=== PATIENT | male | born 1955 | race African-American/Black ===

== ENCOUNTER 2017-04-16 09:01 | Inpatient (IN) | payer OTHER ==
[2017-04-16 09:45] VITALS: BMI 20.5
--- NOTE | 2017-04-16 12:07 | HP ---
CIWA Score - CIWA Score Nausea/Vomitin Muscle Tremors: 3 Anxiety: 3 Agitation: 2 Paroxysmal Sweats: 1-Minimal Palms Moist Orientation: 0-Oriented Tacttile Disturbances: 2-Mild Itch/Numbness/Burn Auditory Disturbances: 2-Mild Harshness/Frighten Visual Disturbances: 2-Mild Sensitivity Headache: 2-Mild CIWA-Ar Total Score: 20 Admission ROS BHS - HPI Chief Complaint: i need help to stop drinking alcohol and cocaine Allergies/Adverse Reactions: Allergies Allergy/AdvReac Type Severity Reaction Status Date / Time haloperidol [From Haldol] AdvReac Severe stiffness Verified 04/16/17 11:45 haloperidol lactate AdvReac Severe stiffness Verified 04/16/17 11:45 [From Haldol] risperidone [From Risperdal] AdvReac Severe stiffness Verified 04/16/17 11:44 History of Present Illness: this 61 years old male with alcohol and cocaine dependence,seeking detox,last treatment 02/11/16 to 02/25/16 syncope alcohol related schizophrenia weight loss s/p surgery for perforated peptic ulcer in 1991 longest period of sobriety 1 year Exam Limitations: No Limitations - Ebola screening Have you traveled outside of the country in the last 21 days: No Have you been sick,other than usual withdrawal symptoms: No - Review of Systems Constitutional: Loss of Appetite, Malaise, Night Sweats, Unintentional Wgt. Loss EENT: reports: No Symptoms Reported Respiratory: reports: No Symptoms reported GI: reports: Diarrhea, Nausea, Vomiting : reports: No Symptoms Reported Musculoskeletal: reports: Back Pain, Muscle Pain Integumentary: reports: Dryness Neuro: reports: Headache, Tremors Endocrine: reports: No Symptoms Reported Hematology: reports: No Symptoms Reported Psychiatric: reports: No Sypmtoms Reported, Judgement Intact, Mood/Affect Appropiate, Orientated x3, other (schizophrenia) Patient History - Patient Medical History Hx Asthma: No Hx Chronic Obstructive Pulmonary Disease (COPD): No Hx Cancer: No Hx Cardiac Disorders: No Hx Congestive Heart Failure: No Hx Hypertension: Yes (no med) Hx Hypercholesterolemia: No Hx Pacemaker: No HX Cerebrovascular Accident: No Hx Seizures: No Hx Dementia: No Hx Diabetes: No Hx Gastrointestinal Disorders: No Hx Liver Disease: No Hx Genitourinary Disorders: No Hx Sexually Transmitted Disorders: No Hx Renal Disease (ESRD): No Hx Thyroid Disease: No Hx Human Immunodeficiency Virus (HIV): No (last 2014) Hx Hepatitis C: Yes Hx Depression: No Hx Suicide Attempt: No (DENIES) Hx Bipolar Disorder: No Hx Schizophrenia: Yes (ZYPREXA 20 MG HS) Other Medical History: no suicidal,no homicidal - Patient Surgical History Past Surgical History: Yes Hx Neurologic Surgery: No Hx Cataract Extraction: No Hx Cardiac Surgery: No Hx Lung Surgery: No Hx Breast Surgery: No Hx Breast Biopsy: No Hx Abdominal Surgery: Yes (abdomen perforated peptic ulcer in 1991) Hx Appendectomy: No Hx Cholecystectomy: No Hx Genitourinary Surgery: No Hx Section: No Hx Orthopedic Surgery: No Anesthesia Reaction: No - PPD History Previous Implant?: Yes Documented Results: Negative w/o proof Date: 02/23/16 Results: 0 mm PPD to be Administered?: Yes - Smoking Cessation Smoking history: Current every day smoker Have you smoked in the past 12 months: Yes Aproximately how many cigarettes per day: 20 Hx Chewing Tobacco Use: No Initiated information on smoking cessation: Yes 'Breaking Loose' booklet given: 04/16/17 - Substance & Tx. History Hx Alcohol Use: Yes Hx Substance Use: Yes Substance Use Type: Alcohol, Cocaine Hx Substance Use Treatment: Yes (last treatment 02/21/16 to 02/25/16) - Substances Abused Crack Route: Smoking Frequency: Daily Amount used: $20 Age of first use: 33 Date of Last Use: 04/15/17 Alcohol-vodka Route: Oral Frequency: Daily Amount used: 1 pt./2-6 pks. (beer) Age of first use: 24 Date of Last Use: 04/15/17 Family Disease History - Family Disease History Family History: Denies Admission Physical Exam S - Vital Signs Vital Signs: Vital Signs - 24 hr 04/16/17 09:41 Temperature 97.5 F L Pulse Rate 80 Respiratory 18 Rate Blood Pressure 140/87 - Physical General Appearance: Yes: Moderate Distress, Tremorous, Irritable, Sweating, Anxious HEENTM: Yes: Normal ENT Inspection, TESFAYE, Pharynx Normal Respiratory: Yes: Lungs Clear, Normal Breath Sounds, No Respiratory Distress Neck: Yes: Within Normal Limits, Supple, Trachea in good position Breast: Yes: Breast Exam Deferred Cardiology: Yes: Within Normal Limits, Regular Rhythm, Regular Rate, S1, S2 Abdominal: Yes: Within Normal Limits, Normal Bowel Sounds, Non Tender, Soft, Surgical Scar Genitourinary: Yes: Within Normal Limits Back: Yes: Muscle Spasm Musculoskeletal: Yes: full range of Motion, Back pain, Muscle Pain Neurological: Yes: door slinger II-XII NML intact, Fully Oriented, Alert, Motor Strength 5/5 Integumentary: Yes: Dry Lymphatic: Yes: Within Normal Limits - Diagnostic (1) Alcohol dependence with uncomplicated withdrawal Current Visit: No Status: Acute (2) Cocaine dependence, uncomplicated Current Visit: Yes Status: Acute (3) Nicotine dependence Current Visit: Yes Status: Acute (4) Hepatitis C Current Visit: Yes Status: Chronic Qualifiers: Viral hepatitis chronicity: chronic Hepatic coma status: without hepatic coma Qualified Code(s): B18.2 - Chronic viral hepatitis C (5) Hypertension Current Visit: Yes Status: Chronic Qualifiers: Hypertension type: essential hypertension Qualified Code(s): I10 - Essential (primary) hypertension (6) Schizophrenia Current Visit: Yes Status: Chronic Qualifiers: Schizophrenia type: unspecified Qualified Code(s): F20.9 - Schizophrenia, unspecified (7) Weight loss Current Visit: Yes Status: Acute Cleared for Admission BHS - Detox or Rehab [facility] Level of Care: Medically Managed Detox Regimen/Protocol: Librium S Breath Alcohol Content Breath Alcohol Content: 0 Urine Drug Screen - Results Drug Screen Negative: No Urine Drug Screen Results: PAOLO-Cocaine
[2017-04-16] MEDS ORDERED: MAG HYDROX/AL HYDROX/SIMETH 30 ML UNIT-DOSE CUP PO PRN (12:20)
[2017-04-16] MEDS ORDERED: IBUPROFEN 400 MG TABLET (FP) PO PRN (12:20)
[2017-04-16] MEDS ORDERED: LOPERAMIDE HCL 2 MG CAPSULE PO PRN (12:20)
[2017-04-16] MEDS ORDERED: chlordiazePOXIDE HCL 25 MG CAPSULE PO PRN (12:20)
[2017-04-16] MEDS ORDERED: diphenhydrAMINE HCL 50 MG CAPSULE PO PRN (12:20)
[2017-04-16] MEDS ORDERED: MAGNESIUM CITRATE 300 ML BOTTLE PO PRN (12:20)
[2017-04-16] MEDS ORDERED: P-EPHED 60MG/TRIPROLIDI 2.5MG TABLET PO PRN (12:20)
[2017-04-16] MEDS ORDERED: hydrOXYzine PAMOATE 25 MG CAPSULE (FP) PO PRN (12:20)
[2017-04-16] MEDS ORDERED: ACETAMINOPHEN 325 MG TABLET (FP) PO PRN (12:20)
[2017-04-16] MEDS ORDERED: MAGNESIUM HYDROX 2400MG/30ML ORAL SUSPENSION 30 ML CUP PO PRN (12:20)
[2017-04-16] MEDS ORDERED: chlordiazePOXIDE HCL 25 MG CAPSULE PO ONE (13:30)
[2017-04-16] MEDS: chlordiazePOXIDE HCL 25 MG CAPSULE PO SCH ×2 (17:22→22:22)
[2017-04-16 17:51] LABS: URINE APPEARANCE CLEAR; URINE BILIRUBIN NEGATIVE (NEGATIVE); URINE BLOOD NEGATIVE (NEGATIVE); URINE COLOR YELLOW; URINE GLUCOSE (UA) NEGATIVE (NEGATIVE); URINE KETONE NEGATIVE (NEGATIVE); URINE LEUK ESTERASE NEGATIVE (NEGATIVE); URINE NITRITE NEGATIVE (NEGATIVE); URINE PROTEIN NEGATIVE (NEGATIVE); URINE UROBILINOGEN NEGATIVE mg/dL (0.2-1.0)
[2017-04-16] MEDS: THIAMINE HCL 100 MG TABLET (FP) PO SCH (22:21)
[2017-04-16] MEDS: guaiFENesin/D-METHORPHAN HB 10 ML UNIT-DOSE CUPS PO PRN (22:23)
[2017-04-17] MEDS: guaiFENesin/D-METHORPHAN HB 10 ML UNIT-DOSE CUPS PO PRN ×2 (02:50→14:59)
[2017-04-17] MEDS: chlordiazePOXIDE HCL 25 MG CAPSULE PO SCH ×4 (05:35→22:14)
[2017-04-17 08:16] LABS: HIV 1 & 2 AB NEGATIVE; HIV 1 AGp24 NEGATIVE
[2017-04-17] MEDS: NICOTINE 21 MG/24 HOURS TOPICAL PATCH TD SCH (10:17)
[2017-04-17] MEDS: PRENATAL VITAMINS W/ FOLIC ACID TABLET (FP) PO SCH (10:18)
[2017-04-17 10:37] LABS: ANION GAP 5 (8-16); CALCIUM 9.8 mg/dL (8.5-10.1); CO2 30 mmol/L (21-32); GLUCOSE,RANDOM 94 mg/dL (74-106)
[2017-04-17 10:42] LABS: ALK PHOS 144 U/L (45-117); BILIRUBIN,TOTAL 0.5 mg/dL (0.2-1.0); SGOT/AST 99 U/L (15-37); SGPT/ALT 120 U/L (12-78); TOT PROT 8.7 g/dl (6.4-8.2)
--- NOTE | 2017-04-17 11:28 | CONSULT ---
[facility] Psychiatric Consult - Data Date of interview: 04/17/17 Admission source: [facility] Identifying data: Readmission to [facility] for this 61 y/o AA male seeking detox treatment on for alcohol and cocaine dependence.Patient is ,a father of six,domiciled,unemployed and supported on SSI benefits. Substance Abuse History: Confirmed by patient in this interview. Smoking Cessation. Smoking history: Current every day smoker. Have you smoked in the past 12 months: Yes. Aproximately how many cigarettes per day: 20. Hx Chewing Tobacco Use: No. Initiated information on smoking cessation: Yes. 'Breaking Loose' booklet given: 04/16/17. - Substance & Tx. History. Hx Alcohol Use: Yes. Hx Substance Use: Yes. Substance Use Type: Alcohol, Cocaine. Hx Substance Use Treatment: Yes (last treatment 02/21/16 to 02/25/16) Medical History: Remarkable for a history of surgery for perforated peptic ulcer ,hepatitis C and hypertension. Psychiatric History: Patient is a good and consistent historian.He reports a history of " more than 10 " psychiatric hospitalizations in his lifetime.Diagnosed with Paranoid Schizophrenia (onset at age 21).Mr Saini is still followed at the [facility].Maintained on a regimen of olanzapine 10 mg/hs and celexa 20 mg/day.Chronically non-adherent to [facility] care.Known to [facility].Patient denies history of suicide attempts. Physical/Sexual Abuse/Trauma History: Patient denies. Additional Comment: Urine Drug Screen Results: PAOLO-Cocaine.Noted. Mental Status Exam - Mental Status Exam Alert and Oriented to: Time, Place, Person Cognitive Function: Good Patient Appearance: Well Groomed Mood: Hopeful, Euthymic Affect: Appropriate, Normal Range Patient Behavior: Fatigued, Appropriate, Cooperative Speech Pattern: Clear Voice Loudness: Normal Thought Process: Goal Oriented Thought Disorder: Not Present Hallucinations: Denies Suicidal Ideation: Denies Homicidal Ideation: Denies Insight/Judgement: Poor Sleep: Poorly, Difficulty falling asleep Appetite: Good Muscle strength/Tone: Normal Gait/Station: Normal Psychiatric Findings - Problem List ([place] 1, 2,3) (1) Schizophrenia Current Visit: Yes Status: Chronic Qualifiers: Schizophrenia type: unspecified Qualified Code(s): F20.9 - Schizophrenia, unspecified (2) Alcohol dependence with uncomplicated withdrawal Current Visit: No Status: Acute (3) Cocaine dependence, uncomplicated Current Visit: Yes Status: Acute (4) Nicotine dependence Current Visit: Yes Status: Acute (5) H/O abdominal surgery Current Visit: Yes Status: Chronic (6) Hepatitis C Current Visit: Yes Status: Chronic Qualifiers: Viral hepatitis chronicity: chronic Hepatic coma status: without hepatic coma Qualified Code(s): B18.2 - Chronic viral hepatitis C (7) Hypertension Current Visit: Yes Status: Chronic Qualifiers: Hypertension type: essential hypertension Qualified Code(s): I10 - Essential (primary) hypertension (8) Insomnia Current Visit: Yes Status: Acute - Initial Treatment Plan Initial Treatment Plan: Psychoeducation.Detoxification.Medications : celexa 20 mg po daily + zyprexa 7.5 mg po hs.Side effects/benefits of both drugs are discussed with patient.He insists on resuming these medications.Observation.Pharmacy claims reviewed : none recent.Patient reports to this [facility] underwriter that he has " not taken medications for about two weeks ".
--- NOTE | 2017-04-17 12:00 | PN ---
[facility] CIWA - CIWA Score Nausea/Vomitin-No Nausea/No Vomiting Muscle Tremors: 4-Moderate,w/Arms Extend Anxiety: 3 Agitation: 3 Paroxysmal Sweats: 3 Orientation: 0-Oriented Tacttile Disturbances: 0-None Auditory Disturbances: 2-Mild Harshness/Frighten Visual Disturbances: 3-Moderate Sensitivity Headache: 0-None Present CIWA-Ar Total Score: 18 S Progress Note (SOAP) Subjective: Interrupted Sleep, Anxious, Tremors. Objective: PT. A & O X 3, OBSERVED AMBULATING ON UNIT. NO ACUTE DISTRESS. 04/17/17 11:52 Vital Signs Temperature 97.5 F L 04/17/17 09:25 Pulse Rate 79 04/17/17 09:25 Respiratory Rate 18 04/17/17 09:25 Blood Pressure 151/93 04/17/17 09:25 O2 Sat by Pulse Oximetry (%) Laboratory Tests 04/16/17 04/16/17 04/17/17 12:00 14:00 06:00 WBC 5.0 RBC 4.96 Hgb 12.5 D Hct 39.8 MCV 80.3 MCH 25.2 L MCHC 31.3 L RDW 14.1 Plt Count 297 D MPV 8.9 D Sodium Potassium Chloride Carbon Dioxide Anion Gap BUN Creatinine Creat Clearance w eGFR Random Glucose Calcium Total Bilirubin AST ALT Alkaline Phosphatase Total Protein Albumin Urine Color Yellow Urine Appearance Clear Urine pH 5.0 Ur Specific [place] 1.025 Urine Protein Negative Urine Glucose (UA) Negative Urine Ketones Negative Urine Blood Negative Urine Nitrite Negative Urine Bilirubin Negative Urine Urobilinogen Negative Ur Leukocyte Esterase Negative HIV 1&2 Antibody Screen Negative HIV P24 Antigen Negative 04/17/17 06:00 WBC RBC Hgb Hct MCV MCH MCHC RDW Plt Count MPV Sodium 140 Potassium 4.7 Chloride 105 Carbon Dioxide 30 Anion Gap 5 L BUN 22 H Creatinine 1.0 Creat Clearance w eGFR > 60 Random Glucose 94 D Calcium 9.8 Total Bilirubin 0.5 AST 99 H D ALT 120 H D Alkaline Phosphatase 144 H D Total Protein 8.7 H Albumin 3.0 L Urine Color Urine Appearance Urine pH Ur Specific [place] Urine Protein Urine Glucose (UA) Urine Ketones Urine Blood Urine Nitrite Urine Bilirubin Urine Urobilinogen Ur Leukocyte Esterase HIV 1&2 Antibody Screen HIV P24 Antigen LABS NOTED. Assessment: 04/17/17 11:54 WITHDRAWAL SYMPTOMS. CONTINUE TO MONITOR BP. 04/17/17 12:01 Plan: CONTINUE DETOX. HEPATIC FUNCTION PANEL ON 04/19/2017 FOR ABNORMAL HEPATIC VALUES ON ADMISSION.
--- NOTE | 2017-04-17 12:57 | EKG ---
Test Reason : Blood Pressure : / mmHG Vent. Rate : 079 BPM Atrial Rate : 079 BPM P-R Int : 136 ms QRS Dur : 092 ms QT Int : 394 ms P-R-T Axes : 063 056 058 degrees QTc Int : 451 ms NORMAL SINUS RHYTHM POSSIBLE LEFT ATRIAL ENLARGEMENT BORDERLINE ECG NO PREVIOUS ECGS AVAILABLE Confirmed by GINA YUAN, CHIQUITA ([id number]) on 04/17/2017 12:57:09 PM Referred By: Pantera Michaels Confirmed By:CHIQUITA FUENTES MD
[2017-04-17] MEDS: THIAMINE HCL 100 MG TABLET (FP) PO SCH (22:14)
[2017-04-17] MEDS: OLANZapine 7.5 MG TABLET PO SCH (22:14)
[2017-04-17] MEDS: MENTHOL/PHENOL 1 EACH UD MM PRN (22:16)
[2017-04-18] MEDS: guaiFENesin/D-METHORPHAN HB 10 ML UNIT-DOSE CUPS PO PRN (05:00)
[2017-04-18] MEDS: MENTHOL/PHENOL 1 EACH UD MM PRN ×3 (05:02→22:23)
[2017-04-18] MEDS: chlordiazePOXIDE HCL 25 MG CAPSULE PO SCH ×2 (05:58→10:08)
[2017-04-18] MEDS: CITALOPRAM HYDROBROMIDE 20 MG TABLET (FP) PO SCH (10:08)
[2017-04-18] MEDS: PRENATAL VITAMINS W/ FOLIC ACID TABLET (FP) PO SCH (10:08)
[2017-04-18] MEDS: NICOTINE 21 MG/24 HOURS TOPICAL PATCH TD SCH (10:09)
--- NOTE | 2017-04-18 12:43 | PN ---
[facility] CIWA - CIWA Score Nausea/Vomitin-Mild Nausea/No Vomiting Muscle Tremors: 4-Moderate,w/Arms Extend Anxiety: 4-Mod. Anxious/Guarded Agitation: 2 Paroxysmal Sweats: 3 Orientation: 2-Disoriented Date<2 days Tacttile Disturbances: 0-None Auditory Disturbances: 1-Very Mild Visual Disturbances: 2-Mild Sensitivity Headache: 0-None Present CIWA-Ar Total Score: 19 S Progress Note (SOAP) Subjective: Tremors, Chills, Sweating. Objective: PT. A & O X 2 (DISORIENTED ABOUT DAY / DATE). PT. OBSERVED AMBULATING ON UNIT. NO ACUTE DISTRESS. 04/18/17 12:41 Vital Signs Temperature 97.0 F L 04/18/17 06:35 Pulse Rate 76 04/18/17 09:48 Respiratory Rate 18 04/18/17 09:48 Blood Pressure 123/89 04/18/17 09:48 O2 Sat by Pulse Oximetry (%) Laboratory Tests 04/16/17 04/16/17 04/17/17 12:00 14:00 06:00 WBC 5.0 RBC 4.96 Hgb 12.5 D Hct 39.8 MCV 80.3 MCH 25.2 L MCHC 31.3 L RDW 14.1 Plt Count 297 D MPV 8.9 D Sodium Potassium Chloride Carbon Dioxide Anion Gap BUN Creatinine Creat Clearance w eGFR Random Glucose Calcium Total Bilirubin AST ALT Alkaline Phosphatase Total Protein Albumin Urine Color Yellow Urine Appearance Clear Urine pH 5.0 Ur Specific [place] 1.025 Urine Protein Negative Urine Glucose (UA) Negative Urine Ketones Negative Urine Blood Negative Urine Nitrite Negative Urine Bilirubin Negative Urine Urobilinogen Negative Ur Leukocyte Esterase Negative RPR Titer HIV 1&2 Antibody Screen Negative HIV P24 Antigen Negative 04/17/17 04/17/17 06:00 06:00 WBC RBC Hgb Hct MCV MCH MCHC RDW Plt Count MPV Sodium 140 Potassium 4.7 Chloride 105 Carbon Dioxide 30 Anion Gap 5 L BUN 22 H Creatinine 1.0 Creat Clearance w eGFR > 60 Random Glucose 94 D Calcium 9.8 Total Bilirubin 0.5 AST 99 H D ALT 120 H D Alkaline Phosphatase 144 H D Total Protein 8.7 H Albumin 3.0 L Urine Color Urine Appearance Urine pH Ur Specific [place] Urine Protein Urine Glucose (UA) Urine Ketones Urine Blood Urine Nitrite Urine Bilirubin Urine Urobilinogen Ur Leukocyte Esterase RPR Titer Nonreactive HIV 1&2 Antibody Screen HIV P24 Antigen LABS NOTED. Assessment: 04/18/17 12:42 WITHDRAWAL SYMPTOMS. Plan: CONTINUE DETOX.
[2017-04-18] MEDS: chlordiazePOXIDE 5 MG CAPSULE PO SCH ×2 (17:04→22:23)
[2017-04-18] MEDS: OLANZapine 7.5 MG TABLET PO SCH (22:22)
[2017-04-18] MEDS: THIAMINE HCL 100 MG TABLET (FP) PO SCH (22:22)
[2017-04-19] MEDS: chlordiazePOXIDE 5 MG CAPSULE PO SCH ×2 (05:18→10:18)
[2017-04-19] MEDS: MENTHOL/PHENOL 1 EACH UD MM PRN ×3 (05:21→22:18)
[2017-04-19 09:47] LABS: ALBUMIN 2.8 g/dl (3.4-5.0); BILIRUBIN,DIRECT 0.2 mg/dL (0.0-0.2); BILIRUBIN,TOTAL 0.2 mg/dL (0.2-1.0); TOT PROT 7.8 g/dl (6.4-8.2)
[2017-04-19] MEDS: CITALOPRAM HYDROBROMIDE 20 MG TABLET (FP) PO SCH (10:19)
[2017-04-19] MEDS: PRENATAL VITAMINS W/ FOLIC ACID TABLET (FP) PO SCH (10:19)
[2017-04-19] MEDS: NICOTINE 21 MG/24 HOURS TOPICAL PATCH TD SCH (10:19)
--- NOTE | 2017-04-19 11:44 | PN ---
BHS Progress Note (SOAP) Subjective: sweats Objective: 04/19/17 11:41 Vital Signs Temperature 97.5 F L 04/19/17 10:18 Pulse Rate 91 H 04/19/17 10:18 Respiratory Rate 20 04/19/17 10:18 Blood Pressure 120/80 04/19/17 10:18 O2 Sat by Pulse Oximetry (%) Laboratory Tests 04/16/17 04/16/17 04/17/17 12:00 14:00 06:00 WBC 5.0 RBC 4.96 Hgb 12.5 D Hct 39.8 MCV 80.3 MCH 25.2 L MCHC 31.3 L RDW 14.1 Plt Count 297 D MPV 8.9 D Sodium Potassium Chloride Carbon Dioxide Anion Gap BUN Creatinine Creat Clearance w eGFR Random Glucose Calcium Total Bilirubin Direct Bilirubin AST ALT Alkaline Phosphatase Total Protein Albumin Urine Color Yellow Urine Appearance Clear Urine pH 5.0 Ur Specific [place] 1.025 Urine Protein Negative Urine Glucose (UA) Negative Urine Ketones Negative Urine Blood Negative Urine Nitrite Negative Urine Bilirubin Negative Urine Urobilinogen Negative Ur Leukocyte Esterase Negative RPR Titer HIV 1&2 Antibody Screen Negative HIV P24 Antigen Negative 04/17/17 04/17/17 04/19/17 06:00 06:00 07:00 WBC RBC Hgb Hct MCV MCH MCHC RDW Plt Count MPV Sodium 140 Potassium 4.7 Chloride 105 Carbon Dioxide 30 Anion Gap 5 L BUN 22 H Creatinine 1.0 Creat Clearance w eGFR > 60 Random Glucose 94 D Calcium 9.8 Total Bilirubin 0.5 0.2 D Direct Bilirubin 0.2 AST 99 H D 94 H ALT 120 H D 116 H Alkaline Phosphatase 144 H D 107 D Total Protein 8.7 H 7.8 Albumin 3.0 L 2.8 L Urine Color Urine Appearance Urine pH Ur Specific [place] Urine Protein Urine Glucose (UA) Urine Ketones Urine Blood Urine Nitrite Urine Bilirubin Urine Urobilinogen Ur Leukocyte Esterase RPR Titer Nonreactive HIV 1&2 Antibody Screen HIV P24 Antigen pt aox3 in nad ambulatng Assessment: 04/19/17 11:42 withdrawal sx's Plan: cont. detox increase fluids d/c in am
[2017-04-19] MEDS: chlordiazePOXIDE HCL 10 MG CAPSULE PO SCH ×2 (17:21→22:17)
[2017-04-19] MEDS: THIAMINE HCL 100 MG TABLET (FP) PO SCH (22:17)
[2017-04-19] MEDS: OLANZapine 7.5 MG TABLET PO SCH (22:17)
[2017-04-20] MEDS: MENTHOL/PHENOL 1 EACH UD MM PRN (02:37)
[2017-04-20] MEDS: guaiFENesin/D-METHORPHAN HB 10 ML UNIT-DOSE CUPS PO PRN (02:37)
[2017-04-20] MEDS: chlordiazePOXIDE HCL 10 MG CAPSULE PO SCH (05:57)
[2017-04-20 06:49] VITALS: BP 119/90; PULSE 99; TEMP 97.7
[2017-04-20] MEDS: NICOTINE 21 MG/24 HOURS TOPICAL PATCH TD SCH (09:00)
[2017-04-20] MEDS: PRENATAL VITAMINS W/ FOLIC ACID TABLET (FP) PO SCH (09:00)
[2017-04-20] MEDS: CITALOPRAM HYDROBROMIDE 20 MG TABLET (FP) PO SCH (09:00)
--- NOTE | 2017-04-20 19:43 | DS ---
[facility] Detox Discharge Summary Admission Date: 04/16/17 Discharge Date: 04/20/17 - History Present History: Alcohol Dependence, Cocaine Dependence Additional Comments: PATIENT WILL GO TO [facility] ([place], [place]) FOR AFTERCARE. PATIENT WAS DISCHARGED FROM UNIT IN STABLE MEDICAL CONDITION. Pertinent Past History: Hep C, HTN (No meds.), History of Abdominal Surgery, Insomnia, Schizophrenia. - Physical Exam Results Vital Signs: Vital Signs Temperature 97.7 F 04/20/17 06:48 Pulse Rate 99 H 04/20/17 06:48 Respiratory Rate 18 04/20/17 06:48 Blood Pressure 119/90 04/20/17 06:48 O2 Sat by Pulse Oximetry (%) Pertinent Admission Physical Exam Findings: WITHDRAWAL SYMPTOMS. Laboratory Tests 04/16/17 04/16/17 04/17/17 12:00 14:00 06:00 WBC 5.0 RBC 4.96 Hgb 12.5 D Hct 39.8 MCV 80.3 MCH 25.2 L MCHC 31.3 L RDW 14.1 Plt Count 297 D MPV 8.9 D Sodium Potassium Chloride Carbon Dioxide Anion Gap BUN Creatinine Creat Clearance w eGFR Random Glucose Calcium Total Bilirubin Direct Bilirubin AST ALT Alkaline Phosphatase Total Protein Albumin Urine Color Yellow Urine Appearance Clear Urine pH 5.0 Ur Specific [place] 1.025 Urine Protein Negative Urine Glucose (UA) Negative Urine Ketones Negative Urine Blood Negative Urine Nitrite Negative Urine Bilirubin Negative Urine Urobilinogen Negative Ur Leukocyte Esterase Negative RPR Titer HIV 1&2 Antibody Screen Negative HIV P24 Antigen Negative 04/17/17 04/17/17 04/19/17 06:00 06:00 07:00 WBC RBC Hgb Hct MCV MCH MCHC RDW Plt Count MPV Sodium 140 Potassium 4.7 Chloride 105 Carbon Dioxide 30 Anion Gap 5 L BUN 22 H Creatinine 1.0 Creat Clearance w eGFR > 60 Random Glucose 94 D Calcium 9.8 Total Bilirubin 0.5 0.2 D Direct Bilirubin 0.2 AST 99 H D 94 H ALT 120 H D 116 H Alkaline Phosphatase 144 H D 107 D Total Protein 8.7 H 7.8 Albumin 3.0 L 2.8 L Urine Color Urine Appearance Urine pH Ur Specific [place] Urine Protein Urine Glucose (UA) Urine Ketones Urine Blood Urine Nitrite Urine Bilirubin Urine Urobilinogen Ur Leukocyte Esterase RPR Titer Nonreactive HIV 1&2 Antibody Screen HIV P24 Antigen LABS NOTED. - Treatment Hospital Course: Detox Protocol Followed, Detoxed Safely, Responded well, Discharged Condition Good Patient has Accepted a Rehab Referral to: PT. GOING TO [facility] ([place], [place]) FOR AFTERCARE. - Medication Discharge Medications: Ambulatory Orders Olanzapine [Zyprexa] 20 mg PO HS 02/21/16 Citalopram Hydrobromide [Celexa -] 20 mg PO DAILY #30 tablet 04/17/17 Olanzapine [Zyprexa] 10 mg PO HS #30 tablet 04/17/17 - Diagnosis (1) Alcohol dependence with uncomplicated withdrawal Status: Acute (2) Cocaine dependence, uncomplicated Status: Acute (3) Insomnia Status: Acute Qualifiers: Insomnia type: unspecified Qualified Code(s): G47.00 - Insomnia, unspecified (4) Nicotine dependence Status: Chronic Qualifiers: Nicotine product type: cigarettes Substance use status: uncomplicated Qualified Code(s): F17.210 - Nicotine dependence, cigarettes, uncomplicated (5) Weight loss Status: Acute (6) H/O abdominal surgery Status: Chronic (7) Hepatitis C Status: Chronic Qualifiers: Viral hepatitis chronicity: chronic Hepatic coma status: without hepatic coma Qualified Code(s): B18.2 - Chronic viral hepatitis C (8) Hypertension Status: Chronic Qualifiers: Hypertension type: essential hypertension Qualified Code(s): I10 - Essential (primary) hypertension (9) Schizophrenia Status: Chronic Qualifiers: Schizophrenia type: unspecified Qualified Code(s): F20.9 - Schizophrenia, unspecified - AMA Did Patient Leave Against Medical Advice: No
== END 2017-04-20 09:09 | disposition home or self-care (01) | DRG 774 ==
LOC: YASAS 09:01 → Y3N 12:09
PROVIDERS: ADMIT Internal Medicine; ATTEND Internal Medicine
PROC: HZ2ZZZZ Detoxification Services for Substance Abuse Treatment (ICD-10-PCS; principal; 2017-04-20)
DX: F10.20 Alcohol dependence, uncomplicated (principal); F14.20 Cocaine dependence, uncomplicated; F17.210 Nicotine dependence, cigarettes, uncomplicated; F20.9 Schizophrenia, unspecified; G47.00 Insomnia, unspecified; B18.2 Chronic viral hepatitis C; I10 Essential (primary) hypertension; R63.4 Abnormal weight loss; Z68.20 Body mass index [BMI] 20.0-20.9, adult
CPT/HCPCS: 36415; 80053; 80076; 81003; 85027; 86593; 87389; 93005; 93010

== ENCOUNTER 2017-05-15 11:34 | Inpatient (IN) | payer OTHER ==
[2017-05-15 13:00] VITALS: BMI 22.8
--- NOTE | 2017-05-15 17:11 | HP ---
Admission ROS S - HPI Chief Complaint: I WANT TO GO TO REHAB Allergies/Adverse Reactions: Allergies Allergy/AdvReac Type Severity Reaction Status Date / Time haloperidol [From Haldol] AdvReac Severe stiffness Verified 05/15/17 16:48 haloperidol lactate AdvReac Severe stiffness Verified 05/15/17 16:48 [From Haldol] risperidone [From Risperdal] AdvReac Severe stiffness Verified 05/15/17 16:48 History of Present Illness: 61 YEARS OLD MALE WITH LONG HISTORY OF ALCOHOL COCAINE NICOTINE DEPENDENCE HAS HEPATITIS C AND SCHIZOPHRENIA IS ADMITTED TO REHAB Exam Limitations: No Limitations - Ebola screening Have you traveled outside of the country in the last 21 days: No Have you had contact with anyone from an Ebola affected area: No Have you been sick,other than usual withdrawal symptoms: No Do you have a fever: No - Review of Systems Constitutional: Loss of Appetite, Unintentional Wgt. Loss, Unexplained wgt Loss EENT: reports: Dental Problems (NO TEETH ABLE TO CHEW REGULAR FOOD) Respiratory: reports: No Symptoms reported Cardiac: reports: No Symptoms Reported GI: reports: Poor Appetite : reports: No Symptoms Reported Musculoskeletal: reports: No Symptoms Reported Integumentary: reports: No Symptoms Reported Neuro: reports: No Symptoms reported Endocrine: reports: No Symptoms Reported Hematology: reports: No Symptoms Reported Psychiatric: reports: Judgement Intact, Anxious, Depressed Other Systems: Reviewed and Negative Patient History - Patient Medical History Hx Anemia: No Hx Asthma: No Hx Chronic Obstructive Pulmonary Disease (COPD): No Hx Cancer: No Hx Cardiac Disorders: No Hx Congestive Heart Failure: No Hx Hypertension: No (no med) Hx Hypercholesterolemia: No Hx Pacemaker: No HX Cerebrovascular Accident: No Hx Seizures: No Hx Dementia: No Hx Diabetes: No Hx Gastrointestinal Disorders: No Hx Liver Disease: No Hx Genitourinary Disorders: No Hx Sexually Transmitted Disorders: No Hx Renal Disease (ESRD): No Hx Thyroid Disease: No Hx Human Immunodeficiency Virus (HIV): No (last 2014) Hx Hepatitis C: Yes Hx Depression: No Hx Suicide Attempt: No (DENIES) Hx Bipolar Disorder: No Hx Schizophrenia: Yes (ZYPREXA 20 MG HS) - Patient Surgical History Past Surgical History: Yes Hx Neurologic Surgery: No Hx Cataract Extraction: No Hx Cardiac Surgery: No Hx Lung Surgery: No Hx Breast Surgery: No Hx Breast Biopsy: No Hx Abdominal Surgery: Yes (abdomen perforated peptic ulcer in 1991) Hx Appendectomy: No Hx Cholecystectomy: No Hx Genitourinary Surgery: No Hx Orthopedic Surgery: No Anesthesia Reaction: No - PPD History Previous Implant?: Yes Documented Results: Negative w/proof Implanted On Prior [facility] Admission?: Yes Date: 04/18/17 Results: 0 mm PPD to be Administered?: No - Smoking Cessation Smoking history: Current every day smoker Have you smoked in the past 12 months: Yes Aproximately how many cigarettes per day: 40 Cigars Per Day: 0 Hx Chewing Tobacco Use: No Initiated information on smoking cessation: Yes 'Breaking Loose' booklet given: 05/15/17 - Substance & Tx. History Hx Alcohol Use: Yes Hx Substance Use: Yes Substance Use Type: Alcohol, Cocaine Hx Substance Use Treatment: Yes (04/16-04/20/17 [facility]) - Substances Abused Alcohol Route: Oral Frequency: Daily Amount used: 1 PINT VODKA Age of first use: 24 Date of Last Use: 05/15/17 Cocaine Route: Smoking Frequency: Daily Amount used: $40 Age of first use: 33 Date of Last Use: 05/10/17 Family Disease History - Family Disease History Family Disease History: CA: Father (), Mother (), Other: Father , Mother Admission Physical Exam S - Vital Signs Vital Signs: Vital Signs - 24 hr 05/15/17 12:58 Temperature 97 F L Pulse Rate 91 H Respiratory 20 Rate Blood Pressure 124/80 - Physical General Appearance: Yes: No Apparent Distress, Appropriately Dressed, Thin HEENTM: Yes: Hearing grossly Normal, Normal ENT Inspection, Normocephalic, Normal Voice, Other (NO TEETH) Respiratory: Yes: Chest Non-Tender, Lungs Clear, Normal Breath Sounds, No Respiratory Distress, No Accessory Muscle Use Neck: Yes: Supple, Trachea in good position Breast: Yes: Breasts Symetrical Cardiology: Yes: Regular Rhythm, S1, S2, Tachycardia Abdominal: Yes: Normal Bowel Sounds, Non Tender, Soft, Surgical Scar Genitourinary: Yes: Within Normal Limits Back: Yes: Normal Inspection Musculoskeletal: Yes: full range of Motion, Gait Steady Extremities: Yes: Normal Inspection, Normal Range of Motion, Non-Tender Neurological: Yes: Fully Oriented, Alert, Motor Strength 5/5, Normal Response, Depressed Affect Integumentary: Yes: Warm Lymphatic: Yes: Within Normal Limits - Diagnostic (1) Alcohol dependence with uncomplicated withdrawal Current Visit: Yes Status: Acute (2) Cocaine dependence, uncomplicated Current Visit: Yes Status: Chronic (3) Weight loss Current Visit: Yes Status: Acute (4) Hepatitis C Current Visit: Yes Status: Chronic Qualifiers: Viral hepatitis chronicity: chronic Hepatic coma status: without hepatic coma Qualified Code(s): B18.2 - Chronic viral hepatitis C (5) Nicotine dependence Current Visit: Yes Status: Acute Qualifiers: Nicotine product type: cigarettes Substance use status: in withdrawal Qualified Code(s): F17.213 - Nicotine dependence, cigarettes, with withdrawal (6) Schizophrenia Current Visit: Yes Status: Suspected Qualifiers: Schizophrenia type: unspecified Qualified Code(s): F20.9 - Schizophrenia, unspecified Cleared for Admission [facility] - Detox or Rehab [facility] Level of Care: Observation Bed Detox Regimen/Protocol: Not Applicable Claeared for Rehab Admission: Yes [facility] Breath Alcohol Content Breath Alcohol Content: 0 Urine Drug Screen - Results Drug Screen Negative: No Urine Drug Screen Results: PAOLO-Cocaine, BZO-Benzodiazepines Inpatient Rehab Admission - Initial Determination Are CD services needed?: Yes Free of communicable disease: Yes Not in need of hospitalization: Yes - Rehab Admission Criteria Previous failed treatment: Yes Poor recovery environment: Yes Comorbidities: Yes Lacks judgement: No Patient is meeting Inpatient Rehab admission criteria:: Yes
[2017-05-15] MEDS ORDERED: P-EPHED 60MG/TRIPROLIDI 2.5MG TABLET PO PRN (17:17)
[2017-05-15] MEDS ORDERED: MAG HYDROX/AL HYDROX/SIMETH 30 ML UNIT-DOSE CUP PO PRN (17:17)
[2017-05-15] MEDS ORDERED: LOPERAMIDE HCL 2 MG CAPSULE PO PRN (17:17)
[2017-05-15] MEDS ORDERED: MENTHOL/PHENOL 1 EACH UD MM PRN (17:17)
[2017-05-15] MEDS ORDERED: ACETAMINOPHEN 325 MG TABLET (FP) PO PRN (17:17)
[2017-05-15] MEDS ORDERED: guaiFENesin/D-METHORPHAN HB 10 ML UNIT-DOSE CUPS PO PRN (17:17)
[2017-05-15] MEDS ORDERED: NICOTINE POLACRILEX 4 MG GUM BC PRN (17:17)
[2017-05-15] MEDS ORDERED: IBUPROFEN 400 MG TABLET (FP) PO PRN (17:17)
[2017-05-15] MEDS ORDERED: hydrOXYzine PAMOATE 50 MG CAPSULE (FP) PO PRN (17:17)
[2017-05-15] MEDS ORDERED: MAGNESIUM CITRATE 300 ML BOTTLE PO PRN (17:17)
[2017-05-15] MEDS ORDERED: MAGNESIUM HYDROX 2400MG/30ML ORAL SUSPENSION 30 ML CUP PO PRN (17:17)
[2017-05-15 21:25] LABS: URINE APPEARANCE SLCLOUDY; URINE BILIRUBIN NEGATIVE (NEGATIVE); URINE BLOOD NEGATIVE (NEGATIVE); URINE COLOR YELLOW; URINE GLUCOSE (UA) NEGATIVE (NEGATIVE); URINE KETONE NEGATIVE (NEGATIVE); URINE LEUK ESTERASE TRACE (NEGATIVE); URINE NITRITE NEGATIVE (NEGATIVE); URINE PROTEIN NEGATIVE (NEGATIVE); URINE UROBILINOGEN NEGATIVE mg/dL (0.2-1.0)
[2017-05-15] MEDS: THIAMINE HCL 100 MG TABLET (FP) PO SCH (21:32)
[2017-05-15] MEDS: diphenhydrAMINE HCL 50 MG CAPSULE PO PRN (21:42)
[2017-05-15 21:47] LABS: CALCIUM OXALATE CRYSTALS FEW /hpf (NONE SEEN); URINE HYALINE CAST 1 /lpf; URINE MUCUS RARE; URINE RBC 1 /hpf (0-3); URINE WBC 5 /hpf (3-5)
[2017-05-16] MEDS: PRENATAL VITAMINS W/ FOLIC ACID TABLET (FP) PO SCH (10:06)
[2017-05-16] MEDS: NICOTINE 21 MG/24 HOURS TOPICAL PATCH TD SCH (10:07)
--- NOTE | 2017-05-16 11:38 | HP ---
Psychiatrist Admission - Data Date of interview: 05/16/17 Admission source: [facility] Identifying data: This is the first [facility] admission for this 61 years old Black male, father of 6 children, unemployed on SSI, homeless Medical History: Significant for hypertension, hepatitis c and a history of surgery for perforated peptic ulcer in 1991. Smokes cigarettes 2ppd Psychiatric History: Reports history of Paranoid Schizophrenia diagnosed at age 21 and has had multiple psychiatric admissions to hospitals in [place] & [facility], [facility]). Most recent admission was in January- February 2017 to [facility] for paranoid delusions. Reports receiving OPD services from [facility] ACT team and he is prescribed Zyprexa 20 mg po HS and Celexa 20 mg po daily. Reports chronic non-compliance with aftercare treatment and has been off medication since his discharge from [facility] last February. Reports doing well despite being off meds. Denies experiencing psychotic, manic or depressive symptoms as well as S/H ideations. Physical/Sexual Abuse/Trauma History: Denies history of verbal, physical or sexual abuse as well as DV relationship Additional Comment: Reports history multiple previous misdemeanor arrests. No probation at present Vital Signs: Vital Signs - 24 hr 05/15/17 05/16/17 05/16/17 12:58 00:30 07:03 Temperature 97 F L 99.2 F Pulse Rate 91 H 89 Respiratory 20 20 18 Rate Blood Pressure 124/80 123/69 Allergies/Adverse Reactions: Allergies Allergy/AdvReac Type Severity Reaction Status Date / Time haloperidol [From Haldol] AdvReac Severe stiffness Verified 05/15/17 16:48 haloperidol lactate AdvReac Severe stiffness Verified 05/15/17 16:48 [From Haldol] risperidone [From Risperdal] AdvReac Severe stiffness Verified 05/15/17 16:48 Date of last physical exam: 05/15/17 Concur with the findings of this exam: Yes - Substance Abuse/Tx History Hx Alcohol Use: Yes Hx Substance Use: Yes Substance Use Type: Alcohol (Started drinking alcohol at age 24, consumes one pint of vodka daily. Last drink on 05/15/17), Cocaine (Started smoking crack cocaine at age 33, consumes $40 worth daily. Last smoked on 05/10/17) Hx Substance Use Treatment: Yes (Multiple inpt detox & one rehab([facility])) Mental Status Exam - Mental Status Exam Alert and Oriented to: Time, Place, Person Patient Appearance: Disheveled Mood: Hopeful, Euthymic Affect: Appropriate Patient Behavior: Cooperative Speech Pattern: Clear Voice Loudness: Normal Thought Process: Intact, Goal Oriented Thought Disorder: Not Present Hallucinations: Denies Suicidal Ideation: Denies Homicidal Ideation: Denies Insight/Judgement: Fair Sleep: Well Appetite: Good Muscle strength/Tone: Normal Gait/Station: Normal Psychiatric Findings - Problem List ([place] 1, 2,3) (1) Alcohol dependence Current Visit: Yes Status: Acute (2) Cocaine dependence Current Visit: Yes Status: Acute (3) Nicotine dependence Current Visit: Yes Status: Acute Qualifiers: Nicotine product type: cigarettes Substance use status: in withdrawal Qualified Code(s): F17.213 - Nicotine dependence, cigarettes, with withdrawal (4) Paranoid schizophrenia Current Visit: Yes Status: Acute (5) Hepatitis C Current Visit: Yes Status: Chronic Qualifiers: Viral hepatitis chronicity: chronic Hepatic coma status: without hepatic coma Qualified Code(s): B18.2 - Chronic viral hepatitis C (6) H/O abdominal surgery Current Visit: No Status: Chronic (7) Hypertension Current Visit: No Status: Chronic Qualifiers: Hypertension type: essential hypertension Qualified Code(s): I10 - Essential (primary) hypertension - Initial Treatment Plan Initial Treatment Plan: 1) Resume Zyprexa 20 mg po HS and Celexa 20 mg po daily. 2) Monitor progress
[2017-05-16 14:02] LABS: ALBUMIN 2.7 g/dl (3.4-5.0); ANION GAP 7 (8-16); CALCIUM 8.2 mg/dL (8.5-10.1); CO2 31 mmol/L (21-32); GLUCOSE,RANDOM 193 mg/dL (74-106); SGOT/AST 79 U/L (15-37); SGPT/ALT 119 U/L (12-78)
[2017-05-16 14:04] LABS: ALK PHOS 87 U/L (45-117); BILIRUBIN,TOTAL 0.7 mg/dL (0.2-1.0); TOT PROT 7.2 g/dl (6.4-8.2)
[2017-05-16 14:19] LABS: PLATELET COUNT 127 K/MM3 (134-434); RDW 15.2 % (11.9-15.9); WHITE BLOOD COUNT 6.8 K/mm3 (4.0-10.0)
[2017-05-16 14:22] LABS: MCH 24.8 pg (25.7-33.7); MCHC 30.7 g/dl (32.0-35.9); MEAN CELL VOLUME 80.7 fl (80-96)
[2017-05-16] MEDS: CITALOPRAM HYDROBROMIDE 20 MG TABLET (FP) PO SCH (14:41)
--- NOTE | 2017-05-16 15:58 | EKG ---
Test Reason : Blood Pressure : / mmHG Vent. Rate : 076 BPM Atrial Rate : 076 BPM P-R Int : 148 ms QRS Dur : 094 ms QT Int : 374 ms P-R-T Axes : 068 051 064 degrees QTc Int : 420 ms NORMAL SINUS RHYTHM POSSIBLE LEFT ATRIAL ENLARGEMENT LEFT VENTRICULAR HYPERTROPHY ABNORMAL ECG WHEN COMPARED WITH ECG OF 16-APR-2017 13:23, NO SIGNIFICANT CHANGE WAS FOUND Confirmed by ALBANIA ORTA MD ([id number]) on 05/16/2017 3:58:25 PM Referred By: Confirmed By:ALBANIA ORTA MD
[2017-05-16] MEDS: THIAMINE HCL 100 MG TABLET (FP) PO SCH (21:43)
[2017-05-16] MEDS: OLANZapine 10 MG TABLET PO SCH (21:43)
[2017-05-17] MEDS: PRENATAL VITAMINS W/ FOLIC ACID TABLET (FP) PO SCH (10:26)
[2017-05-17] MEDS: CITALOPRAM HYDROBROMIDE 20 MG TABLET (FP) PO SCH (10:27)
[2017-05-17] MEDS: NICOTINE 21 MG/24 HOURS TOPICAL PATCH TD SCH (10:27)
[2017-05-17] MEDS: THIAMINE HCL 100 MG TABLET (FP) PO SCH (21:54)
[2017-05-17] MEDS: OLANZapine 10 MG TABLET PO SCH (21:54)
[2017-05-18] MEDS: PRENATAL VITAMINS W/ FOLIC ACID TABLET (FP) PO SCH (09:45)
[2017-05-18] MEDS: CITALOPRAM HYDROBROMIDE 20 MG TABLET (FP) PO SCH (09:45)
[2017-05-18] MEDS: NICOTINE 21 MG/24 HOURS TOPICAL PATCH TD SCH (09:45)
[2017-05-18] MEDS: THIAMINE HCL 100 MG TABLET (FP) PO SCH (22:47)
[2017-05-18] MEDS: OLANZapine 10 MG TABLET PO SCH (22:48)
[2017-05-19] MEDS: NICOTINE 21 MG/24 HOURS TOPICAL PATCH TD SCH (10:01)
[2017-05-19] MEDS: PRENATAL VITAMINS W/ FOLIC ACID TABLET (FP) PO SCH (10:01)
[2017-05-19] MEDS: CITALOPRAM HYDROBROMIDE 20 MG TABLET (FP) PO SCH (10:01)
[2017-05-19] MEDS: THIAMINE HCL 100 MG TABLET (FP) PO SCH (21:54)
[2017-05-19] MEDS: OLANZapine 10 MG TABLET PO SCH (21:54)
[2017-05-19] MEDS: diphenhydrAMINE HCL 50 MG CAPSULE PO PRN (21:54)
[2017-05-20] MEDS: CITALOPRAM HYDROBROMIDE 20 MG TABLET (FP) PO SCH (09:42)
[2017-05-20] MEDS: NICOTINE 21 MG/24 HOURS TOPICAL PATCH TD SCH (09:42)
[2017-05-20] MEDS: PRENATAL VITAMINS W/ FOLIC ACID TABLET (FP) PO SCH (09:42)
[2017-05-20] MEDS: OLANZapine 10 MG TABLET PO SCH (22:06)
[2017-05-20] MEDS: THIAMINE HCL 100 MG TABLET (FP) PO SCH (22:06)
[2017-05-21] MEDS: CITALOPRAM HYDROBROMIDE 20 MG TABLET (FP) PO SCH (10:00)
[2017-05-21] MEDS: NICOTINE 21 MG/24 HOURS TOPICAL PATCH TD SCH (10:00)
[2017-05-21] MEDS: PRENATAL VITAMINS W/ FOLIC ACID TABLET (FP) PO SCH (10:00)
[2017-05-21] MEDS: OLANZapine 10 MG TABLET PO SCH (21:25)
[2017-05-21] MEDS: THIAMINE HCL 100 MG TABLET (FP) PO SCH (21:25)
[2017-05-22] MEDS: NICOTINE 21 MG/24 HOURS TOPICAL PATCH TD SCH (10:33)
[2017-05-22] MEDS: CITALOPRAM HYDROBROMIDE 20 MG TABLET (FP) PO SCH (10:33)
[2017-05-22] MEDS: PRENATAL VITAMINS W/ FOLIC ACID TABLET (FP) PO SCH (10:33)
[2017-05-22] MEDS: OLANZapine 10 MG TABLET PO SCH (21:33)
[2017-05-22] MEDS: THIAMINE HCL 100 MG TABLET (FP) PO SCH (21:33)
[2017-05-23] MEDS: PRENATAL VITAMINS W/ FOLIC ACID TABLET (FP) PO SCH (10:02)
[2017-05-23] MEDS: CITALOPRAM HYDROBROMIDE 20 MG TABLET (FP) PO SCH (10:02)
[2017-05-23] MEDS: NICOTINE 21 MG/24 HOURS TOPICAL PATCH TD SCH (10:02)
[2017-05-23] MEDS: THIAMINE HCL 100 MG TABLET (FP) PO SCH (23:40)
[2017-05-23] MEDS: OLANZapine 10 MG TABLET PO SCH (23:41)
[2017-05-24] MEDS: PRENATAL VITAMINS W/ FOLIC ACID TABLET (FP) PO SCH (10:14)
[2017-05-24] MEDS: CITALOPRAM HYDROBROMIDE 20 MG TABLET (FP) PO SCH (10:14)
[2017-05-24] MEDS: NICOTINE 21 MG/24 HOURS TOPICAL PATCH TD SCH (10:16)
[2017-05-24] MEDS: OLANZapine 10 MG TABLET PO SCH (21:40)
[2017-05-24] MEDS: THIAMINE HCL 100 MG TABLET (FP) PO SCH (21:40)
[2017-05-25] MEDS: PRENATAL VITAMINS W/ FOLIC ACID TABLET (FP) PO SCH (10:21)
[2017-05-25] MEDS: CITALOPRAM HYDROBROMIDE 20 MG TABLET (FP) PO SCH (10:21)
[2017-05-25] MEDS: NICOTINE 21 MG/24 HOURS TOPICAL PATCH TD SCH (10:22)
[2017-05-25] MEDS: THIAMINE HCL 100 MG TABLET (FP) PO SCH (22:07)
[2017-05-25] MEDS: OLANZapine 10 MG TABLET PO SCH (22:07)
[2017-05-25] MEDS: diphenhydrAMINE HCL 50 MG CAPSULE PO PRN (22:08)
[2017-05-26] MEDS: PRENATAL VITAMINS W/ FOLIC ACID TABLET (FP) PO SCH (10:19)
[2017-05-26] MEDS: CITALOPRAM HYDROBROMIDE 20 MG TABLET (FP) PO SCH (10:19)
[2017-05-26] MEDS: NICOTINE 21 MG/24 HOURS TOPICAL PATCH TD SCH (10:19)
[2017-05-26] MEDS: OLANZapine 10 MG TABLET PO SCH (21:38)
[2017-05-26] MEDS: THIAMINE HCL 100 MG TABLET (FP) PO SCH (21:38)
[2017-05-27] MEDS: NICOTINE 21 MG/24 HOURS TOPICAL PATCH TD SCH (10:00)
[2017-05-27] MEDS: PRENATAL VITAMINS W/ FOLIC ACID TABLET (FP) PO SCH (10:00)
[2017-05-27] MEDS: CITALOPRAM HYDROBROMIDE 20 MG TABLET (FP) PO SCH (10:00)
[2017-05-27] MEDS: THIAMINE HCL 100 MG TABLET (FP) PO SCH (21:24)
[2017-05-27] MEDS: diphenhydrAMINE HCL 50 MG CAPSULE PO PRN (21:24)
[2017-05-27] MEDS: OLANZapine 10 MG TABLET PO SCH (21:25)
[2017-05-28] MEDS: CITALOPRAM HYDROBROMIDE 20 MG TABLET (FP) PO SCH (10:32)
[2017-05-28] MEDS: PRENATAL VITAMINS W/ FOLIC ACID TABLET (FP) PO SCH (10:32)
[2017-05-28] MEDS: NICOTINE 21 MG/24 HOURS TOPICAL PATCH TD SCH (10:32)
[2017-05-28] MEDS: OLANZapine 10 MG TABLET PO SCH (21:45)
[2017-05-28] MEDS: THIAMINE HCL 100 MG TABLET (FP) PO SCH (21:45)
[2017-05-29] MEDS: NICOTINE 21 MG/24 HOURS TOPICAL PATCH TD SCH (10:11)
[2017-05-29] MEDS: PRENATAL VITAMINS W/ FOLIC ACID TABLET (FP) PO SCH (10:11)
[2017-05-29] MEDS: CITALOPRAM HYDROBROMIDE 20 MG TABLET (FP) PO SCH (10:11)
[2017-05-29] MEDS: OLANZapine 10 MG TABLET PO SCH (21:14)
[2017-05-29] MEDS: diphenhydrAMINE HCL 50 MG CAPSULE PO PRN (21:14)
[2017-05-29] MEDS: THIAMINE HCL 100 MG TABLET (FP) PO SCH (21:14)
[2017-05-30 07:11] VITALS: TEMP 98.2
[2017-05-30] MEDS: NICOTINE 21 MG/24 HOURS TOPICAL PATCH TD SCH (09:45)
[2017-05-30] MEDS: PRENATAL VITAMINS W/ FOLIC ACID TABLET (FP) PO SCH (09:45)
[2017-05-30] MEDS: CITALOPRAM HYDROBROMIDE 20 MG TABLET (FP) PO SCH (09:45)
[2017-05-30 10:43] VITALS: BP 117/78; PULSE 90
--- NOTE | 2017-05-30 13:18 | PN ---
Psychiatric Progress Note Vital Signs: Vital Signs Period Temp Pulse Resp BP Sys/[place] Valle Pulse Ox Last 24 Hr 98.2 F 79-90 18-18 117-152/78-95 Date of Session: 05/30/17 Chief Complaint:: Discharge Note HPI: Patient addressing Alcohol, Cocaine Dependence comorbid with Nicotine Dependence andc Paranoid Schizophrenia ROS: HTN, Hep C were medically managed Current Medications: Active Medications Generic Name Dose Route Start Last Admin Trade Name Freq PRN Reason Stop Dose Admin Acetaminophen 650 mg 05/15/17 17:17 Tylenol - PO Q4H PRN PAIN Al Hydroxide/Mg Hydroxide 30 ml 05/15/17 17:17 Mylanta Oral Suspension - PO Q6H PRN DYSPEPSIA Citalopram Hydrobromide 20 mg 05/16/17 14:06 05/30/17 09:45 Celexa - PO 20 mg DAILY FAUZIA Administration Diphenhydramine HCl 50 mg 05/15/17 17:17 05/29/17 21:14 Benadryl - PO 50 mg HSMR1 PRN Administration INSOMNIA Eucalyptus/Menthol/Phenol/Sorbitol 1 each 05/15/17 17:17 Cepastat Lozenge - MM Q4H PRN SORE THROAT Guaifenesin 10 ml 05/15/17 17:17 Robitussin Dm - PO Q6H PRN COUGH Hydroxyzine Pamoate 50 mg 05/15/17 17:17 Vistaril - PO Q4H PRN AGITATION Ibuprofen 400 mg 05/15/17 17:17 Motrin - PO Q6H PRN SEVERE PAIN Loperamide HCl 4 mg 05/15/17 17:17 Imodium - PO Q6H PRN DIARRHEA Magnesium Citrate 300 ml 05/15/17 17:17 Citroma - PO Q48H PRN CONSTIPATION Magnesium Hydroxide 30 ml 05/15/17 17:17 Milk Of Magnesia - PO DAILY PRN CONSTIPATION Nicotine 21 mg 05/16/17 10:00 05/30/17 09:45 Nicoderm Patch - TD 21 mg DAILY FAUZIA Administration Nicotine Polacrilex 4 mg 05/15/17 17:17 Nicorette Gum - BC Q2H PRN NICOTINE REPLACEMENT RX Olanzapine 20 mg 05/16/17 22:00 05/29/17 21:14 Zyprexa - PO 20 mg HS FAUZIA Administration Multivit/Folic Acid/Iron 1 tab 05/16/17 10:00 05/30/17 09:45 Vitamins (Sjr) - PO 1 tab DAILY FAUZIA Administration Pseudoephedrine/Triprolidine 1 combo 05/15/17 17:17 Actifed - PO TID PRN NASAL CONGESTION Thiamine HCl 100 mg 05/15/17 22:00 05/29/17 21:14 Vitamin B1 - PO 100 mg HS FAUZIA Administration Current Side Effect: No Lab tests ordered: Yes Lab tests reviewed: Yes Provider note:: Patient has completed this program today. He has met his treatment goals and will continue to address his issues in outpatient treatment at the [facility]. 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 He responded well to Zyprexa 20 mg po HS and Celexa 20 mg po daily. Scripts for these medications are electronically transmitted to [email or web address] at [address] [place] [address]. He is stable for discharge today Total face to face time:: 35 Mental Status Exam - Mental Status Exam Alert and Oriented to: Time, Place Cognitive Function: Fair Patient Appearance: Well Groomed Mood: Hopeful, Euthymic Affect: Appropriate Patient Behavior: Cooperative Speech Pattern: Clear Voice Loudness: Normal Thought Process: Intact, Goal Oriented Thought Disorder: Not Present Hallucinations: Denies Suicidal Ideation: Denies Homicidal Ideation: Denies Insight/Judgement: Fair Sleep: Fair Appetite: Good Muscle strength/Tone: Normal Gait/Station: Normal Psychiatric Treatment Plan - Problem List (1) Alcohol dependence Current Visit: Yes (2) Cocaine dependence Current Visit: Yes (3) Nicotine dependence Current Visit: Yes Qualifiers: Nicotine product type: cigarettes Substance use status: in withdrawal Qualified Code(s): F17.213 - Nicotine dependence, cigarettes, with withdrawal; F17.213 - Nicotine dependence, cigarettes, with withdrawal (4) Paranoid schizophrenia Current Visit: Yes (5) Hepatitis C Current Visit: Yes Qualifiers: Viral hepatitis chronicity: chronic Hepatic coma status: without hepatic coma Qualified Code(s): B18.2 - Chronic viral hepatitis C; B18.2 - Chronic viral hepatitis C; B18.2 - Chronic viral hepatitis C; B18.2 - Chronic viral hepatitis C (6) H/O abdominal surgery Current Visit: No (7) Hypertension Current Visit: No Qualifiers: Hypertension type: essential hypertension Qualified Code(s): I10 - Essential (primary) hypertension; I10 - Essential (primary) hypertension; I10 - Essential (primary) hypertension Initial treatment plan: Patient is discharged today and referred to [facility] for outpatient treatment
[2017-05-30] MEDS ORDERED: PT OWN MED DRAWER 7, Y5N ONE (13:23)
== END 2017-05-30 13:45 | disposition home or self-care (01) | DRG 772 ==
LOC: YASAS 11:34 → Y3W 16:56
PROVIDERS: ADMIT Psychiatry & Neurology Psychiatry; ATTEND Psychiatry & Neurology Psychiatry
PROC: HZ42ZZZ Group Counseling for Substance Abuse Treatment, Cognitive-Behavioral (ICD-10-PCS; principal; 2017-05-15)
DX: F10.20 Alcohol dependence, uncomplicated (principal); F14.20 Cocaine dependence, uncomplicated; F17.213 Nicotine dependence, cigarettes, with withdrawal; F20.0 Paranoid schizophrenia; I10 Essential (primary) hypertension; B18.2 Chronic viral hepatitis C; R00.0 Tachycardia, unspecified; Z98.890 Other specified postprocedural states; Z88.8 Allergy status to other drugs, medicaments and biological substances; Z87.898 Personal history of other specified conditions
CPT/HCPCS: 36415; 80053; 81003; 81015; 85027; 86593; 93005; 93010

== ENCOUNTER 2017-07-29 11:10 | Inpatient (IN) | payer OTHER ==
[2017-07-29 11:31] VITALS: BMI 23.1
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
[2017-07-29] MEDS ORDERED: MAGNESIUM HYDROX 2400MG/30ML ORAL SUSPENSION 30 ML CUP PO PRN (13:44)
[2017-07-29] MEDS ORDERED: chlordiazePOXIDE HCL 25 MG CAPSULE PO PRN (13:44)
[2017-07-29] MEDS ORDERED: LOPERAMIDE HCL 2 MG CAPSULE PO PRN (13:44)
[2017-07-29] MEDS ORDERED: P-EPHED 60MG/TRIPROLIDI 2.5MG TABLET PO PRN (13:44)
[2017-07-29] MEDS ORDERED: MAG HYDROX/AL HYDROX/SIMETH 30 ML UNIT-DOSE CUP PO PRN (13:44)
[2017-07-29] MEDS ORDERED: ACETAMINOPHEN 325 MG TABLET (FP) PO PRN (13:44)
[2017-07-29] MEDS ORDERED: MENTHOL/PHENOL 1 EACH UD MM PRN (13:44)
[2017-07-29] MEDS ORDERED: guaiFENesin/D-METHORPHAN HB 10 ML UNIT-DOSE CUPS PO PRN (13:44)
[2017-07-29] MEDS ORDERED: MAGNESIUM CITRATE 300 ML BOTTLE PO PRN (13:44)
[2017-07-29] MEDS: amLODIPine BESYLATE 5 MG TABLET (FP) PO SCH (15:20)
[2017-07-29] MEDS: PANTOPRAZOLE 40 MG TABLET (FP) PO SCH (15:20)
--- NOTE | 2017-07-29 16:46 | CONSULT ---
[facility] Psychiatric Consult - Data Date of interview: 07/29/17 Admission source: [facility] Identifying data: Another admission to [facility] for this 61 y/o AA male seeking detox treatment on for alcohol and cocaine dependence.Patient is ,a father of six,currently homeless,unemployed and supported on SSI benefits. Substance Abuse History: Smoking history: Current every day smoker. Have you smoked in the past 12 months: Yes. Aproximately how many cigarettes per day: 40. Cigars Per Day: 0. Hx Chewing Tobacco Use: No. Initiated information on smoking cessation: Yes. 'Breaking Loose' booklet given: 07/29/17. - Substance & Tx. History. Hx Alcohol Use: Yes. Hx Substance Use: Yes. Substance Use Type : Alcohol, Cocaine, Prescribed, Tranquilizers. Hx Substance Use Treatment: Yes ([facility] rehab this year). - Substances Abused. Alcohol. Route : Oral. Frequency: Daily. Amount used: 1 PINT VODKA/ 4-5 BEERS. Age of first use: 21. Date of Last Use: 07/28/17. Crack. Route: Smoking. Frequency: Daily. Confirmed by patient in this session.See current [facility] report for details : Amount used: $20-30. Age of first use: 33. Date of Last Use: 07/28/17 Medical History: History of surgery for perforated peptic ulcer,hepatitis C and hypertension. Psychiatric History: history of multiple psychiatric hospitalizations.Diagnosed with Paranoid Schizophrenia (onset at age 21).Mr Saini gets his OPD psychiatric services at the [facility] mental health clinic in [facility]. Prescribed olanzapine 10 mg/hs and celexa 20 mg/day.Non-adherent to OPD care + medications for " more than three months " as per self- report.History of past admissions to [facility] and [facility].No reported history of suicide attempts. Physical/Sexual Abuse/Trauma History: Patient denies. Additional Comment: Urine Drug Screen Results: PAOLO-Cocaine, BZO- Benzodiazepines.Noted. Mental Status Exam - Mental Status Exam Alert and Oriented to: Time, Place, Person Cognitive Function: Good Patient Appearance: Well Groomed Mood: Hopeful, Euthymic Affect: Appropriate, Normal Range Patient Behavior: Fatigued, Appropriate, Cooperative Speech Pattern: Clear, Appropriate Voice Loudness: Normal Thought Process: Goal Oriented Thought Disorder: Not Present Hallucinations: Denies Suicidal Ideation: Denies Homicidal Ideation: Denies Insight/Judgement: Poor Sleep: Poorly, Difficulty falling asleep Appetite: Good Muscle strength/Tone: Normal Gait/Station: Normal Psychiatric Findings - Problem List ([place] 1, 2,3) (1) Alcohol dependence with uncomplicated withdrawal Current Visit: Yes Status: Acute (2) Cocaine dependence Current Visit: Yes Status: Acute (3) Nicotine dependence Current Visit: Yes Status: Acute Qualifiers: Nicotine product type: cigarettes Substance use status: in withdrawal Qualified Code(s): F17.213 - Nicotine dependence, cigarettes, with withdrawal (4) Paranoid schizophrenia Current Visit: Yes Status: Chronic (5) Insomnia Current Visit: Yes Status: Acute Qualifiers: Insomnia type: unspecified Qualified Code(s): G47.00 - Insomnia, unspecified - Initial Treatment Plan Initial Treatment Plan: Psychoeducation.Detoxification.Medications : zyprexa 10 mg po hs + celexa 10 mg po daily at patient's request.Doses are reduced in view of non-compliance since discharge from [address] (May 2017).Side effects/benefits discussed with the patient.He is in agreement with this careplan.Observation.
[2017-07-29] MEDS: chlordiazePOXIDE HCL 25 MG CAPSULE PO SCH ×2 (16:58→22:25)
[2017-07-29 20:28] LABS: URINE APPEARANCE CLEAR; URINE BILIRUBIN NEGATIVE (NEGATIVE); URINE BLOOD NEGATIVE (NEGATIVE); URINE COLOR DKYELLOW; URINE GLUCOSE (UA) NEGATIVE (NEGATIVE); URINE KETONE NEGATIVE (NEGATIVE); URINE NITRITE NEGATIVE (NEGATIVE); URINE PROTEIN NEGATIVE (NEGATIVE); URINE UROBILINOGEN 4.0 E.U/dl mg/dL (0.2-1.0)
[2017-07-29 22:01] LABS: URINE LEUK ESTERASE Negative (NEGATIVE)
[2017-07-29] MEDS: THIAMINE HCL 100 MG TABLET (FP) PO SCH (22:25)
[2017-07-29] MEDS: OLANZapine 10 MG TABLET PO SCH (22:25)
[2017-07-30] MEDS: chlordiazePOXIDE HCL 25 MG CAPSULE PO SCH ×4 (05:23→22:19)
[2017-07-30 10:02] LABS: MCH 24.6 pg (25.7-33.7); MCHC 30.6 g/dl (32.0-35.9); MEAN CELL VOLUME 80.3 fl (80-96); MEAN PLT VOLUME 10.4 fl (7.5-11.1); PLATELET COUNT 143 K/MM3 (134-434); WHITE BLOOD COUNT 3.8 K/mm3 (4.0-10.0)
[2017-07-30] MEDS: PRENATAL VITAMINS W/ FOLIC ACID TABLET (FP) PO SCH (10:11)
[2017-07-30] MEDS: amLODIPine BESYLATE 5 MG TABLET (FP) PO SCH (10:11)
[2017-07-30] MEDS: CITALOPRAM HYDROBROMIDE 10 MG TABLET (FP) PO SCH (10:11)
[2017-07-30] MEDS: PANTOPRAZOLE 40 MG TABLET (FP) PO SCH (10:11)
[2017-07-30 10:37] LABS: ALBUMIN 3.3 g/dl (3.4-5.0); ALK PHOS 106 U/L (45-117); ANION GAP 4 (8-16); BILIRUBIN,TOTAL 0.8 mg/dL (0.2-1.0); CALCIUM 8.8 mg/dL (8.5-10.1); CO2 32 mmol/L (21-32); CREATININE 1.1 mg/dL (0.7-1.3); GLUCOSE,RANDOM 68 mg/dL (74-106); SGOT/AST 113 U/L (15-37); SGPT/ALT 161 U/L (12-78); TOT PROT 8.5 g/dl (6.4-8.2)
--- NOTE | 2017-07-30 14:56 | PN ---
[facility] CIWA - CIWA Score Nausea/Vomitin-No Nausea/No Vomiting Muscle Tremors: 4-Moderate,w/Arms Extend Anxiety: 3 Agitation: 3 Paroxysmal Sweats: 3 Orientation: 0-Oriented Tacttile Disturbances: 3-Moderate Itch/Numb/Burn Auditory Disturbances: 2-Mild Harshness/Frighten Visual Disturbances: 0-None Headache: 0-None Present CIWA-Ar Total Score: 18 BHS Progress Note (SOAP) Subjective: Sweating, Anxious, Tremors. Objective: PT. A & O X 3, OBSERVED AMBULATING ON UNIT. NO ACUTE DISTRESS. 07/30/17 14:53 Vital Signs Temperature 96.8 F L 07/30/17 13:37 Pulse Rate 77 07/30/17 13:37 Respiratory Rate 18 07/30/17 13:37 Blood Pressure 115/85 07/30/17 13:37 O2 Sat by Pulse Oximetry (%) Laboratory Tests 07/29/17 07/30/17 07/30/17 19:40 06:00 06:00 WBC 3.8 L D RBC 5.52 Hgb 13.6 Hct 44.3 MCV 80.3 MCH 24.6 L MCHC 30.6 L RDW 15.0 Plt Count 143 MPV 10.4 Sodium 139 Potassium 4.5 Chloride 103 Carbon Dioxide 32 Anion Gap 4 L BUN 19 H D Creatinine 1.1 Creat Clearance w eGFR > 60 Random Glucose 68 L D Calcium 8.8 Total Bilirubin 0.8 AST 113 H D ALT 161 H D Alkaline Phosphatase 106 D Total Protein 8.5 H Albumin 3.3 L D Urine Color Dkyellow Urine Appearance Clear Urine pH 5.0 Ur Specific [place] 1.024 Urine Protein Negative Urine Glucose (UA) Negative Urine Ketones Negative Urine Blood Negative Urine Nitrite Negative Urine Bilirubin Negative Urine Urobilinogen 4.0 e.u/dl Ur Leukocyte Esterase Negative RPR Titer 07/30/17 06:00 WBC RBC Hgb Hct MCV MCH MCHC RDW Plt Count MPV Sodium Potassium Chloride Carbon Dioxide Anion Gap BUN Creatinine Creat Clearance w eGFR Random Glucose Calcium Total Bilirubin AST ALT Alkaline Phosphatase Total Protein Albumin Urine Color Urine Appearance Urine pH Ur Specific [place] Urine Protein Urine Glucose (UA) Urine Ketones Urine Blood Urine Nitrite Urine Bilirubin Urine Urobilinogen Ur Leukocyte Esterase RPR Titer Nonreactive LABS NOTED. Assessment: 07/30/17 14:54 WITHDRAWAL SYMPTOMS. Plan: CONTINUE DETOX. INCREASE DAILY PO FLUID INTAKE. REPEAT AST, ALT ON 08/01/2017 FOR ELEVATED ADMISSION LEVELS.
[2017-07-30] MEDS: THIAMINE HCL 100 MG TABLET (FP) PO SCH (22:19)
[2017-07-30] MEDS: OLANZapine 10 MG TABLET PO SCH (22:19)
[2017-07-31] MEDS: chlordiazePOXIDE HCL 25 MG CAPSULE PO SCH ×2 (05:28→10:09)
--- NOTE | 2017-07-31 08:02 | EKG ---
Test Reason : Blood Pressure : / mmHG Vent. Rate : 066 BPM Atrial Rate : 066 BPM P-R Int : 118 ms QRS Dur : 100 ms QT Int : 424 ms P-R-T Axes : 038 062 063 degrees QTc Int : 444 ms NORMAL SINUS RHYTHM MINIMAL VOLTAGE CRITERIA FOR LVH, MAY BE NORMAL VARIANT BORDERLINE ECG WHEN COMPARED WITH ECG OF 15-MAY-2017 21:26, NO SIGNIFICANT CHANGE WAS FOUND Confirmed by MD Martinez Daniel ([id number]) on 07/30/2017 3:05:03 PM Also confirmed by MD Martinez Daniel ([id number]), editor in chief DANNY MURRAY ([id number]) on 07/31/2017 8:02:13 AM Referred By: Confirmed By:Danny Martinez MD
[2017-07-31] MEDS: PANTOPRAZOLE 40 MG TABLET (FP) PO SCH (10:09)
[2017-07-31] MEDS: PRENATAL VITAMINS W/ FOLIC ACID TABLET (FP) PO SCH (10:09)
[2017-07-31] MEDS: amLODIPine BESYLATE 5 MG TABLET (FP) PO SCH (10:09)
[2017-07-31] MEDS: CITALOPRAM HYDROBROMIDE 10 MG TABLET (FP) PO SCH (10:09)
--- NOTE | 2017-07-31 11:47 | PN ---
[facility] CIWA - CIWA Score Nausea/Vomitin-No Nausea/No Vomiting Muscle Tremors: 2 Anxiety: 4-Mod. Anxious/Guarded Agitation: 3 Paroxysmal Sweats: 3 Orientation: 0-Oriented Tacttile Disturbances: 0-None Auditory Disturbances: 0-None Visual Disturbances: 0-None Headache: 4-Moderately Severe CIWA-Ar Total Score: 16 S Progress Note (SOAP) Subjective: Body Aches, H/A, Tremors, Sweating. Objective: PT. A & O X 3, OBSERVED AMBULATING ON UNIT. NO ACUTE DISTRESS. 07/31/17 11:44 Vital Signs Temperature 96.1 F L 07/31/17 08:58 Pulse Rate 98 H 07/31/17 08:58 Respiratory Rate 18 07/31/17 08:58 Blood Pressure 119/78 07/31/17 08:58 O2 Sat by Pulse Oximetry (%) Laboratory Tests 07/29/17 07/30/17 07/30/17 19:40 06:00 06:00 WBC 3.8 L D RBC 5.52 Hgb 13.6 Hct 44.3 MCV 80.3 MCH 24.6 L MCHC 30.6 L RDW 15.0 Plt Count 143 MPV 10.4 Sodium 139 Potassium 4.5 Chloride 103 Carbon Dioxide 32 Anion Gap 4 L BUN 19 H D Creatinine 1.1 Creat Clearance w eGFR > 60 Random Glucose 68 L D Calcium 8.8 Total Bilirubin 0.8 AST 113 H D ALT 161 H D Alkaline Phosphatase 106 D Total Protein 8.5 H Albumin 3.3 L D Urine Color Dkyellow Urine Appearance Clear Urine pH 5.0 Ur Specific [place] 1.024 Urine Protein Negative Urine Glucose (UA) Negative Urine Ketones Negative Urine Blood Negative Urine Nitrite Negative Urine Bilirubin Negative Urine Urobilinogen 4.0 e.u/dl Ur Leukocyte Esterase Negative RPR Titer 07/30/17 06:00 WBC RBC Hgb Hct MCV MCH MCHC RDW Plt Count MPV Sodium Potassium Chloride Carbon Dioxide Anion Gap BUN Creatinine Creat Clearance w eGFR Random Glucose Calcium Total Bilirubin AST ALT Alkaline Phosphatase Total Protein Albumin Urine Color Urine Appearance Urine pH Ur Specific [place] Urine Protein Urine Glucose (UA) Urine Ketones Urine Blood Urine Nitrite Urine Bilirubin Urine Urobilinogen Ur Leukocyte Esterase RPR Titer Nonreactive LABS NOTED. Assessment: 07/31/17 11:45 WITHDRAWAL SYMPTOMS. Plan: CONTINUE DETOX. INCREASE DAILY PO FLUID INTAKE.
[2017-07-31] MEDS: NICOTINE 21 MG/24 HOURS TOPICAL PATCH TD SCH (11:57)
[2017-07-31] MEDS: chlordiazePOXIDE 5 MG CAPSULE PO SCH ×2 (17:29→22:16)
[2017-07-31] MEDS: THIAMINE HCL 100 MG TABLET (FP) PO SCH (22:16)
[2017-07-31] MEDS: OLANZapine 10 MG TABLET PO SCH (22:16)
[2017-08-01] MEDS: chlordiazePOXIDE 5 MG CAPSULE PO SCH ×2 (05:48→10:13)
[2017-08-01] MEDS: CITALOPRAM HYDROBROMIDE 10 MG TABLET (FP) PO SCH (10:13)
[2017-08-01] MEDS: NICOTINE 21 MG/24 HOURS TOPICAL PATCH TD SCH (10:13)
[2017-08-01] MEDS: PANTOPRAZOLE 40 MG TABLET (FP) PO SCH (10:13)
[2017-08-01] MEDS: PRENATAL VITAMINS W/ FOLIC ACID TABLET (FP) PO SCH (10:13)
[2017-08-01] MEDS: amLODIPine BESYLATE 5 MG TABLET (FP) PO SCH (10:13)
[2017-08-01 10:17] LABS: SGOT/AST 81 U/L (15-37); SGPT/ALT 132 U/L (12-78)
[2017-08-01] MEDS: chlordiazePOXIDE HCL 10 MG CAPSULE PO SCH ×2 (17:19→22:33)
--- NOTE | 2017-08-01 19:02 | PN ---
BHS Progress Note (SOAP) Subjective: Sweating, Tremors. Objective: PT. A & O X 3, OBSERVED AMBULATING ON UNIT. NO ACUTE DISTRESS. 08/01/17 19:02 Vital Signs Temperature 97.6 F 08/01/17 17:48 Pulse Rate 80 08/01/17 17:48 Respiratory Rate 18 08/01/17 17:48 Blood Pressure 112/77 08/01/17 17:48 O2 Sat by Pulse Oximetry (%) Laboratory Tests 07/29/17 07/30/17 07/30/17 19:40 06:00 06:00 WBC 3.8 L D RBC 5.52 Hgb 13.6 Hct 44.3 MCV 80.3 MCH 24.6 L MCHC 30.6 L RDW 15.0 Plt Count 143 MPV 10.4 Sodium 139 Potassium 4.5 Chloride 103 Carbon Dioxide 32 Anion Gap 4 L BUN 19 H D Creatinine 1.1 Creat Clearance w eGFR > 60 Random Glucose 68 L D Calcium 8.8 Total Bilirubin 0.8 AST 113 H D ALT 161 H D Alkaline Phosphatase 106 D Total Protein 8.5 H Albumin 3.3 L D Urine Color Dkyellow Urine Appearance Clear Urine pH 5.0 Ur Specific [place] 1.024 Urine Protein Negative Urine Glucose (UA) Negative Urine Ketones Negative Urine Blood Negative Urine Nitrite Negative Urine Bilirubin Negative Urine Urobilinogen 4.0 e.u/dl Ur Leukocyte Esterase Negative RPR Titer 07/30/17 08/01/17 06:00 07:00 WBC RBC Hgb Hct MCV MCH MCHC RDW Plt Count MPV Sodium Potassium Chloride Carbon Dioxide Anion Gap BUN Creatinine Creat Clearance w eGFR Random Glucose Calcium Total Bilirubin AST 81 H D ALT 132 H Alkaline Phosphatase Total Protein Albumin Urine Color Urine Appearance Urine pH Ur Specific [place] Urine Protein Urine Glucose (UA) Urine Ketones Urine Blood Urine Nitrite Urine Bilirubin Urine Urobilinogen Ur Leukocyte Esterase RPR Titer Nonreactive LABS NOTED. RESULTS OF REPEAT AST, ALT NOTED. 08/01/17 19:03 Assessment: 08/01/17 19:03 WITHDRAWAL SYMPTOMS. Plan: CONTINUE DETOX.
[2017-08-01] MEDS: OLANZapine 10 MG TABLET PO SCH (22:33)
[2017-08-01] MEDS: THIAMINE HCL 100 MG TABLET (FP) PO SCH (22:33)
[2017-08-02] MEDS: chlordiazePOXIDE HCL 10 MG CAPSULE PO SCH ×2 (05:08→10:10)
[2017-08-02 09:29] VITALS: BP 125/82; PULSE 88; TEMP 98
[2017-08-02] MEDS: PANTOPRAZOLE 40 MG TABLET (FP) PO SCH (10:10)
[2017-08-02] MEDS: CITALOPRAM HYDROBROMIDE 10 MG TABLET (FP) PO SCH (10:10)
[2017-08-02] MEDS: PRENATAL VITAMINS W/ FOLIC ACID TABLET (FP) PO SCH (10:10)
[2017-08-02] MEDS: amLODIPine BESYLATE 5 MG TABLET (FP) PO SCH (10:10)
[2017-08-02] MEDS: NICOTINE 21 MG/24 HOURS TOPICAL PATCH TD SCH (10:12)
--- NOTE | 2017-08-02 21:32 | DS ---
[facility] Detox Discharge Summary Admission Date: 07/29/17 Discharge Date: 08/02/17 - History Present History: Alcohol Dependence, Cocaine Dependence Additional Comments: PATIENT GOING TO [facility] ([place], [place] FOR AFTERCARE. PATIENT WAS DISCHARGED FROM DETOX UNIT IN STABLE MEDICAL CONDITION. Pertinent Past History: GERD, Schizophrenia, Hep C, History of Abdominal Surgery, HTN, Insomnia, Nicotine Dependence. - Physical Exam Results Vital Signs: Vital Signs Temperature 98.0 F 08/02/17 09:28 Pulse Rate 88 08/02/17 09:28 Respiratory Rate 18 08/02/17 09:28 Blood Pressure 125/82 08/02/17 09:28 O2 Sat by Pulse Oximetry (%) Pertinent Admission Physical Exam Findings: WITHDRAWAL SYMPTOMS. Laboratory Tests 07/29/17 07/30/17 07/30/17 19:40 06:00 06:00 WBC 3.8 L D RBC 5.52 Hgb 13.6 Hct 44.3 MCV 80.3 MCH 24.6 L MCHC 30.6 L RDW 15.0 Plt Count 143 MPV 10.4 Sodium 139 Potassium 4.5 Chloride 103 Carbon Dioxide 32 Anion Gap 4 L BUN 19 H D Creatinine 1.1 Creat Clearance w eGFR > 60 Random Glucose 68 L D Calcium 8.8 Total Bilirubin 0.8 AST 113 H D ALT 161 H D Alkaline Phosphatase 106 D Total Protein 8.5 H Albumin 3.3 L D Urine Color Dkyellow Urine Appearance Clear Urine pH 5.0 Ur Specific [place] 1.024 Urine Protein Negative Urine Glucose (UA) Negative Urine Ketones Negative Urine Blood Negative Urine Nitrite Negative Urine Bilirubin Negative Urine Urobilinogen 4.0 e.u/dl Ur Leukocyte Esterase Negative RPR Titer 07/30/17 08/01/17 06:00 07:00 WBC RBC Hgb Hct MCV MCH MCHC RDW Plt Count MPV Sodium Potassium Chloride Carbon Dioxide Anion Gap BUN Creatinine Creat Clearance w eGFR Random Glucose Calcium Total Bilirubin AST 81 H D ALT 132 H Alkaline Phosphatase Total Protein Albumin Urine Color Urine Appearance Urine pH Ur Specific [place] Urine Protein Urine Glucose (UA) Urine Ketones Urine Blood Urine Nitrite Urine Bilirubin Urine Urobilinogen Ur Leukocyte Esterase RPR Titer Nonreactive LABS NOTED. - Treatment Hospital Course: Detox Protocol Followed, Detoxed Safely, Responded well, Discharged Condition Good, Rehab Referral Accepted Patient has Accepted a Rehab Referral to: [facility] ([place], [place] - Medication Discharge Medications: Ambulatory Orders Olanzapine [Zyprexa] 20 mg PO HS 02/21/16 Citalopram Hydrobromide [Celexa -] 20 mg PO DAILY #30 tablet 05/30/17 Amlodipine Besylate [Norvasc -] 5 mg PO DAILY 07/29/17 Citalopram Hydrobromide [Celexa -] 10 mg PO DAILY #30 tablet 07/29/17 Olanzapine [Zyprexa] 10 mg PO HS #30 tablet 07/29/17 - Diagnosis (1) Alcohol dependence with uncomplicated withdrawal Status: Acute (2) GERD (gastroesophageal reflux disease) Status: Acute (3) Insomnia Status: Acute Qualifiers: Insomnia type: unspecified Qualified Code(s): G47.00 - Insomnia, unspecified (4) Nicotine dependence Status: Acute Qualifiers: Nicotine product type: cigarettes Substance use status: in withdrawal Qualified Code(s): F17.213 - Nicotine dependence, cigarettes, with withdrawal (5) Cocaine dependence, uncomplicated Status: Chronic (6) H/O abdominal surgery Status: Chronic (7) Hepatitis C Status: Chronic Qualifiers: Viral hepatitis chronicity: chronic Hepatic coma status: without hepatic coma Qualified Code(s): B18.2 - Chronic viral hepatitis C (8) Hypertension Status: Chronic Qualifiers: Hypertension type: essential hypertension Qualified Code(s): I10 - Essential (primary) hypertension (9) Paranoid schizophrenia Status: Chronic - AMA Did Patient Leave Against Medical Advice: No
== END 2017-08-02 11:40 | disposition home or self-care (01) | DRG 774 ==
LOC: YASAS 11:10 → Y3N 13:16
PROVIDERS: ADMIT Internal Medicine; ATTEND Internal Medicine
PROC: HZ2ZZZZ Detoxification Services for Substance Abuse Treatment (ICD-10-PCS; principal; 2017-07-29)
DX: F10.230 Alcohol dependence with withdrawal, uncomplicated (principal); F14.20 Cocaine dependence, uncomplicated; F17.213 Nicotine dependence, cigarettes, with withdrawal; F20.0 Paranoid schizophrenia; G47.00 Insomnia, unspecified; I10 Essential (primary) hypertension; K21.9 Gastro-esophageal reflux disease without esophagitis; B18.2 Chronic viral hepatitis C; R63.4 Abnormal weight loss; Z68.23 Body mass index [BMI] 23.0-23.9, adult
CPT/HCPCS: 36415; 80053; 81003; 84450; 84460; 85027; 86593; 93005; 93010

== ENCOUNTER 2017-09-12 10:03 | Inpatient (IN) | payer OTHER ==
[2017-09-12 11:22] VITALS: BMI 24.6
--- NOTE | 2017-09-12 12:14 | HP ---
CIWA Score - CIWA Score Nausea/Vomitin (diarrhea) Muscle Tremors: 4-Moderate,w/Arms Extend Anxiety: 4-Mod. Anxious/Guarded Agitation: 4-Moderately Restless Paroxysmal Sweats: No Perspiration Orientation: 0-Oriented Tacttile Disturbances: 3-Moderate Itch/Numb/Burn Auditory Disturbances: 0-None Visual Disturbances: 0-None Headache: 0-None Present CIWA-Ar Total Score: 18 Admission ROS S - HPI Chief Complaint: WITHDRAWAL SX FROM ALCOHOL. Allergies/Adverse Reactions: Allergies Allergy/AdvReac Type Severity Reaction Status Date / Time haloperidol [From Haldol] AdvReac Severe stiffness Verified 09/12/17 11:37 haloperidol lactate AdvReac Severe stiffness Verified 09/12/17 11:37 [From Haldol] risperidone [From Risperdal] AdvReac Severe stiffness Verified 09/12/17 11:37 History of Present Illness: 61 Y/O AA/MALE WITH A HX OF ALCOHOL AND COCAINE DEPENDENCE SEEKING DETOX [place]. Exam Limitations: No Limitations - Ebola screening Have you traveled outside of the country in the last 21 days: No Have you had contact with anyone from an Ebola affected area: No Have you been sick,other than usual withdrawal symptoms: No - Review of Systems Constitutional: Chills, Loss of Appetite, Night Sweats, Changes in sleep, Unintentional Wgt. Loss EENT: reports: Cataracts (BOTH EYES), Blurred Vision (GLAUCOMA BOTH EYES), Tearing, Nose Congestion, Dental Problems (NO TEETH) Respiratory: reports: No Symptoms reported Cardiac: reports: Lightheadedness GI: reports: Diarrhea, Nausea, Poor Appetite, Poor Fluid Intake, Vomiting : reports: Frequency Musculoskeletal: reports: Joint Pain (LEFT KNEE PAIN), Muscle Pain Integumentary: reports: Other (OLD HEALED SCARS ON LOWER LEGS) Neuro: reports: Headache, Tremors, Unsteady Gait, Dizziness Endocrine: reports: No Symptoms Reported Hematology: reports: No Symptoms Reported Psychiatric: reports: Orientated x3, Anxious, Depressed Other Systems: Reviewed and Negative Patient History - Patient Medical History Hx Anemia: No Hx Asthma: No Hx Chronic Obstructive Pulmonary Disease (COPD): No Hx Cancer: No Hx Cardiac Disorders: No Hx Congestive Heart Failure: No Hx Hypertension: Yes (ON NORVASC) Hx Hypercholesterolemia: No Hx Pacemaker: No HX Cerebrovascular Accident: No Hx Seizures: No Hx Dementia: No Hx Diabetes: No Hx Gastrointestinal Disorders: No Hx Liver Disease: No Hx Genitourinary Disorders: No Hx Sexually Transmitted Disorders: No (DENIES) Hx Renal Disease (ESRD): No Hx Thyroid Disease: No Hx Human Immunodeficiency Virus (HIV): No (NEGATIVE HX;last 2014) Hx Hepatitis C: Yes (NO TREATMENT) Hx Depression: Yes Hx Suicide Attempt: No (DENIES) Hx Bipolar Disorder: No Hx Schizophrenia: Yes Other Medical History: HX INSOMNIA - Patient Surgical History Past Surgical History: Yes Hx Neurologic Surgery: No Hx Cataract Extraction: No Hx Cardiac Surgery: No Hx Lung Surgery: No Hx Breast Surgery: No Hx Breast Biopsy: No Hx Abdominal Surgery: Yes (abdomen perforated peptic ulcer in 1991) Hx Appendectomy: No Hx Cholecystectomy: No Hx Genitourinary Surgery: No Hx Orthopedic Surgery: No Hx Hysterectomy: No Anesthesia Reaction: No - PPD History Previous Implant?: Yes Documented Results: Negative w/proof Implanted On Prior [facility] Admission?: Yes Date: 04/18/17 Results: 0 mm PPD to be Administered?: No - Reproductive History Patient is a Female of Child Bearing Age (11 -55 yrs old): No (MALE) - Smoking Cessation Smoking history: Current every day smoker Have you smoked in the past 12 months: Yes Aproximately how many cigarettes per day: 20 Cigars Per Day: 0 Hx Chewing Tobacco Use: No Initiated information on smoking cessation: Yes 'Breaking Loose' booklet given: 09/12/17 - Substance & Tx. History Hx Alcohol Use: Yes (VODKA) Hx Substance Use: Yes (COCAINE) Substance Use Type: Alcohol, Cocaine Hx Substance Use Treatment: Yes (LAST TX AT [facility] DETOX) - Substances Abused Alcohol Route: Oral Frequency: Daily Amount used: vodka(1 pint) Age of first use: 24 Date of Last Use: 09/11/17 Crack Route: Smoking Frequency: Daily Amount used: $30 Age of first use: 33 Date of Last Use: 09/11/17 Family Disease History - Family Disease History Family Disease History: CA: Father (), Mother (), Other: Father , Mother Admission Physical Exam BHS - Vital Signs Vital Signs: Vital Signs - 24 hr 09/12/17 11:21 Temperature 96.4 F L Pulse Rate 95 H Respiratory 20 Rate Blood Pressure 148/83 - Physical General Appearance: Yes: Moderate Distress, Irritable, Anxious HEENTM: Yes: EOMI, Normocephalic, TESFAYE, Pharynx Normal, Nasal Congestion, Rhinorrhea Respiratory: Yes: Chest Non-Tender, Lungs Clear, Normal Breath Sounds, No Respiratory Distress Neck: Yes: No masses,lesions,Nodules, Supple, Trachea in good position Breast: Yes: Breast Exam Deferred Cardiology: Yes: Regular Rhythm, Regular Rate, S1, S2 Abdominal: Yes: Normal Bowel Sounds, Non Tender, Flat Genitourinary: Yes: Other (N/C) Back: Yes: Within Normal Limits Musculoskeletal: Yes: full range of Motion (BUT GUARDED ON ACTIVE ROM ON FLEXION/EXTENSION OF LEFT KNEE.), Gait Steady Extremities: Yes: Normal Range of Motion, Non-Tender Neurological: Yes: intake specialist II-XII NML intact, Fully Oriented, Alert Integumentary: Yes: Dry, Warm Lymphatic: Yes: Within Normal Limits - Diagnostic (1) Alcohol dependence with uncomplicated withdrawal Current Visit: Yes Status: Acute (2) GERD (gastroesophageal reflux disease) Current Visit: Yes Status: Chronic Qualifiers: Esophagitis presence: esophagitis presence not specified Qualified Code(s) : K21.9 - Gastro-esophageal reflux disease without esophagitis (3) Nicotine dependence Current Visit: Yes Status: Acute Qualifiers: Nicotine product type: cigarettes Substance use status: in withdrawal Qualified Code(s): F17.213 - Nicotine dependence, cigarettes, with withdrawal (4) Weight loss Current Visit: Yes Status: Acute (5) Cocaine dependence, uncomplicated Current Visit: Yes Status: Acute (6) Hepatitis C Current Visit: Yes Status: Chronic Qualifiers: Viral hepatitis chronicity: chronic Hepatic coma status: without hepatic coma Qualified Code(s): B18.2 - Chronic viral hepatitis C (7) Hypertension Current Visit: Yes Status: Chronic Qualifiers: Hypertension type: essential hypertension Qualified Code(s): I10 - Essential (primary) hypertension Cleared for Admission BHS - Detox or Rehab [facility] Level of Care: Medically Managed Detox Regimen/Protocol: Librium [facility] Breath Alcohol Content Breath Alcohol Content: 0.051 Urine Drug Screen - Results Drug Screen Negative: No Urine Drug Screen Results: PAOLO-Cocaine
[2017-09-12] MEDS ORDERED: LOPERAMIDE HCL 2 MG CAPSULE PO PRN (12:24)
[2017-09-12] MEDS ORDERED: MAGNESIUM CITRATE 300 ML BOTTLE PO PRN (12:24)
[2017-09-12] MEDS ORDERED: MAGNESIUM HYDROX 2400MG/30ML ORAL SUSPENSION 30 ML CUP PO PRN (12:24)
[2017-09-12] MEDS ORDERED: ACETAMINOPHEN 325 MG TABLET (FP) PO PRN (12:24)
[2017-09-12] MEDS ORDERED: hydrOXYzine PAMOATE 25 MG CAPSULE (FP) PO PRN (12:24)
[2017-09-12] MEDS ORDERED: chlordiazePOXIDE HCL 25 MG CAPSULE PO PRN (12:24)
[2017-09-12] MEDS ORDERED: MAG HYDROX/AL HYDROX/SIMETH 30 ML UNIT-DOSE CUP PO PRN (12:24)
[2017-09-12] MEDS ORDERED: NICOTINE POLACRILEX 4 MG GUM BUC PRN (12:24)
[2017-09-12] MEDS ORDERED: IBUPROFEN 400 MG TABLET (FP) PO PRN (12:24)
[2017-09-12] MEDS ORDERED: P-EPHED 60MG/TRIPROLIDI 2.5MG TABLET PO PRN (12:24)
[2017-09-12] MEDS ORDERED: chlordiazePOXIDE HCL 25 MG CAPSULE PO ONE (13:00)
[2017-09-12] MEDS: amLODIPine BESYLATE 5 MG TABLET (FP) PO SCH (13:23)
[2017-09-12] MEDS: NICOTINE 21 MG/24 HOURS TOPICAL PATCH TD SCH (13:23)
--- NOTE | 2017-09-12 13:50 | EKG ---
Test Reason : Blood Pressure : / mmHG Vent. Rate : 089 BPM Atrial Rate : 089 BPM P-R Int : 130 ms QRS Dur : 092 ms QT Int : 380 ms P-R-T Axes : 066 050 070 degrees QTc Int : 462 ms NORMAL SINUS RHYTHM NORMAL ECG WHEN COMPARED WITH ECG OF 29-JUL-2017 16:24, NO SIGNIFICANT CHANGE WAS FOUND Confirmed by ALBANIA ORTA MD ([id number]) on 09/12/2017 1:49:36 PM Referred By: Confirmed By:ALBANIA ORTA MD
[2017-09-12 14:12] LABS: HEMATOCRIT 44.3 % (35.4-49); HEMOGLOBIN 13.7 GM/dL (11.7-16.9); MCH 24.1 pg (25.7-33.7); MCHC 30.8 g/dl (32.0-35.9); MEAN CELL VOLUME 78.3 fl (80-96); MEAN PLT VOLUME 9.5 fl (7.5-11.1); PLATELET COUNT 155 K/MM3 (134-434); RBC 5.67 M/mm3 (4.00-5.60); RDW 14.4 % (11.9-15.9); WHITE BLOOD COUNT 5.5 K/mm3 (4.0-10.0)
[2017-09-12 14:43] LABS: ALBUMIN 3.4 g/dl (3.4-5.0); ANION GAP 9 (8-16); BLOOD UREA NITROGEN 19 mg/dL (7-18); CALCIUM 8.4 mg/dL (8.5-10.1); CHLORIDE 103 mmol/L (98-107); CO2 28 mmol/L (21-32); GLUCOSE,RANDOM 156 mg/dL (74-106); POTASSIUM 3.9 mmol/L (3.5-5.1); SGOT/AST 132 U/L (15-37); SGPT/ALT 317 U/L (12-78); SODIUM 140 mmol/L (136-145); TOT PROT 8.6 g/dl (6.4-8.2)
[2017-09-12 14:44] LABS: ALK PHOS 211 U/L (45-117); BILIRUBIN,TOTAL 0.8 mg/dL (0.2-1.0)
--- NOTE | 2017-09-12 15:45 | CONSULT ---
[facility] Psychiatric Consult - Data Date of interview: 09/12/17 Admission source: [facility] Identifying data: Pt. is a 61 year old male, , father of six, and currently unemployed. This is one of multiple admissions for patient. Pt. admitted to detox for alcohol and cocaine dependence. Substance Abuse History: Following information confirmed: - Smoking Cessation. Smoking history: Current every day smoker. Have you smoked in the past 12 months: Yes. Aproximately how many cigarettes per day: 20. Cigars Per Day: 0. Hx Chewing Tobacco Use: No. Initiated information on smoking cessation: Yes. 'Breaking Loose' booklet given: 09/12/17. - Substance & Tx. History. Hx Alcohol Use: Yes (VODKA). Hx Substance Use: Yes (COCAINE). Substance Use Type : Alcohol, Cocaine. Hx Substance Use Treatment: Yes (LAST TX AT [facility]). - Substances Abused. Alcohol. Route: Oral. Frequency: Daily. Amount used : vodka(1 pint). Age of first use: 24. Date of Last Use: 09/11/17. Crack. Route: Smoking. Frequency: Daily. Amount used: $30. Age of first use: 33. Date of Last Use: 09/11/17 Medical History: Hypertension Psychiatric History: Pt. reports 2-3 psychiatric hospitalizations but is unable to recall the dates and names of the hospital (As per Dr. Cuellar note on 2016 patient reorted psychiatric admission to [facility], [facility] and [facility]). States he is currently seeing a psychiatrist at [facility] and is prescribed zyprexa 20mg and celexa 10mg. Reports not taking any medications in over one month. Pt. denies h/o suicide attempt. Physical/Sexual Abuse/Trauma History: Denies. Mental Status Exam - Mental Status Exam Alert and Oriented to: Time, Place, Person Cognitive Function: Fair Patient Appearance: Unkempt Mood: Withdrawn Affect: Flat Patient Behavior: Sedated, Fatigued Speech Pattern: Delayed Voice Loudness: Moderately Soft/Quiet Thought Process: Goal Oriented Thought Disorder: Not Present Hallucinations: Denies Suicidal Ideation: Denies Homicidal Ideation: Denies Insight/Judgement: Poor Sleep: Poorly Appetite: Fair Muscle strength/Tone: Mild Hypertonicity Gait/Station: Other (Did not observe patient's gait.) Psychiatric Findings - Problem List ([place] 1, 2,3) (1) Alcohol dependence with uncomplicated withdrawal Current Visit: Yes Status: Acute (2) Cocaine dependence, uncomplicated Current Visit: Yes Status: Acute (3) Schizophrenia Current Visit: Yes Status: Chronic Qualifiers: Schizophrenia type: unspecified Qualified Code(s): F20.9 - Schizophrenia, unspecified Comment: Self reports. - Initial Treatment Plan Initial Treatment Plan: Psychoeducation provided. Detoxification in progress. Zyprexa 5mg qhs (reduce dosage due to non adherence to medication) + Celexa 10mg po daily. Benefits and side effects discussed. Will continue to monitor patient.
[2017-09-12] MEDS: chlordiazePOXIDE HCL 25 MG CAPSULE PO SCH ×2 (17:35→22:06)
[2017-09-12 20:42] LABS: URINE APPEARANCE CLEAR; URINE BILIRUBIN NEGATIVE (NEGATIVE); URINE BLOOD NEGATIVE (NEGATIVE); URINE COLOR YELLOW; URINE GLUCOSE (UA) NEGATIVE (NEGATIVE); URINE KETONE NEGATIVE (NEGATIVE); URINE LEUK ESTERASE NEGATIVE (NEGATIVE); URINE NITRITE NEGATIVE (NEGATIVE); URINE PROTEIN NEGATIVE (NEGATIVE)
[2017-09-12] MEDS: OLANZapine 5 MG TABLET PO SCH (22:05)
[2017-09-12] MEDS: THIAMINE HCL 100 MG TABLET (FP) PO SCH (22:06)
[2017-09-13] MEDS: chlordiazePOXIDE HCL 25 MG CAPSULE PO SCH ×4 (05:14→22:12)
[2017-09-13] MEDS: amLODIPine BESYLATE 5 MG TABLET (FP) PO SCH (10:14)
[2017-09-13] MEDS: NICOTINE 21 MG/24 HOURS TOPICAL PATCH TD SCH (10:14)
[2017-09-13] MEDS: CITALOPRAM HYDROBROMIDE 10 MG TABLET (FP) PO SCH (10:14)
[2017-09-13] MEDS: PRENATAL VITAMINS W/ FOLIC ACID TABLET (FP) PO SCH (10:14)
[2017-09-13] MEDS: METHYL SALICYLATE/MENTHOL OINT 30 GM TUBE TP SCH ×2 (11:52→22:12)
--- NOTE | 2017-09-13 12:54 | PN ---
[facility] CIWA - CIWA Score Nausea/Vomitin-No Nausea/No Vomiting Muscle Tremors: 2 Anxiety: 4-Mod. Anxious/Guarded Agitation: 3 Paroxysmal Sweats: 3 Orientation: 0-Oriented Tacttile Disturbances: 2-Mild Itch/Numbness/Burn Auditory Disturbances: 3-Moderate Harsh/Frighten Visual Disturbances: 0-None Headache: 0-None Present CIWA-Ar Total Score: 17 BHS Progress Note (SOAP) Subjective: Sweating, Diarrhea, Anxious, Body Aches. Objective: PT. A & O X 3, OBSERVED AMBULATING ON UNIT. NO ACUTE DISTRESS. PT. DENIES CHEST PAIN. 09/13/17 12:50 Vital Signs Temperature 96.3 F L 09/13/17 09:54 Pulse Rate 93 H 09/13/17 09:54 Respiratory Rate 18 09/13/17 09:54 Blood Pressure 128/84 09/13/17 09:54 O2 Sat by Pulse Oximetry (%) Laboratory Tests 09/12/17 09/12/17 09/12/17 12:15 12:15 12:15 WBC 5.5 D RBC 5.67 H Hgb 13.7 Hct 44.3 MCV 78.3 L MCH 24.1 L MCHC 30.8 L RDW 14.4 Plt Count 155 MPV 9.5 Sodium 140 Potassium 3.9 Chloride 103 Carbon Dioxide 28 Anion Gap 9 BUN 19 H Creatinine 1.0 Creat Clearance w eGFR > 60 Random Glucose 156 H D Calcium 8.4 L Total Bilirubin 0.8 AST 132 H D ALT 317 H D Alkaline Phosphatase 211 H D Total Protein 8.6 H Albumin 3.4 Urine Color Urine Appearance Urine pH Ur Specific [place] Urine Protein Urine Glucose (UA) Urine Ketones Urine Blood Urine Nitrite Urine Bilirubin Urine Urobilinogen Ur Leukocyte Esterase RPR Titer Nonreactive 09/12/17 19:00 WBC RBC Hgb Hct MCV MCH MCHC RDW Plt Count MPV Sodium Potassium Chloride Carbon Dioxide Anion Gap BUN Creatinine Creat Clearance w eGFR Random Glucose Calcium Total Bilirubin AST ALT Alkaline Phosphatase Total Protein Albumin Urine Color Yellow Urine Appearance Clear Urine pH 5.0 Ur Specific [place] 1.026 Urine Protein Negative Urine Glucose (UA) Negative Urine Ketones Negative Urine Blood Negative Urine Nitrite Negative Urine Bilirubin Negative Urine Urobilinogen 2.0 Ur Leukocyte Esterase Negative RPR Titer LABS NOTED. Assessment: 09/13/17 12:51 WITHDRAWAL SYMPTOMS. Plan: CONTINUE DETOX. INCREASE DAILY PO FLUID INTAKE. HEPATIC FUNCTION PANEL TOMORROW AM FOR ELEVATED ADMISSION LIVER ENZYME VALUES. BGM ACBK FOR ELEVATED RANDOM ADMISSION GLUCOSE LEVELS.
[2017-09-13] MEDS: guaiFENesin/D-METHORPHAN HB 10 ML UNIT-DOSE CUPS PO PRN (22:12)
[2017-09-13] MEDS: THIAMINE HCL 100 MG TABLET (FP) PO SCH (22:12)
[2017-09-13] MEDS: OLANZapine 5 MG TABLET PO SCH (22:12)
[2017-09-13] MEDS: MENTHOL/PHENOL 1 EACH UD MM PRN (22:52)
[2017-09-14] MEDS: MENTHOL/PHENOL 1 EACH UD MM PRN ×3 (02:09→22:29)
[2017-09-14] MEDS: chlordiazePOXIDE HCL 25 MG CAPSULE PO SCH ×2 (05:16→10:11)
[2017-09-14] MEDS: guaiFENesin/D-METHORPHAN HB 10 ML UNIT-DOSE CUPS PO PRN ×2 (05:17→14:30)
[2017-09-14] MEDS: amLODIPine BESYLATE 5 MG TABLET (FP) PO SCH (10:11)
[2017-09-14] MEDS: PRENATAL VITAMINS W/ FOLIC ACID TABLET (FP) PO SCH (10:11)
[2017-09-14] MEDS: CITALOPRAM HYDROBROMIDE 10 MG TABLET (FP) PO SCH (10:11)
[2017-09-14] MEDS: NICOTINE 21 MG/24 HOURS TOPICAL PATCH TD SCH (10:11)
[2017-09-14] MEDS: METHYL SALICYLATE/MENTHOL OINT 30 GM TUBE TP SCH ×2 (10:12→22:28)
[2017-09-14 12:27] LABS: ALBUMIN 2.7 g/dl (3.4-5.0); BILIRUBIN,DIRECT 0.3 mg/dL (0.0-0.2)
[2017-09-14 12:28] LABS: BILIRUBIN,TOTAL 0.6 mg/dL (0.2-1.0); TOT PROT 6.8 g/dl (6.4-8.2)
--- NOTE | 2017-09-14 16:39 | PN ---
[facility] CIWA - CIWA Score Nausea/Vomitin-No Nausea/No Vomiting Muscle Tremors: 3 Anxiety: 4-Mod. Anxious/Guarded Agitation: 2 Paroxysmal Sweats: 3 Orientation: 0-Oriented Tacttile Disturbances: 2-Mild Itch/Numbness/Burn Auditory Disturbances: 2-Mild Harshness/Frighten Visual Disturbances: 0-None Headache: 0-None Present CIWA-Ar Total Score: 16 S Progress Note (SOAP) Subjective: Body Aches, Anxious, Fatigue, Chills, Sweating. Objective: PT. A & O X 3, OBSERVED AMBULATING ON UNIT. NO ACUTE DISTRESS. 09/14/17 16:36 Vital Signs Temperature 97.9 F 09/14/17 13:17 Pulse Rate 91 H 09/14/17 13:17 Respiratory Rate 20 09/14/17 13:17 Blood Pressure 135/78 09/14/17 13:17 O2 Sat by Pulse Oximetry (%) Laboratory Tests 09/12/17 09/12/17 09/12/17 12:15 12:15 12:15 WBC 5.5 D RBC 5.67 H Hgb 13.7 Hct 44.3 MCV 78.3 L MCH 24.1 L MCHC 30.8 L RDW 14.4 Plt Count 155 MPV 9.5 Sodium 140 Potassium 3.9 Chloride 103 Carbon Dioxide 28 Anion Gap 9 BUN 19 H Creatinine 1.0 Creat Clearance w eGFR > 60 POC Glucometer Random Glucose 156 H D Calcium 8.4 L Total Bilirubin 0.8 Direct Bilirubin AST 132 H D ALT 317 H D Alkaline Phosphatase 211 H D Total Protein 8.6 H Albumin 3.4 Urine Color Urine Appearance Urine pH Ur Specific [place] Urine Protein Urine Glucose (UA) Urine Ketones Urine Blood Urine Nitrite Urine Bilirubin Urine Urobilinogen Ur Leukocyte Esterase RPR Titer Nonreactive 09/12/17 09/14/17 09/14/17 19:00 05:15 09:25 WBC RBC Hgb Hct MCV MCH MCHC RDW Plt Count MPV Sodium Potassium Chloride Carbon Dioxide Anion Gap BUN Creatinine Creat Clearance w eGFR POC Glucometer 115 Random Glucose Calcium Total Bilirubin 0.6 D Direct Bilirubin 0.3 H D AST 177 H D ALT 278 H Alkaline Phosphatase 147 H D Total Protein 6.8 D Albumin 2.7 L D Urine Color Yellow Urine Appearance Clear Urine pH 5.0 Ur Specific [place] 1.026 Urine Protein Negative Urine Glucose (UA) Negative Urine Ketones Negative Urine Blood Negative Urine Nitrite Negative Urine Bilirubin Negative Urine Urobilinogen 2.0 Ur Leukocyte Esterase Negative RPR Titer LABS NOTED. Assessment: 09/14/17 16:37 WITHDRAWAL SYMPTOMS. Plan: CONTINUE DETOX. INCREASE DAILY PO FLUID INTAKE.
[2017-09-14] MEDS: chlordiazePOXIDE 5 MG CAPSULE PO SCH ×2 (17:37→22:29)
[2017-09-14] MEDS: OLANZapine 5 MG TABLET PO SCH (22:29)
[2017-09-14] MEDS: THIAMINE HCL 100 MG TABLET (FP) PO SCH (22:29)
[2017-09-15] MEDS: chlordiazePOXIDE 5 MG CAPSULE PO SCH ×2 (05:38→10:24)
[2017-09-15] MEDS: PRENATAL VITAMINS W/ FOLIC ACID TABLET (FP) PO SCH (10:24)
[2017-09-15] MEDS: CITALOPRAM HYDROBROMIDE 10 MG TABLET (FP) PO SCH (10:24)
[2017-09-15] MEDS: NICOTINE 21 MG/24 HOURS TOPICAL PATCH TD SCH (10:24)
[2017-09-15] MEDS: amLODIPine BESYLATE 5 MG TABLET (FP) PO SCH (10:24)
[2017-09-15] MEDS: METHYL SALICYLATE/MENTHOL OINT 30 GM TUBE TP SCH ×2 (10:25→22:23)
--- NOTE | 2017-09-15 16:18 | PN ---
BHS Progress Note (SOAP) Subjective: Sweating, anxious, nausea Objective: 09/15/17 16:16 Last Vital Signs Temp Pulse Resp BP Pulse Ox 98.4 F 93 H 18 118/76 09/15/17 13:26 09/15/17 13:26 09/15/17 13:26 09/15/17 13:26 Laboratory Tests 09/12/17 09/12/17 09/12/17 12:15 12:15 12:15 WBC 5.5 D RBC 5.67 H Hgb 13.7 Hct 44.3 MCV 78.3 L MCH 24.1 L MCHC 30.8 L RDW 14.4 Plt Count 155 MPV 9.5 Sodium 140 Potassium 3.9 Chloride 103 Carbon Dioxide 28 Anion Gap 9 BUN 19 H Creatinine 1.0 Creat Clearance w eGFR > 60 POC Glucometer Random Glucose 156 H D Calcium 8.4 L Total Bilirubin 0.8 Direct Bilirubin AST 132 H D ALT 317 H D Alkaline Phosphatase 211 H D Total Protein 8.6 H Albumin 3.4 Urine Color Urine Appearance Urine pH Ur Specific [place] Urine Protein Urine Glucose (UA) Urine Ketones Urine Blood Urine Nitrite Urine Bilirubin Urine Urobilinogen Ur Leukocyte Esterase RPR Titer Nonreactive 09/12/17 09/14/17 09/14/17 19:00 05:15 09:25 WBC RBC Hgb Hct MCV MCH MCHC RDW Plt Count MPV Sodium Potassium Chloride Carbon Dioxide Anion Gap BUN Creatinine Creat Clearance w eGFR POC Glucometer 115 Random Glucose Calcium Total Bilirubin 0.6 D Direct Bilirubin 0.3 H D AST 177 H D ALT 278 H Alkaline Phosphatase 147 H D Total Protein 6.8 D Albumin 2.7 L D Urine Color Yellow Urine Appearance Clear Urine pH 5.0 Ur Specific [place] 1.026 Urine Protein Negative Urine Glucose (UA) Negative Urine Ketones Negative Urine Blood Negative Urine Nitrite Negative Urine Bilirubin Negative Urine Urobilinogen 2.0 Ur Leukocyte Esterase Negative RPR Titer Labs noted: serum glucose 156, elevated AST/ALT r/t hep c Assessment: 09/15/17 16:17 Withdrawal symptoms Noted with hyperglycemia and elevated LFTs secondary to hepatitis C Plan: Continue detox Hyperglycemia: repeat fasting glucose, send HbA1c, initiate oral antidiabetic medication if warranted, follow up with PCP post discharge for management Elevated LFTs secondary to hepatitis C: follow up with PCP for treatment
[2017-09-15] MEDS: chlordiazePOXIDE HCL 10 MG CAPSULE PO SCH ×2 (17:17→22:24)
[2017-09-15] MEDS: OLANZapine 5 MG TABLET PO SCH (22:24)
[2017-09-15] MEDS: MENTHOL/PHENOL 1 EACH UD MM PRN (22:24)
[2017-09-15] MEDS: THIAMINE HCL 100 MG TABLET (FP) PO SCH (22:24)
[2017-09-16] MEDS: chlordiazePOXIDE HCL 10 MG CAPSULE PO SCH (05:41)
--- NOTE | 2017-09-16 08:46 | DS ---
[facility] Detox Discharge Summary Admission Date: 09/12/17 - History Present History: Alcohol Dependence Additional Comments: DETOX COMPLETED. Pertinent Past History: SEE DX BELOW - Physical Exam Results Vital Signs: Vital Signs Temperature 97.4 F L 09/16/17 06:25 Pulse Rate 62 09/16/17 06:25 Respiratory Rate 18 09/16/17 06:25 Blood Pressure 112/73 09/16/17 06:25 O2 Sat by Pulse Oximetry (%) Pertinent Admission Physical Exam Findings: WITHDRAWAL SX Laboratory Last Values WBC 5.5 K/mm3 (4.0-10.0) D 09/12/17 12:15 RBC 5.67 M/mm3 (4.00-5.60) H 09/12/17 12:15 Hgb 13.7 GM/dL (11.7-16.9) 09/12/17 12:15 Hct 44.3 % (35.4-49) 09/12/17 12:15 MCV 78.3 fl (80-96) L 09/12/17 12:15 MCH 24.1 pg (25.7-33.7) L 09/12/17 12:15 MCHC 30.8 g/dl (32.0-35.9) L 09/12/17 12:15 RDW 14.4 % (11.9-15.9) 09/12/17 12:15 Plt Count 155 K/MM3 (134-434) 09/12/17 12:15 MPV 9.5 fl (7.5-11.1) 09/12/17 12:15 Sodium 140 mmol/L (136-145) 09/12/17 12:15 Potassium 3.9 mmol/L (3.5-5.1) 09/12/17 12:15 Chloride 103 mmol/L (98-107) 09/12/17 12:15 Carbon Dioxide 28 mmol/L (21-32) 09/12/17 12:15 Anion Gap 9 (8-16) 09/12/17 12:15 BUN 19 mg/dL (7-18) H 09/12/17 12:15 Creatinine 1.0 mg/dL (0.7-1.3) 09/12/17 12:15 Creat Clearance w eGFR > 60 (>60) 09/12/17 12:15 POC Glucometer 115 UNITS (80-120) 09/16/17 05:41 Random Glucose 156 mg/dL (74-106) H D 09/12/17 12:15 Fasting Glucose 119 mg/dL (70-105) H 09/16/17 07:00 Hemoglobin A1c % 7.0 % (4.8-6.0) H 09/16/17 07:00 Calcium 8.4 mg/dL (8.5-10.1) L 09/12/17 12:15 Total Bilirubin 0.6 mg/dL (0.2-1.0) D 09/14/17 09:25 Direct Bilirubin 0.3 mg/dL (0.0-0.2) H D 09/14/17 09:25 AST 177 U/L (15-37) H D 09/14/17 09:25 ALT 278 U/L (12-78) H 09/14/17 09:25 Alkaline Phosphatase 147 U/L (45-117) H D 09/14/17 09:25 Total Protein 6.8 g/dl (6.4-8.2) D 09/14/17 09:25 Albumin 2.7 g/dl (3.4-5.0) L D 09/14/17 09:25 Urine Color Yellow 09/12/17 19:00 Urine Appearance Clear 09/12/17 19:00 Urine pH 5.0 (5.0-8.0) 09/12/17 19:00 Ur Specific [place] 1.026 (1.001-1.035) 09/12/17 19:00 Urine Protein Negative (NEGATIVE) 09/12/17 19:00 Urine Glucose (UA) Negative (NEGATIVE) 09/12/17 19:00 Urine Ketones Negative (NEGATIVE) 09/12/17 19:00 Urine Blood Negative (NEGATIVE) 09/12/17 19:00 Urine Nitrite Negative (NEGATIVE) 09/12/17 19:00 Urine Bilirubin Negative (NEGATIVE) 09/12/17 19:00 Urine Urobilinogen 2.0 mg/dL (0.2-1.0) 09/12/17 19:00 Ur Leukocyte Esterase Negative (NEGATIVE) 09/12/17 19:00 RPR Titer Nonreactive (NONREACTIVE) 09/12/17 12:15 - Treatment Hospital Course: Detox Protocol Followed, Detoxed Safely, Responded well, Discharged Condition Good - Medication Discharge Medications: Ambulatory Orders Amlodipine Besylate [Norvasc -] 5 mg PO DAILY 07/29/17 Citalopram Hydrobromide [Celexa -] 10 mg PO DAILY #30 tablet 07/29/17 Olanzapine [Zyprexa] 10 mg PO HS #30 tablet 07/29/17 - Diagnosis (1) Alcohol dependence with uncomplicated withdrawal Status: Acute (2) GERD (gastroesophageal reflux disease) Status: Chronic Qualifiers: Esophagitis presence: esophagitis presence not specified Qualified Code(s) : K21.9 - Gastro-esophageal reflux disease without esophagitis (3) Nicotine dependence Status: Chronic Qualifiers: Nicotine product type: cigarettes Substance use status: in withdrawal Qualified Code(s): F17.213 - Nicotine dependence, cigarettes, with withdrawal (4) Weight loss Status: Acute (5) Cocaine dependence, uncomplicated Status: Chronic (6) Hepatitis C Status: Chronic Qualifiers: Viral hepatitis chronicity: chronic Hepatic coma status: without hepatic coma Qualified Code(s): B18.2 - Chronic viral hepatitis C (7) Hypertension Status: Chronic Qualifiers: Hypertension type: essential hypertension Qualified Code(s): I10 - Essential (primary) hypertension - AMA Did Patient Leave Against Medical Advice: No
[2017-09-16 09:45] VITALS: BP 134/92; PULSE 86; TEMP 96.4
== END 2017-09-16 09:19 | disposition home or self-care (01) | DRG 774 ==
LOC: YASAS 10:03 → Y3N 12:10
PROVIDERS: ADMIT Internal Medicine; ATTEND Internal Medicine
PROC: HZ2ZZZZ Detoxification Services for Substance Abuse Treatment (ICD-10-PCS; principal; 2017-09-12)
DX: F10.230 Alcohol dependence with withdrawal, uncomplicated (principal); F14.20 Cocaine dependence, uncomplicated; F17.213 Nicotine dependence, cigarettes, with withdrawal; F20.9 Schizophrenia, unspecified; I10 Essential (primary) hypertension; K21.9 Gastro-esophageal reflux disease without esophagitis; B18.2 Chronic viral hepatitis C; R73.9 Hyperglycemia, unspecified; R94.5 Abnormal results of liver function studies; Z88.8 Allergy status to other drugs, medicaments and biological substances; Z87.898 Personal history of other specified conditions
CPT/HCPCS: 36415; 80053; 80076; 81003; 82947; 82962; 83036; 85027; 86593; 93005; 93010

== ENCOUNTER 2017-10-31 11:04 | Inpatient (IN) | payer OTHER ==
[2017-10-31 12:03] VITALS: BMI 22.8
[2017-10-31] MEDS ORDERED: NICOTINE POLACRILEX 4 MG GUM BUC PRN (13:52)
[2017-10-31] MEDS ORDERED: MENTHOL/PHENOL 1 EACH UD MM PRN (13:52)
[2017-10-31] MEDS ORDERED: P-EPHED 60MG/TRIPROLIDI 2.5MG TABLET PO PRN (13:52)
[2017-10-31] MEDS ORDERED: MAGNESIUM HYDROX 2400MG/30ML ORAL SUSPENSION 30 ML CUP PO PRN (13:52)
[2017-10-31] MEDS ORDERED: guaiFENesin/D-METHORPHAN HB 10 ML UNIT-DOSE CUPS PO PRN (13:52)
[2017-10-31] MEDS ORDERED: MAGNESIUM CITRATE 300 ML BOTTLE PO PRN (13:52)
[2017-10-31] MEDS ORDERED: LOPERAMIDE HCL 2 MG CAPSULE PO PRN (13:52)
[2017-10-31] MEDS ORDERED: MAG HYDROX/AL HYDROX/SIMETH 30 ML UNIT-DOSE CUP PO PRN (13:52)
[2017-10-31] MEDS ORDERED: chlordiazePOXIDE HCL 25 MG CAPSULE PO PRN (13:52)
--- NOTE | 2017-10-31 13:52 | HP ---
CIWA Score - CIWA Score Nausea/Vomitin-Mild Nausea/No Vomiting Muscle Tremors: 4-Moderate,w/Arms Extend Anxiety: 4-Mod. Anxious/Guarded Agitation: 4-Moderately Restless Paroxysmal Sweats: 1-Minimal Palms Moist Orientation: 2-Disoriented Date<2 days Tacttile Disturbances: 1-Very Mild Itch/Numbness Auditory Disturbances: 0-None Visual Disturbances: 0-None Headache: 2-Mild CIWA-Ar Total Score: 19 Admission ROS S - HPI Chief Complaint: withdrawal sx Allergies/Adverse Reactions: Allergies Allergy/AdvReac Type Severity Reaction Status Date / Time haloperidol [From Haldol] AdvReac Severe stiffness Verified 10/31/17 13:44 haloperidol lactate AdvReac Severe stiffness Verified 10/31/17 13:44 [From Haldol] risperidone [From Risperdal] AdvReac Severe stiffness Verified 10/31/17 13:44 History of Present Illness: 61 years old male with long history of alcohol Exam Limitations: No Limitations - Ebola screening Have you traveled outside of the country in the last 21 days: No Have you had contact with anyone from an Ebola affected area: No Have you been sick,other than usual withdrawal symptoms: No Do you have a fever: No - Review of Systems Constitutional: Loss of Appetite, Changes in sleep, Unintentional Wgt. Loss, Unexplained wgt Loss EENT: reports: Dental Problems (no teeth) Respiratory: reports: No Symptoms reported Cardiac: reports: No Symptoms Reported GI: reports: Nausea, Poor Appetite, Poor Fluid Intake, Abdominal cramping : reports: No Symptoms Reported Musculoskeletal: reports: No Symptoms Reported Integumentary: reports: No Symptoms Reported Neuro: reports: Tremors Endocrine: reports: No Symptoms Reported Hematology: reports: No Symptoms Reported Psychiatric: reports: Judgement Intact, Anxious, Depressed Other Systems: Reviewed and Negative Patient History - Patient Medical History Hx Anemia: No Hx Asthma: No Hx Chronic Obstructive Pulmonary Disease (COPD): No Hx Cancer: No Hx Cardiac Disorders: No Hx Congestive Heart Failure: No Hx Hypertension: Yes (ON NORVASC) Hx Hypercholesterolemia: No Hx Pacemaker: No HX Cerebrovascular Accident: No Hx Seizures: No Hx Dementia: No Hx Diabetes: No Hx Gastrointestinal Disorders: No Hx Liver Disease: No Hx Genitourinary Disorders: No Hx Sexually Transmitted Disorders: No (DENIES) Hx Renal Disease (ESRD): No Hx Thyroid Disease: No Hx Human Immunodeficiency Virus (HIV): No (NEGATIVE HX;last 2014) Hx Hepatitis C: Yes (NO TREATMENT) Hx Depression: No Hx Suicide Attempt: No (DENIES) Hx Bipolar Disorder: No Hx Schizophrenia: Yes - Patient Surgical History Past Surgical History: Yes Hx Neurologic Surgery: No Hx Cataract Extraction: No Hx Cardiac Surgery: No Hx Lung Surgery: No Hx Breast Surgery: No Hx Breast Biopsy: No Hx Abdominal Surgery: Yes (abdomen perforated peptic ulcer in 1991) Hx Appendectomy: No Hx Cholecystectomy: No Hx Genitourinary Surgery: No Hx Orthopedic Surgery: No Anesthesia Reaction: No - PPD History Previous Implant?: Yes Documented Results: Negative w/proof Implanted On Prior [facility] Admission?: Yes Date: 04/18/17 Results: 0 mm PPD to be Administered?: No - Smoking Cessation Smoking history: Current every day smoker Have you smoked in the past 12 months: Yes Aproximately how many cigarettes per day: 20 Cigars Per Day: 0 Hx Chewing Tobacco Use: No Initiated information on smoking cessation: Yes 'Breaking Loose' booklet given: 10/31/17 - Substance & Tx. History Hx Alcohol Use: Yes Hx Substance Use: Yes Substance Use Type: Alcohol, Cocaine, Opiates Hx Substance Use Treatment: Yes (08/2017) - Substances Abused Crack Route: Smoking Frequency: Daily Amount used: $40 Age of first use: 24 Date of Last Use: 10/29/17 Alcohol-vodka/beer Route: Oral Frequency: Daily Amount used: 2 pts./1-6 pk. Age of first use: 24 Date of Last Use: 10/29/17 Family Disease History - Family Disease History Family Disease History: [place]: Father (), Mother (), Other: Father , Mother, Sister (no sister) Admission Physical Exam BHS - Vital Signs Vital Signs: Vital Signs - 24 hr 10/31/17 12:01 Temperature 97.4 F L Pulse Rate 93 H Respiratory 20 Rate Blood Pressure 119/69 - Physical General Appearance: Yes: Appropriately Dressed, Mild Distress, Thin, Tremorous, Irritable, Sweating, Anxious HEENTM: Yes: Hearing grossly Normal, Normal ENT Inspection, Normocephalic, Normal Voice, Other (no teeth able to chew regular food) Respiratory: Yes: Chest Non-Tender, Lungs Clear, Normal Breath Sounds, No Respiratory Distress, No Accessory Muscle Use Neck: Yes: Supple, Trachea in good position Breast: Yes: Breasts Symetrical Cardiology: Yes: Regular Rhythm, S1, S2, Tachycardia Abdominal: Yes: Normal Bowel Sounds, Non Tender, Soft Genitourinary: Yes: Within Normal Limits Back: Yes: Normal Inspection Musculoskeletal: Yes: full range of Motion, Gait Steady Extremities: Yes: Normal Inspection, Normal Range of Motion, Non-Tender, Tremors Neurological: Yes: Alert, Motor Strength 5/5, Normal Response, Depressed Affect Integumentary: Yes: Warm Lymphatic: Yes: Within Normal Limits - Diagnostic (1) Alcohol dependence with uncomplicated withdrawal Current Visit: Yes Status: Acute (2) Weight loss Current Visit: Yes Status: Acute (3) Cocaine dependence, uncomplicated Current Visit: Yes Status: Chronic (4) Hepatitis C Current Visit: Yes Status: Chronic Qualifiers: Viral hepatitis chronicity: chronic Hepatic coma status: without hepatic coma Qualified Code(s): B18.2 - Chronic viral hepatitis C (5) Schizophrenia Current Visit: Yes Status: Suspected Qualifiers: Schizophrenia type: disorganized schizophrenia Qualified Code(s): F20.1 - Disorganized schizophrenia Comment: Self reports. Cleared for Admission [facility] - Detox or Rehab [facility] Level of Care: Medically Managed Detox Regimen/Protocol: Librium S Breath Alcohol Content Breath Alcohol Content: 0 Urine Drug Screen - Results Drug Screen Negative: No Urine Drug Screen Results: PAOLO-Cocaine, OPI-Opiates, BAR-Barbiturates, BZO- Benzodiazepines
--- NOTE | 2017-10-31 15:06 | CONSULT ---
[facility] Psychiatric Consult - Data Date of interview: 10/31/17 Admission source: [facility] Identifying data: This is 61 years old AA male, , unsmployed, on SSI , homeless, with history of Schizophrenia, with simptoms of Alcohol and Xanax, Cocaine withdrawal , here for detox protocol. Substance Abuse History: Urine Drug Screen Results: PAOLO-Cocaine, OPI-Opiates, BAR-Barbiturates, BZO-Benzodiazepines. - Smoking Cessation. Smoking history: Current every day smoker. Have you smoked in the past 12 months: Yes. Aproximately how many cigarettes per day: 20. Cigars Per Day: 0. Hx Chewing Tobacco Use: No. Initiated information on smoking cessation: Yes. 'Breaking Loose' booklet given: 10/31/17. - Substance & Tx. History. Hx Alcohol Use: Yes. Hx Substance Use: Yes. Substance Use Type: Alcohol, Cocaine, Opiates. Hx Substance Use Treatment: Yes (08/2017). - Substances Abused. Crack. Route: Smoking. Frequency: Daily. Amount used: $40. Age of first use: 24. Date of Last Use: 10/29/17. Alcohol-vodka/beer. Route: Oral. Frequency: Daily. Amount used: 2 pts./1-6 pk. Age of first use: 24. Date of Last Use: Medical History: Weight loss history, HepC+, HTN, GERD Psychiatric History: Patient reports history of Schizophrenia, reports most recent psychiatric admission on about 10 years ago, reports taking prior to admission: Zyprexa 10mg po qhs. Celexa 10mg poqd Physical/Sexual Abuse/Trauma History: Denies Additional Comment: Urine Drug Screen Results: PAOLO-Cocaine, OPI-Opiates, BAR- Barbiturates, BZO-Benzodiazepines Mental Status Exam - Mental Status Exam Alert and Oriented to: Person Cognitive Function: Fair Patient Appearance: Well Groomed Mood: Euthymic Affect: Mood Congruent Patient Behavior: Cooperative Speech Pattern: Appropriate Voice Loudness: Normal Thought Process: Goal Oriented Thought Disorder: Being Controlled Hallucinations: Denies Suicidal Ideation: Denies Homicidal Ideation: Denies Insight/Judgement: Fair Sleep: Difficulty falling asleep Appetite: Weight loss Muscle strength/Tone: Normal Gait/Station: Normal Additional Comments: Zyprexa 10mg po qhs. Celexa 10mg poqd Psychiatric Findings - Problem List ([place] 1, 2,3) (1) Alcohol dependence with uncomplicated withdrawal Current Visit: Yes Status: Acute (2) Weight loss Current Visit: Yes Status: Acute (3) Cocaine dependence, uncomplicated Current Visit: Yes Status: Chronic (4) Schizophrenia Current Visit: Yes Status: Suspected Qualifiers: Schizophrenia type: disorganized schizophrenia Qualified Code(s): F20.1 - Disorganized schizophrenia Comment: Self reports. (5) Nicotine dependence Current Visit: No Status: Chronic Qualifiers: Nicotine product type: cigarettes Substance use status: in withdrawal Qualified Code(s): F17.213 - Nicotine dependence, cigarettes, with withdrawal (6) Paranoid schizophrenia Current Visit: No Status: Chronic - Initial Treatment Plan Initial Treatment Plan: Zyprexa 10mg po qhs. Celexa 10mg poqd
[2017-10-31] MEDS ORDERED: chlordiazePOXIDE HCL 25 MG CAPSULE PO ONE (15:20)
--- NOTE | 2017-10-31 15:53 | EKG ---
Test Reason : Blood Pressure : / mmHG Vent. Rate : 081 BPM Atrial Rate : 081 BPM P-R Int : 138 ms QRS Dur : 090 ms QT Int : 386 ms P-R-T Axes : 076 064 070 degrees QTc Int : 448 ms NORMAL SINUS RHYTHM NORMAL ECG WHEN COMPARED WITH ECG OF 12-SEP-2017 14:16, NO SIGNIFICANT CHANGE WAS FOUND Confirmed by ALBANIA ORTA MD ([id number]) on 10/31/2017 3:53:37 PM Referred By: Confirmed By:ALBANIA ORTA MD
[2017-10-31 17:12] LABS: URINE APPEARANCE CLEAR; URINE BILIRUBIN NEGATIVE (NEGATIVE); URINE BLOOD NEGATIVE (NEGATIVE); URINE COLOR AMBER; URINE GLUCOSE (UA) NEGATIVE (NEGATIVE); URINE KETONE NEGATIVE (NEGATIVE); URINE LEUK ESTERASE NEGATIVE (NEGATIVE); URINE NITRITE NEGATIVE (NEGATIVE); URINE PROTEIN NEGATIVE (NEGATIVE); URINE UROBILINOGEN 4.0 E.U/dl mg/dL (0.2-1.0)
[2017-10-31] MEDS: chlordiazePOXIDE HCL 25 MG CAPSULE PO SCH (22:26)
[2017-10-31] MEDS: RANITIDINE HCL 150 MG TABLET (FP) PO SCH (22:27)
[2017-10-31] MEDS: THIAMINE HCL 100 MG TABLET (FP) PO SCH (22:27)
[2017-10-31] MEDS: OLANZapine 10 MG TABLET PO SCH (22:27)
[2017-11-01] MEDS: chlordiazePOXIDE HCL 25 MG CAPSULE PO SCH ×4 (05:52→22:34)
--- NOTE | 2017-11-01 10:00 | PN ---
S CIWA - CIWA Score Nausea/Vomitin Muscle Tremors: 3 Anxiety: 3 Agitation: 3 Paroxysmal Sweats: 1-Minimal Palms Moist Orientation: 0-Oriented Tacttile Disturbances: 1-Very Mild Itch/Numbness Auditory Disturbances: 1-Very Mild Visual Disturbances: 0-None Headache: 2-Mild CIWA-Ar Total Score: 17 BHS Progress Note (SOAP) Subjective: ALERT,IRRITABLE,ANXIOUS,INTERRUPTED SLEEP,TREMOR Objective: 11/01/17 09:59 Vital Signs Temperature 98.2 F 11/01/17 09:33 Pulse Rate 78 11/01/17 09:33 Respiratory Rate 18 11/01/17 09:33 Blood Pressure 138/81 11/01/17 09:33 O2 Sat by Pulse Oximetry (%) 11/01/17 09:59 EKG NSR,NORMAL ECG 11/01/17 10:00 Laboratory Last Values Urine Color [place] 10/31/17 16:00 Urine Appearance Clear 10/31/17 16:00 Urine pH 5.0 (5.0-8.0) 10/31/17 16:00 Ur Specific [place] 1.027 (1.001-1.035) 10/31/17 16:00 Urine Protein Negative (NEGATIVE) 10/31/17 16:00 Urine Glucose (UA) Negative (NEGATIVE) 10/31/17 16:00 Urine Ketones Negative (NEGATIVE) 10/31/17 16:00 Urine Blood Negative (NEGATIVE) 10/31/17 16:00 Urine Nitrite Negative (NEGATIVE) 10/31/17 16:00 Urine Bilirubin Negative (NEGATIVE) 10/31/17 16:00 Urine Urobilinogen 4.0 e.u/dl mg/dL (0.2-1.0) 10/31/17 16:00 Ur Leukocyte Esterase Negative (NEGATIVE) 10/31/17 16:00 LABS PENDING Assessment: 11/01/17 09:59 WITHDRAWAL SYMPTOM Plan: CONTINUE DETOX
[2017-11-01 10:29] LABS: HEMOGLOBIN 13.4 GM/dL (11.7-16.9); MCH 25.3 pg (25.7-33.7); MCHC 31.9 g/dl (32.0-35.9); MEAN CELL VOLUME 79.4 fl (80-96); MEAN PLT VOLUME 10.5 fl (7.5-11.1); PLATELET COUNT 143 K/MM3 (134-434); RBC 5.29 M/mm3 (4.00-5.60); RDW 15.3 % (11.9-15.9); WHITE BLOOD COUNT 2.6 K/mm3 (4.0-10.0)
[2017-11-01 10:34] LABS: ALBUMIN 3.4 g/dl (3.4-5.0); ANION GAP 6 (8-16); BLOOD UREA NITROGEN 18 mg/dL (7-18); CHLORIDE 104 mmol/L (98-107); CO2 29 mmol/L (21-32); GLUCOSE,RANDOM 72 mg/dL (74-106); POTASSIUM 4.5 mmol/L (3.5-5.1); SODIUM 139 mmol/L (136-145)
[2017-11-01 10:38] LABS: ALK PHOS 131 U/L (45-117); BILIRUBIN,TOTAL 0.8 mg/dL (0.2-1.0); SGOT/AST 196 U/L (15-37); SGPT/ALT 251 U/L (12-78); TOT PROT 8.5 g/dl (6.4-8.2)
[2017-11-01] MEDS: RANITIDINE HCL 150 MG TABLET (FP) PO SCH ×2 (10:42→22:35)
[2017-11-01] MEDS: CITALOPRAM HYDROBROMIDE 10 MG TABLET (FP) PO SCH (10:42)
[2017-11-01] MEDS: PRENATAL VITAMINS W/ FOLIC ACID TABLET (FP) PO SCH (10:42)
[2017-11-01] MEDS: NICOTINE 21 MG/24 HOURS TOPICAL PATCH TD SCH (10:43)
[2017-11-01] MEDS: ACETAMINOPHEN 325 MG TABLET (FP) PO PRN (14:38)
[2017-11-01] MEDS: THIAMINE HCL 100 MG TABLET (FP) PO SCH (22:35)
[2017-11-01] MEDS: OLANZapine 10 MG TABLET PO SCH (22:35)
[2017-11-02] MEDS: chlordiazePOXIDE HCL 25 MG CAPSULE PO SCH ×3 (06:09→17:38)
[2017-11-02] MEDS: RANITIDINE HCL 150 MG TABLET (FP) PO SCH (10:54)
[2017-11-02] MEDS: NICOTINE 21 MG/24 HOURS TOPICAL PATCH TD SCH (10:54)
[2017-11-02] MEDS: PRENATAL VITAMINS W/ FOLIC ACID TABLET (FP) PO SCH (10:54)
[2017-11-02] MEDS: CITALOPRAM HYDROBROMIDE 10 MG TABLET (FP) PO SCH (10:54)
[2017-11-02] MEDS: ACETAMINOPHEN 325 MG TABLET (FP) PO PRN (11:44)
--- NOTE | 2017-11-02 14:11 | PN ---
S CIWA - CIWA Score Nausea/Vomitin Muscle Tremors: 3 Anxiety: 3 Agitation: 3 Paroxysmal Sweats: 2 Orientation: 0-Oriented Tacttile Disturbances: 0-None Auditory Disturbances: 0-None Visual Disturbances: 0-None Headache: 0-None Present CIWA-Ar Total Score: 14 S Progress Note (SOAP) Subjective: sleep disturbance shakes anxious Objective: 11/02/17 14:09 A & O x 3 Met in dayroom painting Vital Signs Temperature 97.9 F 11/02/17 10:00 Pulse Rate 81 11/02/17 10:00 Respiratory Rate 18 11/02/17 10:00 Blood Pressure 105/66 11/02/17 10:00 O2 Sat by Pulse Oximetry (%) Laboratory Last Values WBC 2.6 K/mm3 (4.0-10.0) L D 11/01/17 05:50 RBC 5.29 M/mm3 (4.00-5.60) 11/01/17 05:50 Hgb 13.4 GM/dL (11.7-16.9) 11/01/17 05:50 Hct 42.0 % (35.4-49) 11/01/17 05:50 MCV 79.4 fl (80-96) L 11/01/17 05:50 MCH 25.3 pg (25.7-33.7) L 11/01/17 05:50 MCHC 31.9 g/dl (32.0-35.9) L 11/01/17 05:50 RDW 15.3 % (11.9-15.9) 11/01/17 05:50 Plt Count 143 K/MM3 (134-434) 11/01/17 05:50 MPV 10.5 fl (7.5-11.1) D 11/01/17 05:50 Sodium 139 mmol/L (136-145) 11/01/17 05:50 Potassium 4.5 mmol/L (3.5-5.1) 11/01/17 05:50 Chloride 104 mmol/L (98-107) 11/01/17 05:50 Carbon Dioxide 29 mmol/L (21-32) 11/01/17 05:50 Anion Gap 6 (8-16) L 11/01/17 05:50 BUN 18 mg/dL (7-18) 11/01/17 05:50 Creatinine 1.0 mg/dL (0.7-1.3) 11/01/17 05:50 Creat Clearance w eGFR > 60 (>60) 11/01/17 05:50 Random Glucose 72 mg/dL (74-106) L D 11/01/17 05:50 Calcium 8.0 mg/dL (8.5-10.1) L 11/01/17 05:50 Total Bilirubin 0.8 mg/dL (0.2-1.0) D 11/01/17 05:50 AST 196 U/L (15-37) H 11/01/17 05:50 ALT 251 U/L (12-78) H 11/01/17 05:50 Alkaline Phosphatase 131 U/L (45-117) H 11/01/17 05:50 Total Protein 8.5 g/dl (6.4-8.2) H D 11/01/17 05:50 Albumin 3.4 g/dl (3.4-5.0) D 11/01/17 05:50 Urine Color [place] 10/31/17 16:00 Urine Appearance Clear 10/31/17 16:00 Urine pH 5.0 (5.0-8.0) 10/31/17 16:00 Ur Specific [place] 1.027 (1.001-1.035) 10/31/17 16:00 Urine Protein Negative (NEGATIVE) 10/31/17 16:00 Urine Glucose (UA) Negative (NEGATIVE) 10/31/17 16:00 Urine Ketones Negative (NEGATIVE) 10/31/17 16:00 Urine Blood Negative (NEGATIVE) 10/31/17 16:00 Urine Nitrite Negative (NEGATIVE) 10/31/17 16:00 Urine Bilirubin Negative (NEGATIVE) 10/31/17 16:00 Urine Urobilinogen 4.0 e.u/dl mg/dL (0.2-1.0) 10/31/17 16:00 Ur Leukocyte Esterase Negative (NEGATIVE) 10/31/17 16:00 RPR Titer Nonreactive (NONREACTIVE) 11/01/17 05:50 HIV 1&2 Antibody Screen Negative 10/31/17 14:00 HIV P24 Antigen Negative 10/31/17 14:00 labs noted, Hx of Hep C Assessment: 11/02/17 14:10 Withdrawal sx Plan: continue detox
--- NOTE | 2017-11-02 22:11 | PN ---
S Progress Note Note: informed client ama for personal reasons. client declined to speak with provider. client was seen by provider leaving facility in stable condition.
--- NOTE | 2017-11-02 22:14 | DS ---
[facility] Detox Discharge Summary Admission Date: 10/31/17 Discharge Date: 11/02/17 - History Present History: Alcohol Dependence, Cocaine Dependence Pertinent Past History: chronic hep c HTN NICOTINE DEP - Physical Exam Results Vital Signs: Vital Signs Temperature 97.2 F L 11/02/17 17:53 Pulse Rate 70 11/02/17 17:53 Respiratory Rate 20 11/02/17 17:53 Blood Pressure 113/76 11/02/17 17:53 O2 Sat by Pulse Oximetry (%) Pertinent Admission Physical Exam Findings: WITHDRAWAL SX'S - Treatment Hospital Course: Discharged Condition Good - Medication Discharge Medications: Ambulatory Orders Amlodipine Besylate [Norvasc -] 5 mg PO DAILY 07/29/17 Olanzapine [Zyprexa] 10 mg PO HS #30 tablet 07/29/17 Citalopram Hydrobromide [Celexa -] 10 mg PO DAILY #30 tablet 10/31/17 Olanzapine [ZyPREXA -] 10 mg PO HS #30 tablet 10/31/17 - Diagnosis (1) Alcohol dependence with uncomplicated withdrawal Current Visit: Yes Status: Acute (2) Cocaine dependence, uncomplicated Current Visit: Yes Status: Chronic (3) Hepatitis C Current Visit: Yes Status: Chronic Qualifiers: Viral hepatitis chronicity: chronic Hepatic coma status: without hepatic coma Qualified Code(s): B18.2 - Chronic viral hepatitis C (4) Nicotine dependence Current Visit: No Status: Chronic Qualifiers: Nicotine product type: cigarettes Substance use status: in withdrawal Qualified Code(s): F17.213 - Nicotine dependence, cigarettes, with withdrawal (5) Hypertension Current Visit: No Status: Chronic Qualifiers: Hypertension type: essential hypertension Qualified Code(s): I10 - Essential (primary) hypertension - AMA Did Patient Leave Against Medical Advice: Yes
[2017-11-02] MEDS ORDERED: chlordiazePOXIDE 5 MG CAPSULE PO SCH (23:00)
[2017-11-02 23:08] VITALS: BP 140/79; PULSE 77; TEMP 97.7
[2017-11-03] MEDS ORDERED: chlordiazePOXIDE HCL 10 MG CAPSULE PO SCH (23:00)
== END 2017-11-02 22:00 | disposition left against medical advice (07) | DRG 770 ==
LOC: YASAS 11:04 → Y6N 14:45
PROVIDERS: ADMIT Internal Medicine; ATTEND Internal Medicine
PROC: HZ2ZZZZ Detoxification Services for Substance Abuse Treatment (ICD-10-PCS; principal; 2017-10-31)
DX: F10.230 Alcohol dependence with withdrawal, uncomplicated (principal); F14.20 Cocaine dependence, uncomplicated; F17.213 Nicotine dependence, cigarettes, with withdrawal; F20.1 Disorganized schizophrenia; F20.0 Paranoid schizophrenia; I10 Essential (primary) hypertension; B18.2 Chronic viral hepatitis C; K21.9 Gastro-esophageal reflux disease without esophagitis; R00.0 Tachycardia, unspecified; Z88.8 Allergy status to other drugs, medicaments and biological substances; Z87.898 Personal history of other specified conditions
CPT/HCPCS: 36415; 80053; 81003; 85027; 86593; 87389; 93005; 93010

== ENCOUNTER 2018-09-04 08:59 | Inpatient (IN) | payer OTHER ==
[2018-09-04 10:00] VITALS: BMI 23.2
--- NOTE | 2018-09-04 11:43 | HP ---
CIWA Score Nausea/Vomitin Muscle Tremors: 2 Anxiety: 2 Agitation: 2 Paroxysmal Sweats: 1-Minimal Palms Moist Orientation: 0-Oriented Tacttile Disturbances: 1-Very Mild Itch/Numbness Auditory Disturbances: 1-Very Mild Visual Disturbances: 0-None Headache: 2-Mild CIWA-Ar Total Score: 13 - Admission Criteria OASAS Guidelines: Admission for Medically Managed Detox: Requires at least one of the followin. CIWA greater than 12 2. Seizures within the past 24 hours 3. Delirium tremens within the past 24 hours 4. Hallucinations within the past 24 hours 5. Acute intervention needed for co occurring medical disorder 6. Acute intervention needed for co occurring psychiatric disorder 7. Severe withdrawal that cannot be handled at a lower level of care (continued vomiting, continued diarrhea, abnormal vital signs) requiring intravenous medication and/or fluids 8. Admission ROS S - HPI Chief Complaint: i need help to sto drinking alcohol and cocaine Allergies/Adverse Reactions: Allergies Allergy/AdvReac Type Severity Reaction Status Date / Time haloperidol [From Haldol] AdvReac Severe stiffness Verified 09/04/18 10:55 haloperidol lactate AdvReac Severe stiffness Verified 09/04/18 10:55 [From Haldol] risperidone [From Risperdal] AdvReac Severe stiffness Verified 09/04/18 10:55 History of Present Illness: this 62 years old male with alcohol and cocaine dependence,seeking detox, withdrawal symptom last detox 12/03/11 to 12/05/17 [facility] syncope history of hypertension schizophrenia hepatitis c perforated peptic ulcer weight loss no significant period of sobriety Exam Limitations: No Limitations - Ebola screening Have you traveled outside of the country in the last 21 days: No Have you had contact with anyone from an Ebola affected area: No Have you been sick,other than usual withdrawal symptoms: No Do you have a fever: No - Review of Systems Constitutional: Loss of Appetite, Malaise, Night Sweats, Changes in sleep, Weakness, Unintentional Wgt. Loss EENT: reports: Tearing, Nose Congestion Respiratory: reports: No Symptoms reported Cardiac: reports: No Symptoms Reported GI: reports: Nausea, Poor Appetite, Abdominal cramping, Other (perforated peptic ulcer) : reports: No Symptoms Reported Musculoskeletal: reports: Back Pain, Muscle Pain Integumentary: reports: Dryness Neuro: reports: Headache, Tremors Endocrine: reports: No Symptoms Reported Hematology: reports: No Symptoms Reported Psychiatric: reports: No Sypmtoms Reported, Judgement Intact, Mood/Affect Appropiate, Orientated x3 (schizophrenia) Patient History - Patient Medical History Hx Anemia: No Hx Asthma: No Hx Chronic Obstructive Pulmonary Disease (COPD): No Hx Cancer: No Hx Cardiac Disorders: No Hx Congestive Heart Failure: No Hx Hypertension: Yes (on meds.) Hx Hypercholesterolemia: No Hx Pacemaker: No HX Cerebrovascular Accident: No Hx Seizures: No Hx Dementia: No Hx Diabetes: No Hx Gastrointestinal Disorders: No Hx Liver Disease: No Hx Genitourinary Disorders: No Hx Sexually Transmitted Disorders: No Hx Renal Disease (ESRD): No Hx Thyroid Disease: No Hx Human Immunodeficiency Virus (HIV): No (NEGATIVE HX;last 2017) Hx Hepatitis C: Yes (NO TREATMENT) Hx Depression: Yes Hx Suicide Attempt: No Hx Bipolar Disorder: No Hx Schizophrenia: Yes - Patient Surgical History Past Surgical History: Yes Hx Neurologic Surgery: No Hx Cataract Extraction: No Hx Cardiac Surgery: No Hx Lung Surgery: No Hx Breast Surgery: No Hx Breast Biopsy: No Hx Abdominal Surgery: Yes (abdomen perforated peptic ulcer in 1991) Hx Appendectomy: No Hx Cholecystectomy: No Hx Genitourinary Surgery: No Hx Section: No Hx Orthopedic Surgery: No Hx Hysterectomy: No Anesthesia Reaction: No - PPD History Previous Implant?: Yes Documented Results: Negative w/proof Implanted On Prior R Admission?: Yes Date: 04/13/18 Results: 0 mm - Smoking Cessation Smoking history: Current every day smoker Have you smoked in the past 12 months: Yes Aproximately how many cigarettes per day: 20 Cigars Per Day: 0 Hx Chewing Tobacco Use: No Initiated information on smoking cessation: Yes 'Breaking Loose' booklet given: 09/04/18 - Substance & Tx. History Hx Alcohol Use: Yes Hx Substance Use: Yes Substance Use Type: Alcohol, Cocaine - Substances Abused Alcohol Route: Oral Frequency: Daily Amount used: 1 pint liquor/ 5-6 16 oz beers Age of first use: 24 Date of Last Use: 09/02/18 Cocaine Route: Smoking Frequency: Daily Amount used: 1 bag Age of first use: 33 Date of Last Use: 09/02/18 Family Disease History - Family Disease History Family Disease History: [place]: Father (), Mother (), Other: Father , Mother, Sister (no sister) Admission Physical Exam [facility] - Vital Signs Vital Signs: Vital Signs - 24 hr 09/04/18 09:55 Temperature 97.5 F L Pulse Rate 84 Respiratory 18 Rate Blood Pressure 153/91 - Physical General Appearance: Yes: Moderate Distress, Tremorous, Irritable, Sweating, Anxious HEENTM: Yes: Tm's normal, Photophobia, Other (no teeth) Respiratory: Yes: Lungs Clear, Normal Breath Sounds, No Respiratory Distress Neck: Yes: Supple, Trachea in good position, Thyroid tenderness Breast: Yes: Within Normal Limits Cardiology: Yes: Within Normal Limits, Regular Rhythm, Regular Rate, S1, S2 Abdominal: Yes: Within Normal Limits, Normal Bowel Sounds, Non Tender, Flat, Soft Genitourinary: Yes: Within Normal Limits Back: Yes: Muscle Spasm Musculoskeletal: Yes: full range of Motion, Back pain, Muscle Pain Extremities: Yes: Within Normal Limits, Normal Range of Motion, Tremors Neurological: Yes: nurse first aid II-XII NML intact, Fully Oriented, Alert, Motor Strength 5/5 Integumentary: Yes: Dry Lymphatic: Yes: Within Normal Limits - Diagnostic (1) Alcohol dependence with uncomplicated withdrawal Current Visit: No Status: Acute (2) Cocaine dependence Current Visit: No Status: Acute (3) Weight loss Current Visit: No Status: Acute (4) Hepatitis C Current Visit: No Status: Chronic Qualifiers: Viral hepatitis chronicity: chronic Hepatic coma status: without hepatic coma Qualified Code(s): B18.2 - Chronic viral hepatitis C (5) Hypertension Current Visit: No Status: Chronic Qualifiers: Hypertension type: essential hypertension Qualified Code(s): I10 - Essential (primary) hypertension (6) Nicotine dependence Current Visit: No Status: Chronic Qualifiers: Nicotine product type: cigarettes Substance use status: in withdrawal Qualified Code(s): F17.213 - Nicotine dependence, cigarettes, with withdrawal (7) Schizophrenia Current Visit: No Status: Suspected Qualifiers: Schizophrenia type: disorganized schizophrenia Qualified Code(s): F20.1 - Disorganized schizophrenia Comment: Self reports. (8) No natural teeth Current Visit: Yes Status: Acute Cleared for Admission S - Detox or Rehab [facility] Level of Care: Medically Managed Detox Regimen/Protocol: Librium S Breath Alcohol Content Breath Alcohol Content: 0 Urine Drug Screen - Results Drug Screen Negative: No Urine Drug Screen Results: PAOLO-Cocaine
[2018-09-04] MEDS ORDERED: ACETAMINOPHEN 325 MG TABLET (FP) PO PRN (11:52)
[2018-09-04] MEDS ORDERED: MAG HYDROX/AL HYDROX/SIMETH 30 ML UNIT-DOSE CUP PO PRN (11:52)
[2018-09-04] MEDS ORDERED: LOPERAMIDE HCL 2 MG CAPSULE PO PRN (11:52)
[2018-09-04] MEDS ORDERED: P-EPHED 60MG/TRIPROLIDI 2.5MG TABLET PO PRN (11:52)
[2018-09-04] MEDS ORDERED: MAGNESIUM HYDROX 2400MG/30ML ORAL SUSPENSION 30 ML CUP PO PRN (11:52)
[2018-09-04] MEDS ORDERED: chlordiazePOXIDE HCL 25 MG CAPSULE PO PRN (11:52)
[2018-09-04] MEDS ORDERED: guaiFENesin/D-METHORPHAN HB 10 ML UNIT-DOSE CUPS PO PRN (11:52)
[2018-09-04] MEDS ORDERED: MAGNESIUM CITRATE 300 ML BOTTLE PO PRN (11:52)
[2018-09-04] MEDS ORDERED: MENTHOL/PHENOL 1 EACH UD MM PRN (11:52)
[2018-09-04] MEDS: NICOTINE 21 MG/24 HOURS TOPICAL PATCH TD SCH (14:00)
[2018-09-04] MEDS: chlordiazePOXIDE HCL 25 MG CAPSULE PO SCH ×2 (16:44→22:12)
[2018-09-04] MEDS ORDERED: MELATONIN 5 MG TABLETS PO PRN (22:00)
[2018-09-04] MEDS: THIAMINE HCL 100 MG TABLET (FP) PO SCH (22:12)
[2018-09-05] MEDS: chlordiazePOXIDE HCL 25 MG CAPSULE PO SCH ×4 (05:48→22:16)
[2018-09-05 10:26] LABS: ALBUMIN 3.3 g/dl (3.4-5.0); ALK PHOS 140 U/L (45-117); ANION GAP 6 MMOL/L (8-16); BILIRUBIN,TOTAL 0.5 mg/dL (0.2-1); BLOOD UREA NITROGEN 18 mg/dL (7-18); CALCIUM 8.7 mg/dL (8.5-10.1); CHLORIDE 106 mmol/L (98-107); CO2 28 mmol/L (21-32); CREATININE 1.1 mg/dL (0.55-1.3); GLUCOSE,RANDOM 118 mg/dL (74-106); POTASSIUM 4.1 mmol/L (3.5-5.1); SGOT/AST 47 U/L (15-37); SGPT/ALT 46 U/L (13-61); SODIUM 140 mmol/L (136-145); TOT PROT 8.6 g/dl (6.4-8.2)
[2018-09-05] MEDS: NICOTINE 21 MG/24 HOURS TOPICAL PATCH TD SCH (10:31)
[2018-09-05] MEDS: PRENATAL VITAMINS W/ FOLIC ACID TABLET (FP) PO SCH (10:31)
[2018-09-05] MEDS: amLODIPine BESYLATE 5 MG TABLET (FP) PO SCH (10:31)
[2018-09-05 10:34] LABS: HEMOGLOBIN 12.9 GM/dL (11.7-16.9); MCH 25.2 pg (25.7-33.7); MCHC 32.2 g/dl (32.0-35.9); MEAN CELL VOLUME 78.2 fl (80-96); MEAN PLT VOLUME 9.7 fl (7.5-11.1); PLATELET COUNT 210 K/MM3 (134-434); RBC 5.12 M/mm3 (4.00-5.60); RDW 15.3 % (11.9-15.9); WHITE BLOOD COUNT 4.1 K/mm3 (4.0-10.0)
--- NOTE | 2018-09-05 10:35 | CONSULT ---
[facility] Psychiatric Consult - Data Date of interview: 09/05/18 Admission source: [facility] Identifying data: Patient is a 62 year old male, from , father of six, unemployed, homeless, and is supported by [facility]. This is one of multiple admissions for patient. Patient admitted to for alcohol dependence. Substance Abuse History: Smoking Cessation. Smoking history: Current every day smoker. Have you smoked in the past 12 months: Yes. Aproximately how many cigarettes per day: 20. Cigars Per Day: 0. Hx Chewing Tobacco Use: No. Initiated information on smoking cessation: Yes. 'Breaking Loose' booklet given : 09/04/18. - Substance & Tx. History. Hx Alcohol Use: Yes. Hx Substance Use : Yes. Substance Use Type: Alcohol, Cocaine. - Substances Abused. Alcohol. Route: Oral. Frequency: Daily. Amount used: 1 pint liquor/ 5-6 16 oz beers. Age of first use: 24. Date of Last Use: 09/02/18. Cocaine. Route: Smoking. Frequency: Daily. Amount used: 1 bag. Age of first use: 33. Date of Last Use: 09/02/18 Medical History: Significant for hypertension, hepatitis C and a history of surgery for perforated peptic ulcer in 1991 Psychiatric History: Patient unable to give a clear, cohesive psychiatric history. Patient reports multiple psychiatric hospitalizations at [facility], [facility] and [facility]. Diagnosis of paranoid schizophrenia. Mr. Saini reports history of auditory hallucinations and paranoia ideations. States he was prescribed zypraxa 20mg and zoloft 50mg in the past. As per pharmacy claims he has also been prescribed celexa. Mr. Saini has not accepted psychotropic medications in several weeks. Patient denies psychotic, manic or depresive symtoms. Patient denies h/o suicide attempt. Physical/Sexual Abuse/Trauma History: denies. Mental Status Exam - Mental Status Exam Alert and Oriented to: Time, Place, Person Cognitive Function: Good Patient Appearance: Disheveled Mood: Anxious, Euthymic Affect: Mood Congruent Patient Behavior: Cooperative Speech Pattern: Clear Voice Loudness: Normal Thought Process: Goal Oriented Thought Disorder: Not Present Hallucinations: Denies Suicidal Ideation: Denies Homicidal Ideation: Denies Insight/Judgement: Poor Sleep: Fair Appetite: Fair Muscle strength/Tone: Normal Gait/Station: Normal Psychiatric Findings - Problem List ([place] 1, 2,3) (1) Alcohol dependence with uncomplicated withdrawal Current Visit: Yes Status: Acute (2) Cocaine dependence Current Visit: Yes Status: Acute (3) Paranoid schizophrenia Current Visit: Yes Status: Chronic (4) Nicotine dependence Current Visit: No Status: Chronic Qualifiers: Nicotine product type: cigarettes Substance use status: in withdrawal Qualified Code(s): F17.213 - Nicotine dependence, cigarettes, with withdrawal - Initial Treatment Plan Initial Treatment Plan: Psychoeducation provided. Detoxification in progress. Will order Zyprexa 5mg BID. Benefits and side effects discussed. Verbal consent given.
[2018-09-05] MEDS: OLANZapine 5 MG TABLET PO SCH ×2 (11:55→22:15)
--- NOTE | 2018-09-05 15:48 | PN ---
S CIWA - CIWA Score Nausea/Vomitin-No Nausea/No Vomiting Muscle Tremors: None Anxiety: 2 Agitation: 0-Normal Activity Paroxysmal Sweats: 3 Orientation: 0-Oriented Tacttile Disturbances: 3-Moderate Itch/Numb/Burn Auditory Disturbances: 2-Mild Harshness/Frighten Visual Disturbances: 0-None Headache: 0-None Present CIWA-Ar Total Score: 10 BHS Progress Note (SOAP) Subjective: Sweating, Itching, Constipation. Objective: PATIENT A & O X 3, OBSERVED AMBULATING ON UNIT. IN NO ACUTE DISTRESS. 09/05/18 15:49 Vital Signs Temperature 98.6 F 09/05/18 13:11 Pulse Rate 82 09/05/18 13:11 Respiratory Rate 20 09/05/18 13:11 Blood Pressure 135/80 09/05/18 13:11 O2 Sat by Pulse Oximetry (%) Laboratory Tests 09/05/18 09/05/18 09/05/18 05:45 05:45 05:45 WBC 4.1 RBC 5.12 Hgb 12.9 Hct 40.0 MCV 78.2 L MCH 25.2 L MCHC 32.2 RDW 15.3 Plt Count 210 D MPV 9.7 Sodium 140 Potassium 4.1 Chloride 106 Carbon Dioxide 28 Anion Gap 6 L BUN 18 Creatinine 1.1 Creat Clearance w eGFR > 60 Random Glucose 118 H Calcium 8.7 Total Bilirubin 0.5 AST 47 H ALT 46 Alkaline Phosphatase 140 H Total Protein 8.6 H Albumin 3.3 L RPR Titer Nonreactive LABS NOTED. Assessment: 09/05/18 15:49 WITHDRAWAL SYMPTOMS. Plan: CONTINUE DETOX. INCREASE DAILY PO FLUID INTAKE. PRN MOM FOR CONSTIPATION.
[2018-09-05] MEDS: THIAMINE HCL 100 MG TABLET (FP) PO SCH (22:16)
[2018-09-06] MEDS: chlordiazePOXIDE HCL 25 MG CAPSULE PO SCH ×2 (05:35→10:20)
[2018-09-06] MEDS: NICOTINE 21 MG/24 HOURS TOPICAL PATCH TD SCH (10:20)
[2018-09-06] MEDS: OLANZapine 5 MG TABLET PO SCH ×2 (10:20→22:12)
[2018-09-06] MEDS: amLODIPine BESYLATE 5 MG TABLET (FP) PO SCH (10:20)
[2018-09-06] MEDS: PRENATAL VITAMINS W/ FOLIC ACID TABLET (FP) PO SCH (10:21)
[2018-09-06] MEDS: IBUPROFEN 400 MG TABLET (FP) PO PRN ×2 (13:35→22:12)
--- NOTE | 2018-09-06 14:44 | PN ---
S CIWA - CIWA Score Nausea/Vomitin-No Nausea/No Vomiting Muscle Tremors: 3 Anxiety: 1-Mildly Anxious Agitation: 1-Slight > Activity Paroxysmal Sweats: No Perspiration Orientation: 0-Oriented Tacttile Disturbances: 2-Mild Itch/Numbness/Burn Auditory Disturbances: 0-None Visual Disturbances: 2-Mild Sensitivity Headache: 0-None Present CIWA-Ar Total Score: 9 BHS Progress Note (SOAP) Subjective: Tremors, Body Aches, Fatigue. Objective: PATIENT A & O X 3, OBSERVED AMBULATING ON UNIT. IN NO ACUTE DISTRESS. 09/06/18 14:42 Vital Signs Temperature 98.0 F 09/06/18 13:29 Pulse Rate 90 09/06/18 13:29 Respiratory Rate 18 09/06/18 13:29 Blood Pressure 124/76 09/06/18 13:29 O2 Sat by Pulse Oximetry (%) Laboratory Tests 09/05/18 09/05/18 09/05/18 05:45 05:45 05:45 WBC 4.1 RBC 5.12 Hgb 12.9 Hct 40.0 MCV 78.2 L MCH 25.2 L MCHC 32.2 RDW 15.3 Plt Count 210 D MPV 9.7 Sodium 140 Potassium 4.1 Chloride 106 Carbon Dioxide 28 Anion Gap 6 L BUN 18 Creatinine 1.1 Creat Clearance w eGFR > 60 Random Glucose 118 H Calcium 8.7 Total Bilirubin 0.5 AST 47 H ALT 46 Alkaline Phosphatase 140 H Total Protein 8.6 H Albumin 3.3 L RPR Titer Nonreactive LABS NOTED. Assessment: 09/06/18 14:43 WITHDRAWAL SYMPTOMS. Plan: CONTINUE DETOX. INCREASE DAILY PO FLUID INTAKE.
[2018-09-06] MEDS: chlordiazePOXIDE 5 MG CAPSULE PO SCH ×2 (17:20→22:12)
[2018-09-06] MEDS: THIAMINE HCL 100 MG TABLET (FP) PO SCH (22:12)
[2018-09-07] MEDS: chlordiazePOXIDE 5 MG CAPSULE PO SCH ×2 (05:47→10:23)
[2018-09-07] MEDS: PRENATAL VITAMINS W/ FOLIC ACID TABLET (FP) PO SCH (10:23)
[2018-09-07] MEDS: OLANZapine 5 MG TABLET PO SCH ×2 (10:23→22:42)
[2018-09-07] MEDS: NICOTINE 21 MG/24 HOURS TOPICAL PATCH TD SCH (10:23)
[2018-09-07] MEDS: amLODIPine BESYLATE 5 MG TABLET (FP) PO SCH (10:24)
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
[2018-09-07] MEDS: chlordiazePOXIDE HCL 10 MG CAPSULE PO SCH ×2 (17:12→22:42)
[2018-09-07] MEDS: THIAMINE HCL 100 MG TABLET (FP) PO SCH (22:42)
[2018-09-08] MEDS: chlordiazePOXIDE HCL 10 MG CAPSULE PO SCH ×2 (06:19→10:41)
--- NOTE | 2018-09-08 08:33 | DS ---
[facility] Detox Discharge Summary Admission Date: 09/04/18 Discharge Date: 09/08/18 - History Present History: Alcohol Dependence Additional Comments: 62 years old male admitted on 09/04/18 for alcohol withdrawal stabilization completed detox regimen aftercare [facility] - Physical Exam Results Vital Signs: Vital Signs Temperature 98.0 F 09/08/18 06:28 Pulse Rate 83 09/08/18 06:28 Respiratory Rate 18 09/08/18 06:28 Blood Pressure 137/75 09/08/18 06:28 O2 Sat by Pulse Oximetry (%) Pertinent Admission Physical Exam Findings: alcohol withdrawal sx Laboratory Last Values WBC 4.1 K/mm3 (4.0-10.0) 09/05/18 05:45 RBC 5.12 M/mm3 (4.00-5.60) 09/05/18 05:45 Hgb 12.9 GM/dL (11.7-16.9) 09/05/18 05:45 Hct 40.0 % (35.4-49) 09/05/18 05:45 MCV 78.2 fl (80-96) L 09/05/18 05:45 MCH 25.2 pg (25.7-33.7) L 09/05/18 05:45 MCHC 32.2 g/dl (32.0-35.9) 09/05/18 05:45 RDW 15.3 % (11.9-15.9) 09/05/18 05:45 Plt Count 210 K/MM3 (134-434) D 09/05/18 05:45 MPV 9.7 fl (7.5-11.1) 09/05/18 05:45 Sodium 140 mmol/L (136-145) 09/05/18 05:45 Potassium 4.1 mmol/L (3.5-5.1) 09/05/18 05:45 Chloride 106 mmol/L (98-107) 09/05/18 05:45 Carbon Dioxide 28 mmol/L (21-32) 09/05/18 05:45 Anion Gap 6 MMOL/L (8-16) L 09/05/18 05:45 BUN 18 mg/dL (7-18) 09/05/18 05:45 Creatinine 1.1 mg/dL (0.55-1.3) 09/05/18 05:45 Creat Clearance w eGFR > 60 (>60) 09/05/18 05:45 Random Glucose 118 mg/dL (74-106) H 09/05/18 05:45 Calcium 8.7 mg/dL (8.5-10.1) 09/05/18 05:45 Total Bilirubin 0.5 mg/dL (0.2-1) 09/05/18 05:45 AST 47 U/L (15-37) H 09/05/18 05:45 ALT 46 U/L (13-61) 09/05/18 05:45 Alkaline Phosphatase 140 U/L (45-117) H 09/05/18 05:45 Total Protein 8.6 g/dl (6.4-8.2) H 09/05/18 05:45 Albumin 3.3 g/dl (3.4-5.0) L 09/05/18 05:45 RPR Titer Nonreactive (NONREACTIVE) 09/05/18 05:45 lab noted - Treatment Hospital Course: Detox Protocol Followed, Detoxed Safely, Responded well, Discharged Condition Good, Rehab Referral Accepted Patient has Accepted a Rehab Referral to: [facility] - Medication Discharge Medications: Ambulatory Orders Olanzapine [Zyprexa] 20 mg PO HS 09/04/18 Sertraline HCl [Zoloft -] 50 mg PO DAILY 09/04/18 Amlodipine Besylate [Norvasc -] 5 mg PO DAILY #14 tablet 09/08/18 - Diagnosis (1) Alcohol dependence with uncomplicated withdrawal Current Visit: Yes Status: Acute (2) Hypertension Current Visit: Yes Status: Chronic Qualifiers: Hypertension type: essential hypertension Qualified Code(s): I10 - Essential (primary) hypertension (3) Nicotine dependence Current Visit: Yes Status: Acute Qualifiers: Nicotine product type: cigarettes Substance use status: in withdrawal Qualified Code(s): F17.213 - Nicotine dependence, cigarettes, with withdrawal (4) Weight loss Current Visit: Yes Status: Acute (5) GERD (gastroesophageal reflux disease) Current Visit: Yes Status: Chronic Qualifiers: Esophagitis presence: esophagitis presence not specified Qualified Code(s) : K21.9 - Gastro-esophageal reflux disease without esophagitis (6) Hepatitis C Current Visit: No Status: Chronic Qualifiers: Viral hepatitis chronicity: chronic Hepatic coma status: without hepatic coma Qualified Code(s): B18.2 - Chronic viral hepatitis C - AMA Did Patient Leave Against Medical Advice: No
[2018-09-08] MEDS: NICOTINE 21 MG/24 HOURS TOPICAL PATCH TD SCH (10:38)
[2018-09-08] MEDS: OLANZapine 5 MG TABLET PO SCH (10:41)
[2018-09-08] MEDS: amLODIPine BESYLATE 5 MG TABLET (FP) PO SCH (10:41)
[2018-09-08] MEDS: PRENATAL VITAMINS W/ FOLIC ACID TABLET (FP) PO SCH (10:41)
[2018-09-08 14:15] VITALS: BP 115/77; PULSE 98; TEMP 98.3
== END 2018-09-08 13:30 | disposition other institution (70) | DRG 774 ==
LOC: YASAS 08:59 → Y3N 13:28
PROC: HZ2ZZZZ Detoxification Services for Substance Abuse Treatment (ICD-10-PCS; principal; 2018-09-04)
DX: F10.230 Alcohol dependence with withdrawal, uncomplicated (principal); F14.20 Cocaine dependence, uncomplicated; F17.213 Nicotine dependence, cigarettes, with withdrawal; F20.1 Disorganized schizophrenia; F20.0 Paranoid schizophrenia; I10 Essential (primary) hypertension; K21.9 Gastro-esophageal reflux disease without esophagitis; B18.2 Chronic viral hepatitis C; K08.109 Complete loss of teeth, unspecified cause, unspecified class; Z88.8 Allergy status to other drugs, medicaments and biological substances
CPT/HCPCS: 36415; 80053; 85027; 86593

== ENCOUNTER 2018-09-08 13:46 | Inpatient (IN) | payer OTHER ==
[2018-09-08] MEDS ORDERED: P-EPHED 60MG/TRIPROLIDI 2.5MG TABLET PO PRN (14:50)
[2018-09-08] MEDS ORDERED: ACETAMINOPHEN 325 MG TABLET (FP) PO PRN (14:50)
[2018-09-08] MEDS ORDERED: NICOTINE POLACRILEX 2 MG GUM BUC PRN (14:50)
[2018-09-08] MEDS ORDERED: MAG HYDROX/AL HYDROX/SIMETH 30 ML UNIT-DOSE CUP PO PRN (14:50)
[2018-09-08] MEDS ORDERED: LOPERAMIDE HCL 2 MG CAPSULE PO PRN (14:50)
[2018-09-08] MEDS ORDERED: guaiFENesin/D-METHORPHAN HB 10 ML UNIT-DOSE CUPS PO PRN (14:50)
[2018-09-08] MEDS ORDERED: MAGNESIUM HYDROX 2400MG/30ML ORAL SUSPENSION 30 ML CUP PO PRN (14:50)
[2018-09-08] MEDS ORDERED: MENTHOL/PHENOL 1 EACH UD MM PRN (14:50)
[2018-09-08] MEDS ORDERED: MAGNESIUM CITRATE 300 ML BOTTLE PO PRN (14:50)
--- NOTE | 2018-09-08 14:50 | HP ---
[facility] Rehab Assess/Revision - Admission History Admitted to Rehab from: [facility] Date of Admission to Rehab: 09/09/18 - Findings Detox History & Physical reviewed: Yes Concur with findings: Yes Comments/Additional Findings: transferred from detox to rehab admission as per protocol Inpatient Rehab Admission - Initial Determination Are CD services needed?: Yes Free of communicable disease: Yes Not in need of hospitalization: Yes - Rehab Admission Criteria Previous failed treatment: Yes Poor recovery environment: Yes Comorbidities: Yes Lacks judgement: No Patient is meeting Inpatient Rehab admission criteria:: Yes
--- NOTE | 2018-09-08 16:17 | HP ---
Psychiatrist Admission - Data Date of interview: 09/08/18 Admission source: [address] [place] [address] Identifying data: This is the second admission to inpatient rehabilitation for this 62 years old AA father of 6 ,homeless,[facility]. Psychiatric History: First contact with psychiatrist was in 1974 in [facility] after first psychotic episode.He was dx with Schizophrenia.He reports 10 more psychiatric hospitalizations.Patient sees psychiatrist at [facility] in [facility].One suicidal attempt at the age of 41 (DOD).Current medications: Zyprexa 20 mg po hs and Zoloft 50 mg po daily. Physical/Sexual Abuse/Trauma History: denies Allergies/Adverse Reactions: Allergies Allergy/AdvReac Type Severity Reaction Status Date / Time haloperidol [From Haldol] AdvReac Severe stiffness Verified 09/04/18 10:55 haloperidol lactate AdvReac Severe stiffness Verified 09/04/18 10:55 [From Haldol] risperidone [From Risperdal] AdvReac Severe stiffness Verified 09/04/18 10:55 Concur with the findings of this exam: Yes - Substance Abuse/Tx History Hx Alcohol Use: Yes (reports drinking since 24 yo,1 pint of vodka,5-6 beers daily) Hx Substance Use: Yes (,1 bag daily) Substance Use Type: Alcohol, Cocaine Hx Substance Use Treatment: Yes (patient completed this program on in apr 2018) Mental Status Exam - Mental Status Exam Alert and Oriented to: Time, Place, Person Cognitive Function: Grossly Intact Patient Appearance: Unkempt Mood: Anxious Affect: Mood Congruent, Labile Patient Behavior: Cooperative Speech Pattern: Clear Voice Loudness: Normal Thought Process: Goal Oriented Thought Disorder: Not Present Hallucinations: Denies Suicidal Ideation: Denies Homicidal Ideation: Denies Insight/Judgement: Fair Sleep: Fair Appetite: Good Muscle strength/Tone: Normal Gait/Station: Normal Psychiatric Findings - Problem List ([place] 1, 2,3) (1) Alcohol dependence Current Visit: Yes Status: Chronic (2) Nicotine dependence Current Visit: Yes Status: Chronic Qualifiers: Nicotine product type: cigarettes Substance use status: in withdrawal Qualified Code(s): F17.213 - Nicotine dependence, cigarettes, with withdrawal (3) Hypertension Current Visit: Yes Status: Chronic Qualifiers: Hypertension type: essential hypertension Qualified Code(s): I10 - Essential (primary) hypertension (4) Hepatitis C Current Visit: Yes Status: Chronic Qualifiers: Viral hepatitis chronicity: chronic Hepatic coma status: without hepatic coma Qualified Code(s): B18.2 - Chronic viral hepatitis C (5) Schizophrenia Current Visit: Yes Status: Chronic Qualifiers: Schizophrenia type: disorganized schizophrenia Qualified Code(s): F20.1 - Disorganized schizophrenia Comment: Self reports. (6) H/O abdominal surgery Current Visit: Yes Status: Chronic - Initial Treatment Plan Initial Treatment Plan: Continue Zyprexa 20 mg po hs and Zoloft 50 mg po daily.Will monitor progress.
[2018-09-08] MEDS: THIAMINE HCL 100 MG TABLET (FP) PO SCH (21:03)
[2018-09-08] MEDS: OLANZapine 10 MG TABLET PO SCH (21:03)
[2018-09-08] MEDS ORDERED: MELATONIN 5 MG TABLETS PO PRN (22:00)
--- NOTE | 2018-09-09 06:10 | HP ---
Psychiatrist Admission - Data Date of interview: 09/09/18 Admission source: Self-referred Identifying data: This is the third [facility] admission for this 62 years old Black male, father of 6 children, unemployed on SSI, homeless Medical History: Significant for hypertension, hepatitis C and a history of surgery for perforated peptic ulcer in 1991. Smokes cigarettes 1ppd Psychiatric History: Patient is well known to insurance underwriter from previous admissions to this facility. Reports history of Paranoid Schizophrenia diagnosed at age 21 and has had multiple psychiatric admissions to hospitals [facility] in [place] & [facility]([place], [place], [facility], [facility]). Most recent admission was for 2 weeks to [facility] . He was discharged on Apr 11, 2018 on Zyprexa 10 mg po HS and referred to this facility for inpatient rehab. Denies experiencing psychotic, manic or depressive symptoms as well as S/ H ideations at this time. However, reports feeling anxious and sleeping poorly Physical/Sexual Abuse/Trauma History: Denies history of verbal, physical or sexual abuse as well as DV relationship Additional Comment: Reports history multiple previous misdemeanor arrests. No probation at present Vital Signs: Vital Signs - 24 hr 09/09/18 09/09/18 00:41 03:30 Respiratory 18 18 Rate Allergies/Adverse Reactions: Allergies Allergy/AdvReac Type Severity Reaction Status Date / Time haloperidol [From Haldol] AdvReac Severe stiffness Verified 09/04/18 10:55 haloperidol lactate AdvReac Severe stiffness Verified 09/04/18 10:55 [From Haldol] risperidone [From Risperdal] AdvReac Severe stiffness Verified 09/04/18 10:55 Date of last physical exam: 09/04/18 Concur with the findings of this exam: Yes - Substance Abuse/Tx History Hx Alcohol Use: Yes Hx Substance Use: Yes Substance Use Type: Alcohol (Started drinking alcohol at age 24, consumes one pint of liquor & 5-6x 16oz of beer daily. Last drank on 09/02/18), Cocaine ( Started smoking crack cocaine at age 33, consumes one bag daily. Last smoked on 09/02/18) Hx Substance Use Treatment: Yes (8 previous inpt detox & 2 inpt rehab) Psychiatric Findings - Problem List ([place] 1, 2,3) (1) Alcohol dependence Current Visit: Yes Status: Acute (2) Cocaine dependence Current Visit: No Status: Acute (3) Nicotine dependence Current Visit: Yes Status: Chronic Qualifiers: Nicotine product type: cigarettes Substance use status: in withdrawal Qualified Code(s): F17.213 - Nicotine dependence, cigarettes, with withdrawal (4) Paranoid schizophrenia Current Visit: No Status: Chronic
[2018-09-09] MEDS: PRENATAL VITAMINS W/ FOLIC ACID TABLET (FP) PO SCH (09:53)
[2018-09-09] MEDS: amLODIPine BESYLATE 5 MG TABLET (FP) PO SCH (09:53)
[2018-09-09] MEDS: SERTRALINE HCL 50 MG TABLET (FP) PO SCH (09:53)
--- NOTE | 2018-09-09 10:19 | PN ---
[facility] Progress Note Note: PT ADMITTED FROM DETOX YESTERDAY C/O LEFT KNEE PAIN. PT REPORTS IT'S CHRONIC PAIN AND REPORTS PAST TRUAMA TO LEFT LEG. PT USES [facility] FOR AMBULATION. PT REPORTS HE GOES TO [facility] TO SEE HIS PSYCH/MEDICAL DOCTORS. SAYS "I DON'T THE NAMES OF THE DOCTORS, I DON'T KNOW THEIR NAMES, THEY FOREIGNERS". Vital Signs - 24 hr 09/09/18 09/09/18 09/09/18 00:41 03:30 07:08 Temperature 97.0 F L Pulse Rate 89 Respiratory 18 18 16 Rate Blood Pressure 131/81 BOTH LEGS ;MULTIPLE VARICOSE VEINS RUNNING FROM KNEE DOWN--RIGHT LEG>RIGHT LEG. POSITIVE LOWER LEG STRETCH WITH PAIN SCALE 9/10. DI:CHRONIC KNEE PAIN PLAN;ANALGESIC BALM ON AFFECTED KNEE DIRECTED LIOR BANDAGE TO LEFT KNEE PRN.
[2018-09-09] MEDS: METHYL SALICYLATE/MENTHOL OINT 30 GM TUBE TP SCH ×2 (10:46→21:07)
[2018-09-09] MEDS: THIAMINE HCL 100 MG TABLET (FP) PO SCH (21:07)
[2018-09-09] MEDS: OLANZapine 10 MG TABLET PO SCH (21:07)
[2018-09-10] MEDS: IBUPROFEN 400 MG TABLET (FP) PO PRN (06:42)
[2018-09-10] MEDS: SERTRALINE HCL 50 MG TABLET (FP) PO SCH (09:36)
[2018-09-10] MEDS: PRENATAL VITAMINS W/ FOLIC ACID TABLET (FP) PO SCH (09:36)
[2018-09-10] MEDS: amLODIPine BESYLATE 5 MG TABLET (FP) PO SCH (09:36)
[2018-09-10] MEDS: NICOTINE 14 MG/24 HOURS TOPICAL PATCH TD PRN (09:36)
[2018-09-10] MEDS: METHYL SALICYLATE/MENTHOL OINT 30 GM TUBE TP SCH ×2 (09:37→21:04)
[2018-09-10] MEDS: THIAMINE HCL 100 MG TABLET (FP) PO SCH (21:03)
[2018-09-10] MEDS: OLANZapine 10 MG TABLET PO SCH (21:03)
[2018-09-11] MEDS: IBUPROFEN 400 MG TABLET (FP) PO PRN (06:28)
[2018-09-11] MEDS: SERTRALINE HCL 50 MG TABLET (FP) PO SCH (09:52)
[2018-09-11] MEDS: PRENATAL VITAMINS W/ FOLIC ACID TABLET (FP) PO SCH (09:52)
[2018-09-11] MEDS: amLODIPine BESYLATE 5 MG TABLET (FP) PO SCH (09:52)
[2018-09-11] MEDS: METHYL SALICYLATE/MENTHOL OINT 30 GM TUBE TP SCH ×2 (09:53→21:01)
[2018-09-11] MEDS ORDERED: FLU VACCINE QUAD 60 MCG/0.5 ML (MDV 18-19) IM ONE (12:54)
[2018-09-11] MEDS: THIAMINE HCL 100 MG TABLET (FP) PO SCH (21:01)
[2018-09-11] MEDS: OLANZapine 10 MG TABLET PO SCH (21:01)
[2018-09-12] MEDS: PRENATAL VITAMINS W/ FOLIC ACID TABLET (FP) PO SCH (09:48)
[2018-09-12] MEDS: IBUPROFEN 400 MG TABLET (FP) PO PRN (09:48)
[2018-09-12] MEDS: amLODIPine BESYLATE 5 MG TABLET (FP) PO SCH (09:48)
[2018-09-12] MEDS: SERTRALINE HCL 50 MG TABLET (FP) PO SCH (09:48)
[2018-09-12] MEDS: METHYL SALICYLATE/MENTHOL OINT 30 GM TUBE TP SCH ×2 (09:50→21:07)
[2018-09-12] MEDS: NICOTINE 14 MG/24 HOURS TOPICAL PATCH TD PRN (09:52)
[2018-09-12] MEDS: OLANZapine 10 MG TABLET PO SCH (21:06)
[2018-09-12] MEDS: THIAMINE HCL 100 MG TABLET (FP) PO SCH (21:06)
[2018-09-13] MEDS: SERTRALINE HCL 50 MG TABLET (FP) PO SCH (09:36)
[2018-09-13] MEDS: PRENATAL VITAMINS W/ FOLIC ACID TABLET (FP) PO SCH (09:36)
[2018-09-13] MEDS: amLODIPine BESYLATE 5 MG TABLET (FP) PO SCH (09:36)
[2018-09-13] MEDS: METHYL SALICYLATE/MENTHOL OINT 30 GM TUBE TP SCH ×2 (09:36→21:09)
[2018-09-13] MEDS: NICOTINE 14 MG/24 HOURS TOPICAL PATCH TD PRN (12:30)
[2018-09-13] MEDS: THIAMINE HCL 100 MG TABLET (FP) PO SCH (21:08)
[2018-09-13] MEDS: OLANZapine 10 MG TABLET PO SCH (21:09)
[2018-09-14] MEDS: PRENATAL VITAMINS W/ FOLIC ACID TABLET (FP) PO SCH (09:43)
[2018-09-14] MEDS: METHYL SALICYLATE/MENTHOL OINT 30 GM TUBE TP SCH ×2 (09:43→21:08)
[2018-09-14] MEDS: amLODIPine BESYLATE 5 MG TABLET (FP) PO SCH (09:43)
[2018-09-14] MEDS: SERTRALINE HCL 50 MG TABLET (FP) PO SCH (11:52)
[2018-09-14] MEDS: THIAMINE HCL 100 MG TABLET (FP) PO SCH (21:07)
[2018-09-14] MEDS: OLANZapine 10 MG TABLET PO SCH (21:07)
[2018-09-14] MEDS: IBUPROFEN 400 MG TABLET (FP) PO PRN (21:07)
[2018-09-15] MEDS: IBUPROFEN 400 MG TABLET (FP) PO PRN (06:38)
[2018-09-15] MEDS: PRENATAL VITAMINS W/ FOLIC ACID TABLET (FP) PO SCH (09:30)
[2018-09-15] MEDS: amLODIPine BESYLATE 5 MG TABLET (FP) PO SCH (09:30)
[2018-09-15] MEDS: METHYL SALICYLATE/MENTHOL OINT 30 GM TUBE TP SCH ×2 (09:31→21:14)
--- NOTE | 2018-09-15 10:42 | PN ---
[facility] Progress Note Note: DETOX LAB REVIEWED. REPEAT CMP; INR IN A.M ALERT O X 3. OOB;NAD CONTINUE REHAB
[2018-09-15] MEDS: SERTRALINE HCL 50 MG TABLET (FP) PO SCH (12:32)
[2018-09-15] MEDS: NICOTINE 14 MG/24 HOURS TOPICAL PATCH TD PRN (12:58)
[2018-09-15] MEDS: OLANZapine 10 MG TABLET PO SCH (21:13)
[2018-09-15] MEDS: THIAMINE HCL 100 MG TABLET (FP) PO SCH (21:13)
[2018-09-16] MEDS: IBUPROFEN 400 MG TABLET (FP) PO PRN (00:42)
[2018-09-16] MEDS: METHYL SALICYLATE/MENTHOL OINT 30 GM TUBE TP SCH ×2 (09:41→21:09)
[2018-09-16] MEDS: NICOTINE 14 MG/24 HOURS TOPICAL PATCH TD PRN (09:41)
[2018-09-16] MEDS: SERTRALINE HCL 50 MG TABLET (FP) PO SCH (09:41)
[2018-09-16] MEDS: PRENATAL VITAMINS W/ FOLIC ACID TABLET (FP) PO SCH (09:41)
[2018-09-16] MEDS: amLODIPine BESYLATE 5 MG TABLET (FP) PO SCH (09:41)
[2018-09-16 13:45] LABS: ALBUMIN 3.4 g/dl (3.4-5.0); ALK PHOS 215 U/L (45-117); ANION GAP 8 MMOL/L (8-16); BILIRUBIN,TOTAL 0.3 mg/dL (0.2-1); BLOOD UREA NITROGEN 17 mg/dL (7-18); CALCIUM 8.8 mg/dL (8.5-10.1); CHLORIDE 97 mmol/L (98-107); CO2 31 mmol/L (21-32); CREATININE 0.8 mg/dL (0.55-1.3); GLUCOSE,RANDOM 268 mg/dL (74-106); POTASSIUM 4.1 mmol/L (3.5-5.1); SGOT/AST 41 U/L (15-37); SGPT/ALT 59 U/L (13-61); SODIUM 136 mmol/L (136-145); TOT PROT 8.6 g/dl (6.4-8.2)
[2018-09-16 13:48] LABS: INR 1.03 (0.83-1.09); PROTHROMBIN TIME (PATIENT) 12.2 SEC (9.7-13.0)
[2018-09-16] MEDS: THIAMINE HCL 100 MG TABLET (FP) PO SCH (21:08)
[2018-09-16] MEDS: OLANZapine 10 MG TABLET PO SCH (21:08)
--- NOTE | 2018-09-17 09:40 | PN ---
[facility] Progress Note Note: LAB REVIEWED CMP Sodium 136 mmol/L (136-145) 09/16/18 10:08 Potassium 4.1 mmol/L (3.5-5.1) 09/16/18 10:08 Chloride 97 mmol/L (98-107) L 09/16/18 10:08 Carbon Dioxide 31 mmol/L (21-32) 09/16/18 10:08 Anion Gap 8 MMOL/L (8-16) 09/16/18 10:08 BUN 17 mg/dL (7-18) 09/16/18 10:08 Creatinine 0.8 mg/dL (0.55-1.3) 09/16/18 10:08 Creat Clearance w eGFR > 60 (>60) 09/16/18 10:08 Random Glucose 268 mg/dL (74-106) H 09/16/18 10:08 Calcium 8.8 mg/dL (8.5-10.1) 09/16/18 10:08 Total Bilirubin 0.3 mg/dL (0.2-1) 09/16/18 10:08 AST 41 U/L (15-37) H 09/16/18 10:08 ALT 59 U/L (13-61) 09/16/18 10:08 Alkaline Phosphatase 215 U/L (45-117) H 09/16/18 10:08 Total Protein 8.6 g/dl (6.4-8.2) H 09/16/18 10:08 Albumin 3.4 g/dl (3.4-5.0) 09/16/18 10:08 Laboratory Tests 09/16/18 09/16/18 10:08 10:08 PT with INR 12.20 INR 1.03 Sodium 136 Potassium 4.1 Chloride 97 L Carbon Dioxide 31 Anion Gap 8 BUN 17 Creatinine 0.8 Creat Clearance w eGFR > 60 Random Glucose 268 H Calcium 8.8 Total Bilirubin 0.3 AST 41 H ALT 59 Alkaline Phosphatase 215 H Total Protein 8.6 H Albumin 3.4 RANDOM GLUCOSE LEVEL NOTED. PT ISSA HAD SLIGHT ELEVATED GLC LEVELS IN PAST ADMISSIONS ON/OFF. PT REPORTS HE HAS BEEN GIVEN INSULIN SHOTS IN [facility] IN THE PAST("WINTER 2017") BUT IS NOT ON ANY MEDICATION FOR BLOOD SUGAR SINCE THEN. PT IS A POOR HISTORIAN AND UNABLE TO GIVE DETAILED INFORMATION ON THIS. SPOKE TO PT WHO STATES HE WILL GO TO FOLLOW UP AT [facility] FOR MEDICAL MANAGEMENT AFTER REHAB. PLAN: WILL MONITOR BLOOD SUGAR BID AND RE-EVALUATE FREQUENCY WHILE IN REHAB. INSULIN COVERAGE IF NEEDED PT WILL FOLLOW UP AT [facility] AFTER REHAB FOR MEDICAL MANAGEMENT.
[2018-09-17] MEDS: amLODIPine BESYLATE 5 MG TABLET (FP) PO SCH (09:56)
[2018-09-17] MEDS: PRENATAL VITAMINS W/ FOLIC ACID TABLET (FP) PO SCH (09:56)
[2018-09-17] MEDS: SERTRALINE HCL 50 MG TABLET (FP) PO SCH (09:56)
[2018-09-17] MEDS: METHYL SALICYLATE/MENTHOL OINT 30 GM TUBE TP SCH ×2 (09:56→21:08)
[2018-09-17] MEDS: NICOTINE 14 MG/24 HOURS TOPICAL PATCH TD PRN (09:57)
--- NOTE | 2018-09-17 17:01 | PN ---
[facility] Progress Note Note: insulin s/s ordered to cover BID BGM being done by RN.
[2018-09-17] MEDS ORDERED: INSULIN (NOVOLOG) ASPART 100 UNITS/ML 10ML VIAL SQ ONE (17:45)
[2018-09-17] MEDS: OLANZapine 10 MG TABLET PO SCH (21:08)
[2018-09-17] MEDS: THIAMINE HCL 100 MG TABLET (FP) PO SCH (21:08)
[2018-09-18] MEDS ORDERED: INSULIN (NOVOLOG) ASPART 100 UNITS/ML 10ML VIAL ONE (06:01)
[2018-09-18] MEDS ORDERED: INSULIN (NOVOLOG) ASPART 100 UNITS/ML 10ML VIAL SQ SCH (07:00)
[2018-09-18] MEDS: amLODIPine BESYLATE 5 MG TABLET (FP) PO SCH (09:23)
[2018-09-18] MEDS: SERTRALINE HCL 50 MG TABLET (FP) PO SCH (10:08)
[2018-09-18] MEDS: PRENATAL VITAMINS W/ FOLIC ACID TABLET (FP) PO SCH (10:08)
[2018-09-18] MEDS: METHYL SALICYLATE/MENTHOL OINT 30 GM TUBE TP SCH ×2 (10:08→21:08)
[2018-09-18] MEDS: NICOTINE 14 MG/24 HOURS TOPICAL PATCH TD PRN (10:09)
[2018-09-18] MEDS: INSULIN SLIDING SCALE (NOVOLOG) 1 VIAL SQ SCH (16:41)
[2018-09-18] MEDS: OLANZapine 10 MG TABLET PO SCH (21:07)
[2018-09-18] MEDS: THIAMINE HCL 100 MG TABLET (FP) PO SCH (21:08)
[2018-09-19] MEDS: INSULIN SLIDING SCALE (NOVOLOG) 1 VIAL SQ SCH ×2 (07:05→16:55)
[2018-09-19] MEDS ORDERED: INSULIN (NOVOLOG) ASPART 100 UNITS/ML 10ML VIAL ONE ×2 (07:05→16:53)
[2018-09-19] MEDS: amLODIPine BESYLATE 5 MG TABLET (FP) PO SCH (09:54)
[2018-09-19] MEDS: METHYL SALICYLATE/MENTHOL OINT 30 GM TUBE TP SCH ×2 (09:54→22:31)
[2018-09-19] MEDS: PRENATAL VITAMINS W/ FOLIC ACID TABLET (FP) PO SCH (09:54)
[2018-09-19] MEDS: SERTRALINE HCL 50 MG TABLET (FP) PO SCH (09:54)
[2018-09-19] MEDS: THIAMINE HCL 100 MG TABLET (FP) PO SCH (21:00)
[2018-09-19] MEDS: OLANZapine 10 MG TABLET PO SCH (21:00)
[2018-09-20] MEDS ORDERED: INSULIN (NOVOLOG) ASPART 100 UNITS/ML 10ML VIAL ONE ×3 (06:09→20:51)
[2018-09-20] MEDS: INSULIN SLIDING SCALE (NOVOLOG) 1 VIAL SQ SCH ×2 (06:09→16:38)
[2018-09-20] MEDS: IBUPROFEN 400 MG TABLET (FP) PO PRN (07:04)
[2018-09-20] MEDS ORDERED: PT OWN MED DRAWER 7, Y5N ONE (09:08)
[2018-09-20] MEDS: PRENATAL VITAMINS W/ FOLIC ACID TABLET (FP) PO SCH (09:33)
[2018-09-20] MEDS: SERTRALINE HCL 50 MG TABLET (FP) PO SCH (09:33)
[2018-09-20] MEDS: amLODIPine BESYLATE 5 MG TABLET (FP) PO SCH (09:33)
[2018-09-20] MEDS: METHYL SALICYLATE/MENTHOL OINT 30 GM TUBE TP SCH ×2 (09:33→21:04)
[2018-09-20] MEDS: OLANZapine 10 MG TABLET PO SCH (21:03)
[2018-09-20] MEDS: THIAMINE HCL 100 MG TABLET (FP) PO SCH (21:03)
[2018-09-21] MEDS: INSULIN SLIDING SCALE (NOVOLOG) 1 VIAL SQ SCH ×2 (06:36→16:38)
[2018-09-21] MEDS: SERTRALINE HCL 50 MG TABLET (FP) PO SCH (09:31)
[2018-09-21] MEDS: PRENATAL VITAMINS W/ FOLIC ACID TABLET (FP) PO SCH (09:31)
[2018-09-21] MEDS: amLODIPine BESYLATE 5 MG TABLET (FP) PO SCH (09:32)
[2018-09-21] MEDS: METHYL SALICYLATE/MENTHOL OINT 30 GM TUBE TP SCH ×2 (09:34→21:01)
[2018-09-21] MEDS: OLANZapine 10 MG TABLET PO SCH (21:01)
[2018-09-21] MEDS: THIAMINE HCL 100 MG TABLET (FP) PO SCH (21:01)
[2018-09-21] MEDS: IBUPROFEN 400 MG TABLET (FP) PO PRN (23:51)
[2018-09-22 06:36] VITALS: BP 116/84; PULSE 90; TEMP 97.8
[2018-09-22] MEDS ORDERED: INSULIN (NOVOLOG) ASPART 100 UNITS/ML 10ML VIAL ONE (06:55)
[2018-09-22] MEDS: INSULIN SLIDING SCALE (NOVOLOG) 1 VIAL SQ SCH (07:00)
--- NOTE | 2018-09-22 09:49 | PN ---
[facility] Progress Note Note: PT COMPLETED REHAB TODAY AND [facility] PER COUNSELOR JULIO CÉSAR. PT REPORTS HE WILL FOLLOW UP WITH PCP AT [facility] TO ADDRESS HIS MEDICAL PROBLEMS. Vital Signs 09/22/18 09/22/18 03:30 06:35 Temperature 97.8 F Pulse Rate 90 Respiratory 18 16 Rate Blood Pressure 116/84 Laboratory Tests 09/16/18 09/16/18 09/17/18 10:08 10:08 16:41 PT with INR 12.20 INR 1.03 Sodium 136 Potassium 4.1 Chloride 97 L Carbon Dioxide 31 Anion Gap 8 BUN 17 Creatinine 0.8 Creat Clearance w eGFR > 60 POC Glucometer 298 Random Glucose 268 H Calcium 8.8 Total Bilirubin 0.3 AST 41 H ALT 59 Alkaline Phosphatase 215 H Total Protein 8.6 H Albumin 3.4 09/18/18 09/18/18 09/19/18 05:58 16:38 07:00 PT with INR INR Sodium Potassium Chloride Carbon Dioxide Anion Gap BUN Creatinine Creat Clearance w eGFR POC Glucometer 227 299 367 Random Glucose Calcium Total Bilirubin AST ALT Alkaline Phosphatase Total Protein Albumin 09/19/18 09/20/18 09/20/18 16:48 06:07 16:36 PT with INR INR Sodium Potassium Chloride Carbon Dioxide Anion Gap BUN Creatinine Creat Clearance w eGFR POC Glucometer 328 258 330 Random Glucose Calcium Total Bilirubin AST ALT Alkaline Phosphatase Total Protein Albumin 09/21/18 09/21/18 09/22/18 06:36 16:36 06:51 PT with INR INR Sodium Potassium Chloride Carbon Dioxide Anion Gap BUN Creatinine Creat Clearance w eGFR POC Glucometer 211 302 239 Random Glucose Calcium Total Bilirubin AST ALT Alkaline Phosphatase Total Protein Albumin NAD PLAN:FOLLOW UP WITH PCP AT [facility] 1 WEEK AFTER REHAB. FOLLOW UP WITH CD TREATMENT AFTERCARE AT [facility]. COPY OF LAB RESULT GIVEN TO PT FOR PCP.
[2018-09-22] MEDS: METHYL SALICYLATE/MENTHOL OINT 30 GM TUBE TP SCH (10:06)
[2018-09-22] MEDS: SERTRALINE HCL 50 MG TABLET (FP) PO SCH (10:06)
[2018-09-22] MEDS: PRENATAL VITAMINS W/ FOLIC ACID TABLET (FP) PO SCH (10:06)
[2018-09-22] MEDS: amLODIPine BESYLATE 5 MG TABLET (FP) PO SCH (10:21)
== END 2018-09-22 10:20 | disposition home or self-care (01) | DRG 772 ==
LOC: YASAS 13:46 → Y5N 13:47
PROVIDERS: ADMIT Psychiatry & Neurology Psychiatry; ATTEND Psychiatry & Neurology Psychiatry
PROC: HZ42ZZZ Group Counseling for Substance Abuse Treatment, Cognitive-Behavioral (ICD-10-PCS; principal; 2018-09-08)
DX: F10.20 Alcohol dependence, uncomplicated (principal); F17.213 Nicotine dependence, cigarettes, with withdrawal; F20.1 Disorganized schizophrenia; I10 Essential (primary) hypertension; I83.91 Asymptomatic varicose veins of right lower extremity; B18.2 Chronic viral hepatitis C; M25.562 Pain in left knee; G89.29 Other chronic pain; R73.9 Hyperglycemia, unspecified; R26.89 Other abnormalities of gait and mobility; Z99.89 Dependence on other enabling machines and devices; Z91.5 Personal history of self-harm
CPT/HCPCS: 36415; 80053; 82962; 85610; 90688; G0008

== ENCOUNTER 2018-11-01 11:59 | Inpatient (IN) | payer OTHER ==
[2018-11-01 14:08] VITALS: BMI 24.6
--- NOTE | 2018-11-01 14:17 | HP ---
CIWA Score Nausea/Vomitin-Mild Nausea/No Vomiting Muscle Tremors: 4-Moderate,w/Arms Extend Anxiety: 4-Mod. Anxious/Guarded Agitation: 4-Moderately Restless Paroxysmal Sweats: 3 Orientation: 0-Oriented Tacttile Disturbances: 0-None Auditory Disturbances: 0-None Visual Disturbances: 0-None Headache: 0-None Present CIWA-Ar Total Score: 16 - Admission Criteria OASAS Guidelines: Admission for Medically Managed Detox: Requires at least one of the followin. CIWA greater than 12 2. Seizures within the past 24 hours 3. Delirium tremens within the past 24 hours 4. Hallucinations within the past 24 hours 5. Acute intervention needed for co occurring medical disorder 6. Acute intervention needed for co occurring psychiatric disorder 7. Severe withdrawal that cannot be handled at a lower level of care (continued vomiting, continued diarrhea, abnormal vital signs) requiring intravenous medication and/or fluids 8. Admission ROS S - HPI Chief Complaint: I am here to detox and get my life clean. Allergies/Adverse Reactions: Allergies Allergy/AdvReac Type Severity Reaction Status Date / Time haloperidol [From Haldol] AdvReac Severe stiffness Verified 09/04/18 10:55 haloperidol lactate AdvReac Severe stiffness Verified 09/04/18 10:55 [From Haldol] risperidone [From Risperdal] AdvReac Severe stiffness Verified 09/04/18 10:55 History of Present Illness: pt is a 62yrold male with a history of alcohol and crack/cocaine dependence seeking detox for treatment. Exam Limitations: No Limitations - Ebola screening Have you traveled outside of the country in the last 21 days: No (N) Have you had contact with anyone from an Ebola affected area: No Have you been sick,other than usual withdrawal symptoms: No Do you have a fever: No - Review of Systems Constitutional: Chills, Diaphoresis, Night Sweats, Changes in sleep EENT: reports: Tearing, Nose Congestion Respiratory: reports: No Symptoms reported Cardiac: reports: Syncope GI: reports: Poor Appetite, Poor Fluid Intake : reports: No Symptoms Reported Musculoskeletal: reports: Joint Pain (chroinic left knee pain) Integumentary: reports: Other Neuro: reports: Tingling, Tremors Endocrine: reports: Flushing, Intolerance to Cold Hematology: reports: No Symptoms Reported Psychiatric: reports: Mood/Affect Appropiate, Orientated x3, Agitated, Anxious Other Systems: Reviewed and Negative Patient History - Patient Medical History Hx Anemia: No Hx Asthma: No Hx Chronic Obstructive Pulmonary Disease (COPD): No Hx Cancer: No Hx Cardiac Disorders: No Hx Congestive Heart Failure: No Hx Hypertension: Yes (norvasc 5mg ) Hx Hypercholesterolemia: No Hx Pacemaker: No HX Cerebrovascular Accident: No Hx Seizures: No Hx Dementia: No Hx Diabetes: No Hx Gastrointestinal Disorders: No Hx Liver Disease: No Hx Genitourinary Disorders: No Hx Sexually Transmitted Disorders: No Hx Renal Disease (ESRD): No Hx Thyroid Disease: No Hx Human Immunodeficiency Virus (HIV): No (NEGATIVE HX;last 2017) Hx Hepatitis C: Yes (NO TREATMENT) Hx Depression: Yes Hx Suicide Attempt: No (pt denies) Hx Bipolar Disorder: No Hx Schizophrenia: Yes (zoloft 50mg and zyprexa 20mg) - Patient Surgical History Past Surgical History: Yes Hx Neurologic Surgery: No Hx Cataract Extraction: No Hx Cardiac Surgery: No Hx Lung Surgery: No Hx Breast Surgery: No Hx Breast Biopsy: No Hx Abdominal Surgery: Yes (abdomen perforated peptic ulcer in 1991) Hx Appendectomy: No Hx Cholecystectomy: No Hx Genitourinary Surgery: No Hx Section: No Hx Orthopedic Surgery: No Hx Hysterectomy: No Anesthesia Reaction: No - PPD History Previous Implant?: Yes Documented Results: Negative w/proof Date: 04/13/18 Results: 0mm PPD to be Administered?: No - Reproductive History Patient is a Female of Child Bearing Age (11 -55 yrs old): No - Smoking Cessation Smoking history: Current every day smoker Have you smoked in the past 12 months: Yes Aproximately how many cigarettes per day: 20 Cigars Per Day: 0 Hx Chewing Tobacco Use: No Initiated information on smoking cessation: Yes 'Breaking Loose' booklet given: 11/01/18 - Substance & Tx. History Hx Alcohol Use: Yes Hx Substance Use: Yes Substance Use Type: Alcohol, Cocaine Hx Substance Use Treatment: Yes (last detox 08/2018) - Substances Abused Alcohol Route: Oral Frequency: Daily Amount used: half pint vodka, five 16oz beers Age of first use: 24 Date of Last Use: 10/30/18 Crack Route: Smoking Frequency: 3-6 times per week Amount used: $20 Age of first use: 24 Date of Last Use: 10/30/18 Family Disease History - Family Disease History Family Disease History: [place]: Father (), Mother (), Other: Father , Mother, Sister (no sister) Admission Physical Exam S - Vital Signs Vital Signs: Vital Signs - 24 hr 11/01/18 14:06 Temperature 96.2 F L Pulse Rate 88 Respiratory 20 Rate Blood Pressure 149/88 - Physical General Appearance: Yes: Appropriately Dressed, Moderate Distress, Tremorous, Irritable, Sweating, Anxious HEENTM: Yes: Hearing grossly Normal, Normal Voice, Nasal Congestion, Rhinorrhea Respiratory: Yes: Lungs Clear, Normal Breath Sounds, No Respiratory Distress Neck: Yes: No masses,lesions,Nodules Breast: Yes: Within Normal Limits Cardiology: Yes: Regular Rhythm, Regular Rate, S1, S2 Abdominal: Yes: Normal Bowel Sounds, Non Tender, Soft, Surgical Scar (h/o abdominal surgery) Genitourinary: Yes: Within Normal Limits Back: Yes: Normal Inspection Musculoskeletal: Yes: Joint Stiffness Extremities: Yes: Normal Capillary Refill, Normal Inspection, Non-Tender, Tremors Neurological: Yes: Fully Oriented, Alert, Normal Response Integumentary: Yes: Normal Color, Diaphoresis Lymphatic: Yes: Within Normal Limits - Diagnostic (1) Alcohol dependence with uncomplicated withdrawal Current Visit: Yes Status: Chronic (2) Cocaine dependence Current Visit: Yes Status: Chronic Qualifiers: Substance use status: uncomplicated Qualified Code(s): F14.20 - Cocaine dependence, uncomplicated (3) Knee pain, chronic Current Visit: Yes Status: Chronic Qualifiers: Laterality: left Qualified Code(s): M25.562 - Pain in left knee; G89.29 - Other chronic pain (4) No natural teeth Current Visit: No Status: Chronic (5) Substance-induced anxiety disorder Current Visit: No Status: Acute (6) Substance-induced sleep disorder Current Visit: No Status: Acute (7) Cocaine dependence, uncomplicated Current Visit: No Status: Chronic (8) H/O abdominal surgery Current Visit: No Status: Chronic (9) Hepatitis C Current Visit: Yes Status: Chronic Qualifiers: Viral hepatitis chronicity: chronic Hepatic coma status: without hepatic coma Qualified Code(s): B18.2 - Chronic viral hepatitis C (10) Hypertension Current Visit: Yes Status: Chronic Qualifiers: Hypertension type: essential hypertension Qualified Code(s): I10 - Essential (primary) hypertension (11) Nicotine dependence Current Visit: Yes Status: Chronic Qualifiers: Nicotine product type: cigarettes Substance use status: uncomplicated Qualified Code(s): F17.210 - Nicotine dependence, cigarettes, uncomplicated (12) Paranoid schizophrenia Current Visit: No Status: Chronic (13) Schizophrenia Current Visit: No Status: Chronic Qualifiers: Schizophrenia type: disorganized schizophrenia Qualified Code(s): F20.1 - Disorganized schizophrenia Comment: Self reports. Cleared for Admission S - Detox or Rehab [facility] Level of Care: Medically Managed Detox Regimen/Protocol: Librium [facility] Breath Alcohol Content Breath Alcohol Content: 0 Urine Drug Screen - Results Drug Screen Negative: No Urine Drug Screen Results: [facility] Admission - Rehab Decision to Admit Inpatient rehab admission?: No
[2018-11-01] MEDS ORDERED: MENTHOL/PHENOL 1 EACH UD MM PRN (14:27)
[2018-11-01] MEDS ORDERED: chlordiazePOXIDE HCL 10 MG CAPSULE PO PRN (14:27)
[2018-11-01] MEDS ORDERED: BISMUTH SUBSALICYLATE 524 MG/30 ML UD PO PRN (14:27)
[2018-11-01] MEDS ORDERED: ACETAMINOPHEN 325 MG TABLET (FP) PO PRN ×2 (14:27)
[2018-11-01] MEDS ORDERED: METHOCARBAMOL 500 MG TABLET PO PRN (14:27)
[2018-11-01] MEDS ORDERED: MAG HYDROX/AL HYDROX/SIMETH 30 ML UNIT-DOSE CUP PO PRN (14:27)
[2018-11-01] MEDS ORDERED: MAGNESIUM CITRATE 300 ML BOTTLE PO PRN (14:27)
[2018-11-01] MEDS ORDERED: ONDANSETRON *ODT* 4 MG TABLET SL PRN (14:27)
[2018-11-01] MEDS ORDERED: hydrOXYzine PAMOATE 25 MG CAPSULE (FP) PO PRN (14:27)
[2018-11-01] MEDS ORDERED: MAGNESIUM HYDROX 2400MG/30ML ORAL SUSPENSION 30 ML CUP PO PRN (14:27)
[2018-11-01] MEDS ORDERED: MELATONIN 5 MG TABLETS PO PRN (14:27)
[2018-11-01] MEDS ORDERED: chlordiazePOXIDE HCL 25 MG CAPSULE PO ONE (16:45)
[2018-11-01] MEDS: THIAMINE HCL 100 MG TABLET (FP) PO SCH (23:44)
[2018-11-01] MEDS: chlordiazePOXIDE HCL 25 MG CAPSULE PO SCH (23:44)
[2018-11-02] MEDS: chlordiazePOXIDE HCL 25 MG CAPSULE PO SCH ×2 (05:56→12:49)
[2018-11-02] MEDS: PRENATAL VITAMINS W/ FOLIC ACID TABLET (FP) PO SCH (10:36)
[2018-11-02] MEDS: NICOTINE 21 MG/24 HOURS TOPICAL PATCH TD SCH (10:36)
[2018-11-02 10:49] LABS: ALK PHOS 130 U/L (45-117); ANION GAP 6 MMOL/L (8-16); BILIRUBIN,TOTAL 0.4 mg/dL (0.2-1); BLOOD UREA NITROGEN 16 mg/dL (7-18); CALCIUM 8.3 mg/dL (8.5-10.1); CHLORIDE 104 mmol/L (98-107); CO2 28 mmol/L (21-32); CREATININE 0.9 mg/dL (0.55-1.3); GLUCOSE,RANDOM 127 mg/dL (74-106); POTASSIUM 3.8 mmol/L (3.5-5.1); SGOT/AST 46 U/L (15-37); SGPT/ALT 90 U/L (13-61); SODIUM 138 mmol/L (136-145); TOT PROT 7.3 g/dl (6.4-8.2)
[2018-11-02 11:32] LABS: HEMATOCRIT 40.7 % (35.4-49); HEMOGLOBIN 13.1 GM/dL (11.7-16.9); MCH 24.7 pg (25.7-33.7); MCHC 32.1 g/dl (32.0-35.9); MEAN PLT VOLUME 9.5 fl (7.5-11.1); PLATELET COUNT 164 K/MM3 (134-434); RBC 5.29 M/mm3 (4.00-5.60); RDW 14.2 % (11.9-15.9); WHITE BLOOD COUNT 3.2 K/mm3 (4.0-10.0)
[2018-11-02] MEDS ORDERED: METHYL SALICYLATE/MENTHOL OINT 30 GM TUBE TP PRN (11:42)
--- NOTE | 2018-11-02 15:03 | CONSULT ---
[facility] Psychiatric Consult - Data Date of interview: 11/02/18 Admission source: [facility] Identifying data: Mr Hawk is a 62 years old single Black male, father of 6 childen, unemployed receiving SSI, homeless seeking detox treatment for alcohol and cocaine Substance Abuse History: Reports history of alcohol and cocaine use. Refer to addiction counselor's summary for furher information Medical History: Significant for hypertension, hepatitis C and a history of surgery for perforated peptic ulcer in 1991. Smokes cigarettes 1ppd Psychiatric History: Patient is well known to medical underwriter from previous admissions to this facility. Reports history of Paranoid Schizophrenia diagnosed at age 21 when he was admitted to a hospital in [place] after his first psychotic break. Reports multiple psychiatric admissions to various facilities in [facility] including [place], [place], [facility], [place] and most recent in February 2018 to [facility]. He was discharged on Apr 11, 2018 on Zyprexa 10 mg po HS and referred to this facility for inpatient rehab. He was discharged from this facility rehab on 09/22/18 on Zyprexa 20 mg po hS and Zoloft 50 mg po daily. Told medical underwriter that since discharge, he has not been compliant with psychiatric after care but gets refills via ED. Reports feeling depressed and sleeping poorly at present. However, denies experiencing psychotic, manic symptoms as well as S/H ideations at this time. Physical/Sexual Abuse/Trauma History: Denies history of verbal, physical or sexual abuse as well as DV relationship Additional Comment: Denies criminal history Mental Status Exam - Mental Status Exam Alert and Oriented to: Time, Place, Person Cognitive Function: Fair Patient Appearance: Disheveled Mood: Depressed Affect: Appropriate Patient Behavior: Cooperative Speech Pattern: Clear Voice Loudness: Normal Thought Process: Intact, Goal Oriented Hallucinations: Denies Suicidal Ideation: Denies Homicidal Ideation: Denies Insight/Judgement: Poor Sleep: Poorly Appetite: Good Muscle strength/Tone: Normal Psychiatric Findings - Problem List ([place] 1, 2,3) (1) Paranoid schizophrenia Current Visit: No Status: Chronic (2) Substance induced mood disorder Current Visit: Yes Status: Acute (3) Substance-induced sleep disorder Current Visit: Yes Status: Acute (4) Alcohol dependence with uncomplicated withdrawal Current Visit: Yes Status: Acute (5) Cocaine dependence Current Visit: Yes Status: Chronic Qualifiers: Substance use status: uncomplicated Qualified Code(s): F14.20 - Cocaine dependence, uncomplicated (6) Nicotine dependence Current Visit: Yes Status: Chronic Qualifiers: Nicotine product type: cigarettes Substance use status: uncomplicated Qualified Code(s): F17.210 - Nicotine dependence, cigarettes, uncomplicated (7) Hepatitis C Current Visit: Yes Status: Chronic Qualifiers: Viral hepatitis chronicity: chronic Hepatic coma status: without hepatic coma Qualified Code(s): B18.2 - Chronic viral hepatitis C (8) Hypertension Current Visit: Yes Status: Chronic Qualifiers: Hypertension type: essential hypertension Qualified Code(s): I10 - Essential (primary) hypertension - Initial Treatment Plan Initial Treatment Plan: 1) Continue Zoloft 50 mg po daily and Zyprexa 20 mg po HS. 2) Continue inpatient detoxification
[2018-11-02] MEDS: SERTRALINE HCL 50 MG TABLET (FP) PO SCH (15:56)
--- NOTE | 2018-11-02 17:00 | PN ---
S CIWA - CIWA Score Nausea/Vomitin Muscle Tremors: 4-Moderate,w/Arms Extend Anxiety: 4-Mod. Anxious/Guarded Agitation: 4-Moderately Restless Paroxysmal Sweats: 3 Orientation: 0-Oriented Tacttile Disturbances: 0-None Auditory Disturbances: 0-None Visual Disturbances: 0-None Headache: 0-None Present CIWA-Ar Total Score: 17 [facility] Progress Note (SOAP) Subjective: Pain in knees (requesting bengay ointment), sweating Objective: 11/02/18 16:58 Last Vital Signs Temp Pulse Resp BP Pulse Ox 98.6 F 72 18 127/77 11/02/18 14:13 11/02/18 14:13 11/02/18 14:13 11/02/18 14:13 Laboratory Tests 11/02/18 11/02/18 08:00 08:00 WBC 3.2 L RBC 5.29 Hgb 13.1 Hct 40.7 MCV 77.0 L MCH 24.7 L MCHC 32.1 RDW 14.2 Plt Count 164 D MPV 9.5 Sodium 138 Potassium 3.8 Chloride 104 Carbon Dioxide 28 Anion Gap 6 L BUN 16 Creatinine 0.9 Creat Clearance w eGFR > 60 Random Glucose 127 H Calcium 8.3 L Total Bilirubin 0.4 AST 46 H ALT 90 H Alkaline Phosphatase 130 H Total Protein 7.3 Albumin 3.0 L Labs reviewed: glucose 127 Assessment: 11/02/18 16:59 Withdrawal symptoms Hyperglycemia noted Plan: Continue detox Encouraged PO water hydration Hyperglycemia: repeat fasting glucose
[2018-11-02] MEDS: OLANZapine 10 MG TABLET PO SCH (22:24)
[2018-11-02] MEDS: THIAMINE HCL 100 MG TABLET (FP) PO SCH (22:24)
[2018-11-02] MEDS: chlordiazePOXIDE 5 MG CAPSULE PO SCH (22:24)
[2018-11-03] MEDS: chlordiazePOXIDE 5 MG CAPSULE PO SCH ×2 (05:40→12:59)
[2018-11-03] MEDS: PRENATAL VITAMINS W/ FOLIC ACID TABLET (FP) PO SCH (10:14)
[2018-11-03] MEDS: SERTRALINE HCL 50 MG TABLET (FP) PO SCH (10:14)
[2018-11-03] MEDS: NICOTINE 21 MG/24 HOURS TOPICAL PATCH TD SCH (10:15)
--- NOTE | 2018-11-03 13:29 | PN ---
S CIWA - CIWA Score Nausea/Vomitin-No Nausea/No Vomiting Muscle Tremors: 2 Anxiety: 2 Agitation: 1-Slight > Activity Paroxysmal Sweats: 2 Orientation: 0-Oriented Tacttile Disturbances: 2-Mild Itch/Numbness/Burn Auditory Disturbances: 0-None Visual Disturbances: 0-None Headache: 0-None Present CIWA-Ar Total Score: 9 [facility] Progress Note (SOAP) Subjective: Sweating, Anxious. Objective: PATIENT A & O X 3, OBSERVED AMBULATING ON UNIT. IN NO ACUTE DISTRESS. 11/03/18 13:30 Vital Signs Temperature 97.5 F L 11/03/18 09:36 Pulse Rate 90 11/03/18 09:36 Respiratory Rate 18 11/03/18 09:36 Blood Pressure 136/79 11/03/18 09:36 O2 Sat by Pulse Oximetry (%) Laboratory Tests 11/02/18 11/02/18 11/02/18 08:00 08:00 08:00 WBC 3.2 L RBC 5.29 Hgb 13.1 Hct 40.7 MCV 77.0 L MCH 24.7 L MCHC 32.1 RDW 14.2 Plt Count 164 D MPV 9.5 Sodium 138 Potassium 3.8 Chloride 104 Carbon Dioxide 28 Anion Gap 6 L BUN 16 Creatinine 0.9 Creat Clearance w eGFR > 60 Random Glucose 127 H Fasting Glucose Calcium 8.3 L Total Bilirubin 0.4 AST 46 H ALT 90 H Alkaline Phosphatase 130 H Total Protein 7.3 Albumin 3.0 L RPR Titer Nonreactive 11/03/18 08:00 WBC RBC Hgb Hct MCV MCH MCHC RDW Plt Count MPV Sodium Potassium Chloride Carbon Dioxide Anion Gap BUN Creatinine Creat Clearance w eGFR Random Glucose Fasting Glucose 169 H Calcium Total Bilirubin AST ALT Alkaline Phosphatase Total Protein Albumin RPR Titer LABS NOTED. Assessment: 11/03/18 13:31 WITHDRAWAL SYMPTOMS. LEUKOPENIA. ELEAVTED LIVER ENZYMES. HYPERGLYCEMIA. 11/03/18 13:32 Plan: CONTINUE DETOX. INCREASE DAILY PO FLUID INTAKE.
[2018-11-03] MEDS ORDERED: chlordiazePOXIDE HCL 10 MG CAPSULE PO PRN (21:00)
[2018-11-03] MEDS: THIAMINE HCL 100 MG TABLET (FP) PO SCH (22:04)
[2018-11-03] MEDS: chlordiazePOXIDE HCL 10 MG CAPSULE PO SCH (22:04)
[2018-11-03] MEDS: OLANZapine 10 MG TABLET PO SCH (22:04)
[2018-11-04] MEDS: chlordiazePOXIDE HCL 10 MG CAPSULE PO SCH ×3 (06:18→22:13)
--- NOTE | 2018-11-04 10:31 | PN ---
S Progress Note (SOAP) Subjective: alert,interrupted sleep Objective: 11/04/18 10:30 Vital Signs Temperature 97.9 F 11/04/18 09:19 Pulse Rate 80 11/04/18 09:19 Respiratory Rate 18 11/04/18 09:19 Blood Pressure 121/79 11/04/18 09:19 O2 Sat by Pulse Oximetry (%) Assessment: 11/04/18 10:31 withdrawal symptom Plan: continue detox,discharge in am
[2018-11-04] MEDS: SERTRALINE HCL 50 MG TABLET (FP) PO SCH (10:50)
[2018-11-04] MEDS: NICOTINE 21 MG/24 HOURS TOPICAL PATCH TD SCH (10:50)
[2018-11-04] MEDS: PRENATAL VITAMINS W/ FOLIC ACID TABLET (FP) PO SCH (10:50)
[2018-11-04] MEDS: THIAMINE HCL 100 MG TABLET (FP) PO SCH (22:13)
[2018-11-04] MEDS: OLANZapine 10 MG TABLET PO SCH (22:13)
--- NOTE | 2018-11-05 09:01 | DS ---
[facility] Detox Discharge Summary Admission Date: 11/01/18 Discharge Date: 11/05/18 - History Present History: Alcohol Dependence, Cocaine Dependence - Physical Exam Results Vital Signs: Vital Signs Temperature 97.9 F 11/05/18 07:17 Pulse Rate 68 11/05/18 07:17 Respiratory Rate 18 11/05/18 07:17 Blood Pressure 124/84 11/05/18 07:17 O2 Sat by Pulse Oximetry (%) - Treatment Hospital Course: Detox Protocol Followed, Detoxed Safely, Responded well, Discharged Condition Good, Rehab Referral Accepted - Medication Discharge Medications: Ambulatory Orders Sertraline HCl [Zoloft -] 50 mg PO DAILY 09/04/18 Amlodipine Besylate [Norvasc -] 5 mg PO DAILY #14 tablet 09/08/18 Olanzapine [Zyprexa] 20 mg PO HS #30 tablet 09/22/18 - Diagnosis (1) Alcohol dependence with uncomplicated withdrawal Current Visit: Yes Status: Chronic (2) Cocaine dependence Current Visit: Yes Status: Chronic Qualifiers: Substance use status: uncomplicated Qualified Code(s): F14.20 - Cocaine dependence, uncomplicated (3) Knee pain, chronic Current Visit: Yes Status: Chronic Qualifiers: Laterality: left Qualified Code(s): M25.562 - Pain in left knee; G89.29 - Other chronic pain (4) No natural teeth Current Visit: No Status: Chronic (5) Substance-induced anxiety disorder Current Visit: No Status: Acute (6) Substance-induced sleep disorder Current Visit: No Status: Acute (7) Cocaine dependence, uncomplicated Current Visit: No Status: Chronic (8) H/O abdominal surgery Current Visit: No Status: Chronic (9) Hepatitis C Current Visit: Yes Status: Chronic Qualifiers: Viral hepatitis chronicity: chronic Hepatic coma status: without hepatic coma Qualified Code(s): B18.2 - Chronic viral hepatitis C (10) Hypertension Current Visit: Yes Status: Chronic Qualifiers: Hypertension type: essential hypertension Qualified Code(s): I10 - Essential (primary) hypertension (11) Nicotine dependence Current Visit: Yes Status: Chronic Qualifiers: Nicotine product type: cigarettes Substance use status: uncomplicated Qualified Code(s): F17.210 - Nicotine dependence, cigarettes, uncomplicated (12) Paranoid schizophrenia Current Visit: No Status: Chronic (13) Schizophrenia Current Visit: No Status: Chronic Qualifiers: Schizophrenia type: disorganized schizophrenia Qualified Code(s): F20.1 - Disorganized schizophrenia - AMA Did Patient Leave Against Medical Advice: No (referred to adelia ATC)
[2018-11-05] MEDS: PRENATAL VITAMINS W/ FOLIC ACID TABLET (FP) PO SCH (09:43)
[2018-11-05] MEDS: SERTRALINE HCL 50 MG TABLET (FP) PO SCH (09:43)
[2018-11-05] MEDS: NICOTINE 21 MG/24 HOURS TOPICAL PATCH TD SCH (09:43)
[2018-11-05 13:46] VITALS: BP 126/78; PULSE 102; TEMP 98.5
== END 2018-11-05 15:58 | disposition other institution (70) | DRG 774 ==
LOC: YASAS 11:59 → Y6N 16:29
PROVIDERS: ADMIT Surgery; ATTEND Surgery
PROC: HZ2ZZZZ Detoxification Services for Substance Abuse Treatment (ICD-10-PCS; principal; 2018-11-01)
DX: F10.230 Alcohol dependence with withdrawal, uncomplicated (principal); F14.20 Cocaine dependence, uncomplicated; F17.210 Nicotine dependence, cigarettes, uncomplicated; F19.280 Other psychoactive substance dependence with psychoactive substance-induced anxiety disorder; F19.282 Other psychoactive substance dependence with psychoactive substance-induced sleep disorder; F20.0 Paranoid schizophrenia; F20.1 Disorganized schizophrenia; B18.2 Chronic viral hepatitis C; D72.819 Decreased white blood cell count, unspecified; R94.5 Abnormal results of liver function studies; R73.9 Hyperglycemia, unspecified; K08.109 Complete loss of teeth, unspecified cause, unspecified class; M25.562 Pain in left knee; G89.29 Other chronic pain; Z80.8 Family history of malignant neoplasm of other organs or systems
CPT/HCPCS: 36415; 80053; 82947; 85027; 86593

== ENCOUNTER 2018-11-05 16:20 | Inpatient (IN) | payer OTHER ==
--- NOTE | 2018-11-05 15:29 | HP ---
[facility] Rehab Assess/Revision - Admission History Ad[facility] - Findings Detox History & Physical reviewed: Yes Concur with findings: Yes Inpatient Rehab Admission - Rehab Decision to Admit Inpatient rehab admission?: Yes - Initial Determination Are CD services needed?: Yes Free of communicable disease: Yes Not in need of hospitalization: Yes - Rehab Admission Criteria Previous failed treatment: Yes Poor recovery environment: Yes Comorbidities: Yes Lacks judgement: Yes Patient is meeting Inpatient Rehab admission criteria:: Yes
--- NOTE | 2018-11-05 15:34 | PN ---
S Progress Note Note: pt has remained stable on detox with current psych meds ordered by psychiatrist. Pt will remain zyprexa and zoloft as ordered by psych while pt is on rehab.
[~2018-11-05 16:20] MED LIST: ACETAMINOPHEN 325 MG TABLET (FP) PO PRN; LOPERAMIDE HCL 2 MG CAPSULE PO PRN; MAG HYDROX/AL HYDROX/SIMETH 30 ML UNIT-DOSE CUP PO PRN; MAGNESIUM CITRATE 300 ML BOTTLE PO PRN; MAGNESIUM HYDROX 2400MG/30ML ORAL SUSPENSION 30 ML CUP PO PRN; MENTHOL/PHENOL 1 EACH UD MM PRN; P-EPHED 60MG/TRIPROLIDI 2.5MG TABLET PO PRN; guaiFENesin 200 MG/10 ML 10 ML UNIT-DOSE CUPS PO PRN; hydrOXYzine PAMOATE 50 MG CAPSULE (FP) PO PRN
[2018-11-05] MEDS ORDERED: FLU VACCINE QUAD 60 MCG/0.5 ML (MDV 18-19) IM ONE (16:39)
[2018-11-05] MEDS: THIAMINE HCL 100 MG TABLET (FP) PO SCH (21:54)
[2018-11-05] MEDS: OLANZapine 10 MG TABLET PO SCH (21:54)
[2018-11-06] MEDS: amLODIPine BESYLATE 5 MG TABLET (FP) PO SCH (09:56)
[2018-11-06] MEDS: SERTRALINE HCL 50 MG TABLET (FP) PO SCH (09:56)
[2018-11-06] MEDS: NICOTINE 21 MG/24 HOURS TOPICAL PATCH TD SCH (09:56)
[2018-11-06] MEDS: PRENATAL VITAMINS W/ FOLIC ACID TABLET (FP) PO SCH (09:56)
[2018-11-06] MEDS: THIAMINE HCL 100 MG TABLET (FP) PO SCH (21:44)
[2018-11-06] MEDS: OLANZapine 10 MG TABLET PO SCH (21:44)
[2018-11-06] MEDS: MELATONIN 5 MG TABLETS PO PRN (21:45)
[2018-11-07] MEDS: NICOTINE 21 MG/24 HOURS TOPICAL PATCH TD SCH (09:55)
[2018-11-07] MEDS: SERTRALINE HCL 50 MG TABLET (FP) PO SCH (09:55)
[2018-11-07] MEDS: PRENATAL VITAMINS W/ FOLIC ACID TABLET (FP) PO SCH (09:55)
[2018-11-07] MEDS: amLODIPine BESYLATE 5 MG TABLET (FP) PO SCH (09:55)
[2018-11-07] MEDS: THIAMINE HCL 100 MG TABLET (FP) PO SCH (21:40)
[2018-11-07] MEDS: OLANZapine 10 MG TABLET PO SCH (21:41)
[2018-11-08] MEDS: SERTRALINE HCL 50 MG TABLET (FP) PO SCH (09:57)
[2018-11-08] MEDS: NICOTINE 21 MG/24 HOURS TOPICAL PATCH TD SCH (09:57)
[2018-11-08] MEDS: PRENATAL VITAMINS W/ FOLIC ACID TABLET (FP) PO SCH (09:57)
[2018-11-08] MEDS: amLODIPine BESYLATE 5 MG TABLET (FP) PO SCH (09:57)
[2018-11-08] MEDS: NICOTINE POLACRILEX 4 MG GUM BUC PRN (09:58)
[2018-11-08] MEDS: THIAMINE HCL 100 MG TABLET (FP) PO SCH (21:41)
[2018-11-08] MEDS: MELATONIN 5 MG TABLETS PO PRN (21:41)
[2018-11-08] MEDS: OLANZapine 10 MG TABLET PO SCH (21:41)
[2018-11-09] MEDS: SERTRALINE HCL 50 MG TABLET (FP) PO SCH (10:01)
[2018-11-09] MEDS: amLODIPine BESYLATE 5 MG TABLET (FP) PO SCH (10:01)
[2018-11-09] MEDS: NICOTINE 21 MG/24 HOURS TOPICAL PATCH TD SCH (10:01)
[2018-11-09] MEDS: PRENATAL VITAMINS W/ FOLIC ACID TABLET (FP) PO SCH (10:01)
[2018-11-09] MEDS: MELATONIN 5 MG TABLETS PO PRN (22:40)
[2018-11-09] MEDS: OLANZapine 10 MG TABLET PO SCH (22:40)
[2018-11-09] MEDS: THIAMINE HCL 100 MG TABLET (FP) PO SCH (22:41)
[2018-11-10] MEDS: PRENATAL VITAMINS W/ FOLIC ACID TABLET (FP) PO SCH (09:57)
[2018-11-10] MEDS: SERTRALINE HCL 50 MG TABLET (FP) PO SCH (09:57)
[2018-11-10] MEDS: amLODIPine BESYLATE 5 MG TABLET (FP) PO SCH (09:57)
[2018-11-10] MEDS: NICOTINE 21 MG/24 HOURS TOPICAL PATCH TD SCH (09:58)
[2018-11-10] MEDS: OLANZapine 10 MG TABLET PO SCH (21:29)
[2018-11-10] MEDS: THIAMINE HCL 100 MG TABLET (FP) PO SCH (21:29)
[2018-11-11] MEDS: SERTRALINE HCL 50 MG TABLET (FP) PO SCH (09:58)
[2018-11-11] MEDS: PRENATAL VITAMINS W/ FOLIC ACID TABLET (FP) PO SCH (09:58)
[2018-11-11] MEDS: NICOTINE 21 MG/24 HOURS TOPICAL PATCH TD SCH (09:58)
[2018-11-11] MEDS: amLODIPine BESYLATE 5 MG TABLET (FP) PO SCH (09:58)
[2018-11-11] MEDS: OLANZapine 10 MG TABLET PO SCH (21:15)
[2018-11-11] MEDS: MELATONIN 5 MG TABLETS PO PRN (21:15)
[2018-11-11] MEDS: THIAMINE HCL 100 MG TABLET (FP) PO SCH (21:15)
[2018-11-12] MEDS: NICOTINE 21 MG/24 HOURS TOPICAL PATCH TD SCH (09:45)
[2018-11-12] MEDS: amLODIPine BESYLATE 5 MG TABLET (FP) PO SCH (09:45)
[2018-11-12] MEDS: SERTRALINE HCL 50 MG TABLET (FP) PO SCH (09:46)
[2018-11-12] MEDS: PRENATAL VITAMINS W/ FOLIC ACID TABLET (FP) PO SCH (09:46)
[2018-11-12] MEDS: NICOTINE POLACRILEX 4 MG GUM BUC PRN (14:05)
[2018-11-12] MEDS: THIAMINE HCL 100 MG TABLET (FP) PO SCH (21:19)
[2018-11-12] MEDS: MELATONIN 5 MG TABLETS PO PRN (21:19)
[2018-11-12] MEDS: OLANZapine 10 MG TABLET PO SCH (21:19)
[2018-11-13] MEDS: NICOTINE 21 MG/24 HOURS TOPICAL PATCH TD SCH (09:45)
[2018-11-13] MEDS: amLODIPine BESYLATE 5 MG TABLET (FP) PO SCH (09:45)
[2018-11-13] MEDS: SERTRALINE HCL 50 MG TABLET (FP) PO SCH (09:45)
[2018-11-13] MEDS: PRENATAL VITAMINS W/ FOLIC ACID TABLET (FP) PO SCH (09:45)
[2018-11-13] MEDS: THIAMINE HCL 100 MG TABLET (FP) PO SCH (21:17)
[2018-11-13] MEDS: MELATONIN 5 MG TABLETS PO PRN (21:17)
[2018-11-13] MEDS: OLANZapine 10 MG TABLET PO SCH (21:17)
[2018-11-14] MEDS: NICOTINE 21 MG/24 HOURS TOPICAL PATCH TD SCH (09:45)
[2018-11-14] MEDS: SERTRALINE HCL 50 MG TABLET (FP) PO SCH (09:45)
[2018-11-14] MEDS: amLODIPine BESYLATE 5 MG TABLET (FP) PO SCH (09:45)
[2018-11-14] MEDS: PRENATAL VITAMINS W/ FOLIC ACID TABLET (FP) PO SCH (09:45)
[2018-11-14] MEDS: OLANZapine 10 MG TABLET PO SCH (21:08)
[2018-11-14] MEDS: THIAMINE HCL 100 MG TABLET (FP) PO SCH (21:08)
[2018-11-14] MEDS: MELATONIN 5 MG TABLETS PO PRN (21:08)
[2018-11-15] MEDS: PRENATAL VITAMINS W/ FOLIC ACID TABLET (FP) PO SCH (09:58)
[2018-11-15] MEDS: NICOTINE 21 MG/24 HOURS TOPICAL PATCH TD SCH (09:58)
[2018-11-15] MEDS: SERTRALINE HCL 50 MG TABLET (FP) PO SCH (09:58)
[2018-11-15] MEDS: amLODIPine BESYLATE 5 MG TABLET (FP) PO SCH (09:58)
[2018-11-15] MEDS: MELATONIN 5 MG TABLETS PO PRN (21:19)
[2018-11-15] MEDS: OLANZapine 10 MG TABLET PO SCH (21:19)
[2018-11-15] MEDS: THIAMINE HCL 100 MG TABLET (FP) PO SCH (21:19)
[2018-11-16] MEDS: NICOTINE 21 MG/24 HOURS TOPICAL PATCH TD SCH (09:45)
[2018-11-16] MEDS: SERTRALINE HCL 50 MG TABLET (FP) PO SCH (09:45)
[2018-11-16] MEDS: amLODIPine BESYLATE 5 MG TABLET (FP) PO SCH (09:45)
[2018-11-16] MEDS: PRENATAL VITAMINS W/ FOLIC ACID TABLET (FP) PO SCH (09:45)
[2018-11-16] MEDS: MELATONIN 5 MG TABLETS PO PRN (21:27)
[2018-11-16] MEDS: OLANZapine 10 MG TABLET PO SCH (21:27)
[2018-11-16] MEDS: THIAMINE HCL 100 MG TABLET (FP) PO SCH (21:27)
[2018-11-17] MEDS: NICOTINE 21 MG/24 HOURS TOPICAL PATCH TD SCH (10:03)
[2018-11-17] MEDS: amLODIPine BESYLATE 5 MG TABLET (FP) PO SCH (10:03)
[2018-11-17] MEDS: PRENATAL VITAMINS W/ FOLIC ACID TABLET (FP) PO SCH (10:03)
[2018-11-17] MEDS: SERTRALINE HCL 50 MG TABLET (FP) PO SCH (10:03)
[2018-11-17] MEDS: OLANZapine 10 MG TABLET PO SCH (21:19)
[2018-11-17] MEDS: MELATONIN 5 MG TABLETS PO PRN (21:19)
[2018-11-17] MEDS: THIAMINE HCL 100 MG TABLET (FP) PO SCH (21:19)
[2018-11-18] MEDS: NICOTINE 21 MG/24 HOURS TOPICAL PATCH TD SCH (10:18)
[2018-11-18] MEDS: amLODIPine BESYLATE 5 MG TABLET (FP) PO SCH (10:18)
[2018-11-18] MEDS: SERTRALINE HCL 50 MG TABLET (FP) PO SCH (10:18)
[2018-11-18] MEDS: PRENATAL VITAMINS W/ FOLIC ACID TABLET (FP) PO SCH (10:18)
[2018-11-18] MEDS ORDERED: PT OWN MED DRAWER 7, Y5N ONE (11:15)
[2018-11-18] MEDS: THIAMINE HCL 100 MG TABLET (FP) PO SCH (21:44)
[2018-11-18] MEDS: OLANZapine 10 MG TABLET PO SCH (21:44)
[2018-11-19] MEDS: PRENATAL VITAMINS W/ FOLIC ACID TABLET (FP) PO SCH (10:01)
[2018-11-19] MEDS: SERTRALINE HCL 50 MG TABLET (FP) PO SCH (10:01)
[2018-11-19] MEDS: amLODIPine BESYLATE 5 MG TABLET (FP) PO SCH (10:01)
[2018-11-19] MEDS: NICOTINE 21 MG/24 HOURS TOPICAL PATCH TD SCH (10:01)
[2018-11-19] MEDS: NICOTINE POLACRILEX 4 MG GUM BUC PRN (10:02)
[2018-11-19] MEDS: IBUPROFEN 400 MG TABLET (FP) PO PRN (10:13)
[2018-11-19] MEDS: THIAMINE HCL 100 MG TABLET (FP) PO SCH (21:12)
[2018-11-19] MEDS: OLANZapine 10 MG TABLET PO SCH (21:12)
[2018-11-20] MEDS: NICOTINE 21 MG/24 HOURS TOPICAL PATCH TD SCH (09:09)
[2018-11-20] MEDS: amLODIPine BESYLATE 5 MG TABLET (FP) PO SCH (09:09)
[2018-11-20] MEDS: PRENATAL VITAMINS W/ FOLIC ACID TABLET (FP) PO SCH (09:09)
[2018-11-20] MEDS: SERTRALINE HCL 50 MG TABLET (FP) PO SCH (09:10)
[2018-11-20] MEDS: NICOTINE POLACRILEX 4 MG GUM BUC PRN (13:56)
[2018-11-20] MEDS: THIAMINE HCL 100 MG TABLET (FP) PO SCH (21:48)
[2018-11-20] MEDS: OLANZapine 10 MG TABLET PO SCH (21:48)
[2018-11-21] MEDS: PRENATAL VITAMINS W/ FOLIC ACID TABLET (FP) PO SCH (10:12)
[2018-11-21] MEDS: amLODIPine BESYLATE 5 MG TABLET (FP) PO SCH (10:12)
[2018-11-21] MEDS: NICOTINE 21 MG/24 HOURS TOPICAL PATCH TD SCH (10:12)
[2018-11-21] MEDS: SERTRALINE HCL 50 MG TABLET (FP) PO SCH (10:12)
[2018-11-21] MEDS: OLANZapine 10 MG TABLET PO SCH (21:56)
[2018-11-21] MEDS: THIAMINE HCL 100 MG TABLET (FP) PO SCH (21:56)
[2018-11-21] MEDS: MELATONIN 5 MG TABLETS PO PRN (21:56)
[2018-11-22] MEDS: amLODIPine BESYLATE 5 MG TABLET (FP) PO SCH (09:53)
[2018-11-22] MEDS: PRENATAL VITAMINS W/ FOLIC ACID TABLET (FP) PO SCH (09:53)
[2018-11-22] MEDS: SERTRALINE HCL 50 MG TABLET (FP) PO SCH (09:53)
[2018-11-22] MEDS: NICOTINE 21 MG/24 HOURS TOPICAL PATCH TD SCH (09:53)
[2018-11-22] MEDS: NICOTINE POLACRILEX 4 MG GUM BUC PRN (09:54)
[2018-11-22] MEDS: IBUPROFEN 400 MG TABLET (FP) PO PRN (14:28)
[2018-11-22] MEDS: THIAMINE HCL 100 MG TABLET (FP) PO SCH (21:52)
[2018-11-22] MEDS: MELATONIN 5 MG TABLETS PO PRN (21:52)
[2018-11-22] MEDS: OLANZapine 10 MG TABLET PO SCH (21:52)
[2018-11-23] MEDS: NICOTINE 21 MG/24 HOURS TOPICAL PATCH TD SCH (09:55)
[2018-11-23] MEDS: IBUPROFEN 400 MG TABLET (FP) PO PRN (09:55)
[2018-11-23] MEDS: amLODIPine BESYLATE 5 MG TABLET (FP) PO SCH (09:55)
[2018-11-23] MEDS: SERTRALINE HCL 50 MG TABLET (FP) PO SCH (09:55)
[2018-11-23] MEDS: PRENATAL VITAMINS W/ FOLIC ACID TABLET (FP) PO SCH (09:55)
[2018-11-23] MEDS: NICOTINE POLACRILEX 4 MG GUM BUC PRN (09:56)
[2018-11-23] MEDS: MELATONIN 5 MG TABLETS PO PRN (21:50)
[2018-11-23] MEDS: THIAMINE HCL 100 MG TABLET (FP) PO SCH (21:50)
[2018-11-23] MEDS: OLANZapine 10 MG TABLET PO SCH (21:50)
[2018-11-24] MEDS: amLODIPine BESYLATE 5 MG TABLET (FP) PO SCH (10:09)
[2018-11-24] MEDS: SERTRALINE HCL 50 MG TABLET (FP) PO SCH (10:09)
[2018-11-24] MEDS: PRENATAL VITAMINS W/ FOLIC ACID TABLET (FP) PO SCH (10:09)
[2018-11-24] MEDS: NICOTINE 21 MG/24 HOURS TOPICAL PATCH TD SCH (10:09)
[2018-11-24] MEDS: THIAMINE HCL 100 MG TABLET (FP) PO SCH (21:57)
[2018-11-24] MEDS: OLANZapine 10 MG TABLET PO SCH (21:57)
[2018-11-25] MEDS: amLODIPine BESYLATE 5 MG TABLET (FP) PO SCH (09:46)
[2018-11-25] MEDS: NICOTINE 21 MG/24 HOURS TOPICAL PATCH TD SCH (09:46)
[2018-11-25] MEDS: NICOTINE POLACRILEX 4 MG GUM BUC PRN (09:46)
[2018-11-25] MEDS: SERTRALINE HCL 50 MG TABLET (FP) PO SCH (09:46)
[2018-11-25] MEDS: PRENATAL VITAMINS W/ FOLIC ACID TABLET (FP) PO SCH (09:46)
[2018-11-25] MEDS: OLANZapine 10 MG TABLET PO SCH (21:57)
[2018-11-25] MEDS: THIAMINE HCL 100 MG TABLET (FP) PO SCH (21:57)
[2018-11-26] MEDS: PRENATAL VITAMINS W/ FOLIC ACID TABLET (FP) PO SCH (10:11)
[2018-11-26] MEDS: SERTRALINE HCL 50 MG TABLET (FP) PO SCH (10:11)
[2018-11-26] MEDS: NICOTINE 21 MG/24 HOURS TOPICAL PATCH TD SCH (10:11)
[2018-11-26] MEDS: amLODIPine BESYLATE 5 MG TABLET (FP) PO SCH (10:11)
[2018-11-26] MEDS: THIAMINE HCL 100 MG TABLET (FP) PO SCH (21:37)
[2018-11-26] MEDS: OLANZapine 10 MG TABLET PO SCH (21:37)
[2018-11-27] MEDS: SERTRALINE HCL 50 MG TABLET (FP) PO SCH (10:17)
[2018-11-27] MEDS: amLODIPine BESYLATE 5 MG TABLET (FP) PO SCH (10:17)
[2018-11-27] MEDS: NICOTINE 21 MG/24 HOURS TOPICAL PATCH TD SCH (10:17)
[2018-11-27] MEDS: PRENATAL VITAMINS W/ FOLIC ACID TABLET (FP) PO SCH (10:17)
[2018-11-27] MEDS: THIAMINE HCL 100 MG TABLET (FP) PO SCH (21:57)
[2018-11-27] MEDS: MELATONIN 5 MG TABLETS PO PRN (21:57)
[2018-11-27] MEDS: OLANZapine 10 MG TABLET PO SCH (21:57)
[2018-11-28] MEDS: PRENATAL VITAMINS W/ FOLIC ACID TABLET (FP) PO SCH (10:07)
[2018-11-28] MEDS: NICOTINE 21 MG/24 HOURS TOPICAL PATCH TD SCH (10:07)
[2018-11-28] MEDS: SERTRALINE HCL 50 MG TABLET (FP) PO SCH (10:07)
[2018-11-28] MEDS: amLODIPine BESYLATE 5 MG TABLET (FP) PO SCH (10:07)
[2018-11-28] MEDS: THIAMINE HCL 100 MG TABLET (FP) PO SCH (21:44)
[2018-11-28] MEDS: MELATONIN 5 MG TABLETS PO PRN (21:44)
[2018-11-28] MEDS: OLANZapine 10 MG TABLET PO SCH (21:44)
[2018-11-29] MEDS: SERTRALINE HCL 50 MG TABLET (FP) PO SCH (09:47)
[2018-11-29] MEDS: amLODIPine BESYLATE 5 MG TABLET (FP) PO SCH (09:47)
[2018-11-29] MEDS: PRENATAL VITAMINS W/ FOLIC ACID TABLET (FP) PO SCH (09:47)
[2018-11-29] MEDS: NICOTINE 21 MG/24 HOURS TOPICAL PATCH TD SCH (09:47)
[2018-11-29] MEDS: IBUPROFEN 400 MG TABLET (FP) PO PRN (14:47)
[2018-11-29] MEDS: NICOTINE POLACRILEX 4 MG GUM BUC PRN (18:58)
[2018-11-29] MEDS: THIAMINE HCL 100 MG TABLET (FP) PO SCH (21:43)
[2018-11-29] MEDS: OLANZapine 10 MG TABLET PO SCH (21:44)
[2018-11-30] MEDS: amLODIPine BESYLATE 5 MG TABLET (FP) PO SCH (09:38)
[2018-11-30] MEDS: SERTRALINE HCL 50 MG TABLET (FP) PO SCH (09:38)
[2018-11-30] MEDS: NICOTINE 21 MG/24 HOURS TOPICAL PATCH TD SCH (09:38)
[2018-11-30] MEDS: PRENATAL VITAMINS W/ FOLIC ACID TABLET (FP) PO SCH (09:38)
[2018-11-30] MEDS: OLANZapine 10 MG TABLET PO SCH (21:13)
[2018-11-30] MEDS: THIAMINE HCL 100 MG TABLET (FP) PO SCH (21:13)
[2018-12-01] MEDS: NICOTINE 21 MG/24 HOURS TOPICAL PATCH TD SCH (09:51)
[2018-12-01] MEDS: PRENATAL VITAMINS W/ FOLIC ACID TABLET (FP) PO SCH (09:51)
[2018-12-01] MEDS: SERTRALINE HCL 50 MG TABLET (FP) PO SCH (09:51)
[2018-12-01] MEDS: amLODIPine BESYLATE 5 MG TABLET (FP) PO SCH (09:52)
[2018-12-01] MEDS: THIAMINE HCL 100 MG TABLET (FP) PO SCH (21:35)
[2018-12-01] MEDS: MELATONIN 5 MG TABLETS PO PRN (21:35)
[2018-12-01] MEDS: OLANZapine 10 MG TABLET PO SCH (21:35)
[2018-12-02 06:36] VITALS: BP 120/94; PULSE 96; TEMP 97.9
--- NOTE | 2018-12-02 07:42 | PN ---
[facility] Progress Note Note: Patient is scheduled for discharge today. Scripts for 30 days supply of medications(Zoloft, Zyprexa) are electronically transmitted to [facility] at [address] [place] [id number]
--- NOTE | 2018-12-02 08:30 | PN ---
[facility] Progress Note (SOAP) Subjective: Patient to be discharged today. Objective: 12/02/18 08:30 Vital Signs (72 hours) 11/29/18 11/30/18 11/30/18 09:30 03:30 06:53 Temperature 98.1 F Pulse Rate 117 H 101 H Respiratory 18 18 18 Rate Blood Pressure 120/81 138/90 11/30/18 12/01/18 12/01/18 09:30 00:30 03:30 Temperature Pulse Rate 106 H Respiratory 18 18 18 Rate Blood Pressure 117/83 12/01/18 12/01/18 12/02/18 06:49 09:30 00:30 Temperature 97.7 F Pulse Rate 95 H 99 H Respiratory 18 18 18 Rate Blood Pressure 91/63 108/73 12/02/18 12/02/18 03:30 06:36 Temperature 97.9 F Pulse Rate 96 H Respiratory 18 20 Rate Blood Pressure 120/94 12/02/18 08:30 A+O x3, lungs clear, Heart rate regular, medically stable for discharge Assessment: 12/02/18 08:31 ETOH Dependance, chronic Cocaine dependance, chronic HTN Hepatitis C, chronic Plan: Medically stable for discharge, Will go to [facility] for aftercare, receiving primary care as outpatient at [facility] in [place].
== END 2018-12-02 09:50 | disposition home or self-care (01) | DRG 772 ==
LOC: YASAS 16:20 → Y3W 16:22
PROVIDERS: ADMIT Neuromusculoskeletal Medicine & OMM; ATTEND Neuromusculoskeletal Medicine & OMM
PROC: HZ42ZZZ Group Counseling for Substance Abuse Treatment, Cognitive-Behavioral (ICD-10-PCS; principal; 2018-11-05)
DX: F10.20 Alcohol dependence, uncomplicated (principal); F14.20 Cocaine dependence, uncomplicated; I10 Essential (primary) hypertension; B18.2 Chronic viral hepatitis C

== ENCOUNTER 2018-12-27 11:46 | Inpatient (IN) | payer OTHER ==
[2018-12-27 16:55] VITALS: BMI 22.8
--- NOTE | 2018-12-27 19:37 | HP ---
CIWA Score Nausea/Vomitin-Mild Nausea/No Vomiting Muscle Tremors: 3 Anxiety: 3 Agitation: 2 Paroxysmal Sweats: 1-Minimal Palms Moist Orientation: 0-Oriented Tacttile Disturbances: 0-None Auditory Disturbances: 0-None Visual Disturbances: 0-None Headache: 1-Very Mild CIWA-Ar Total Score: 11 - Admission Criteria OASAS Guidelines: Admission for Medically Managed Detox: Requires at least one of the followin. CIWA greater than 12 2. Seizures within the past 24 hours 3. Delirium tremens within the past 24 hours 4. Hallucinations within the past 24 hours 5. Acute intervention needed for co occurring medical disorder 6. Acute intervention needed for co occurring psychiatric disorder 7. Severe withdrawal that cannot be handled at a lower level of care (continued vomiting, continued diarrhea, abnormal vital signs) requiring intravenous medication and/or fluids 8. Patient presents the following: Seizures, delirium tremens or hallucinations in the past 12 hours Admission Criteria Met: Admission criteria met Admission ROS [facility] - HPI Chief Complaint: "I am here to get help for my drinking problems" Allergies/Adverse Reactions: Allergies Allergy/AdvReac Type Severity Reaction Status Date / Time haloperidol [From Haldol] AdvReac Severe stiffness Verified 12/27/18 16:49 haloperidol lactate AdvReac Severe stiffness Verified 12/27/18 16:49 [From Haldol] risperidone [From Risperdal] AdvReac Severe stiffness Verified 12/27/18 16:49 History of Present Illness: 63 year old male seeking detox from alcohol. Pt was last here in October. Endorses alcohol induced blackouts Hx of Hep C, HTN, schizophrenia. Denies SI or HI in the past or at this time Exam Limitations: No Limitations - Ebola screening Have you traveled outside of the country in the last 21 days: No (N) Have you had contact with anyone from an Ebola affected area: No Have you been sick,other than usual withdrawal symptoms: No Do you have a fever: No - Review of Systems Constitutional: Changes in sleep EENT: reports: Cataracts (L side), Dental Problems (Has no diet) Respiratory: reports: No Symptoms reported Cardiac: reports: No Symptoms Reported GI: reports: No Symptoms Reported : reports: No Symptoms Reported Musculoskeletal: reports: No Symptoms Reported Integumentary: reports: No Symptoms Reported Neuro: reports: No Symptoms reported Endocrine: reports: No Symptoms Reported Hematology: reports: No Symptoms Reported Psychiatric: reports: Judgement Intact, Mood/Affect Appropiate, Orientated x3 Other Systems: Reviewed and Negative Patient History - Patient Medical History Hx Anemia: No Hx Asthma: No Hx Chronic Obstructive Pulmonary Disease (COPD): No Hx Cancer: No Hx Cardiac Disorders: No Hx Congestive Heart Failure: No Hx Hypertension: Yes (On Norvasc 5 mg) Hx Hypercholesterolemia: No Hx Pacemaker: No HX Cerebrovascular Accident: No Hx Seizures: No Hx Dementia: No Hx Diabetes: No Hx Gastrointestinal Disorders: No Hx Liver Disease: No Hx Genitourinary Disorders: No Hx Sexually Transmitted Disorders: No Hx Renal Disease (ESRD): No Hx Thyroid Disease: No Hx Human Immunodeficiency Virus (HIV): No (NEGATIVE HX;last 2017) Hx Hepatitis C: Yes (NO TREATMENT) Hx Depression: Yes Hx Suicide Attempt: No Hx Bipolar Disorder: No Hx Schizophrenia: Yes - Patient Surgical History Past Surgical History: Yes Hx Neurologic Surgery: No Hx Cataract Extraction: No Hx Cardiac Surgery: No Hx Lung Surgery: No Hx Breast Surgery: No Hx Breast Biopsy: No Hx Abdominal Surgery: Yes (abdomen perforated peptic ulcer in 1991) Hx Appendectomy: No Hx Cholecystectomy: No Hx Genitourinary Surgery: No Hx Section: No Hx Orthopedic Surgery: No Hx Hysterectomy: No Anesthesia Reaction: No - PPD History Previous Implant?: Yes Documented Results: Negative w/proof Implanted On Prior R Admission?: Yes Date: 04/13/18 Results: 0mm PPD to be Administered?: No - Reproductive History Patient is a Female of Child Bearing Age (11 -55 yrs old): No - Smoking Cessation Smoking history: Current every day smoker Have you smoked in the past 12 months: Yes Aproximately how many cigarettes per day: 20 Cigars Per Day: 0 Hx Chewing Tobacco Use: No Initiated information on smoking cessation: Yes 'Breaking Loose' booklet given: 12/27/18 - Substance & Tx. History Hx Alcohol Use: Yes Hx Substance Use: Yes Substance Use Type: Alcohol, Cocaine Hx Substance Use Treatment: Yes - Substances abused Alcohol Substance route: Oral Frequency: Daily Amount used: 1 PINT VODKA 4 BEERS Age of first use: 24 Date of last use: 12/26/18 Family Disease History - Family Disease History Family Disease History: [place]: Father (), Mother (), Other: Father , Mother, Sister (no sister) Admission Physical Exam [facility] - Vital Signs Vital Signs: Vital Signs - 24 hr 12/27/18 12/27/18 16:49 17:30 Temperature 98.6 F 98.6 F Pulse Rate 87 87 Respiratory 18 18 Rate Blood Pressure 157/92 157/92 - Physical General Appearance: Yes: Mild Distress HEENTM: Yes: Within Normal Limits Respiratory: Yes: Normal Breath Sounds, No Respiratory Distress Neck: Yes: No masses,lesions,Nodules, Trachea in good position Breast: Yes: Breast Exam Deferred Cardiology: Yes: Regular Rhythm, Regular Rate Abdominal: Yes: Within Normal Limits Genitourinary: Yes: Within Normal Limits Back: Yes: Normal Inspection Musculoskeletal: Yes: full range of Motion, Gait Steady Extremities: Yes: Normal Capillary Refill, Normal Inspection, Normal Range of Motion Neurological: Yes: Fully Oriented, Alert Integumentary: Yes: Normal Color, Dry, Warm Lymphatic: Yes: Within Normal Limits - Diagnostic (1) Alcohol dependence with uncomplicated withdrawal Current Visit: No Status: Chronic (2) Cocaine dependence Current Visit: No Status: Chronic Qualifiers: Substance use status: uncomplicated Qualified Code(s): F14.20 - Cocaine dependence, uncomplicated (3) Cocaine dependence, uncomplicated Current Visit: No Status: Chronic (4) Hypertension Current Visit: No Status: Chronic Qualifiers: Hypertension type: essential hypertension Qualified Code(s): I10 - Essential (primary) hypertension (5) Nicotine dependence Current Visit: No Status: Chronic Qualifiers: Nicotine product type: cigarettes Substance use status: uncomplicated Qualified Code(s): F17.210 - Nicotine dependence, cigarettes, uncomplicated (6) No natural teeth Current Visit: No Status: Chronic (7) Schizophrenia Current Visit: No Status: Chronic Qualifiers: Schizophrenia type: disorganized schizophrenia Qualified Code(s): F20.1 - Disorganized schizophrenia Comment: Self reports. Cleared for Admission S - Detox or Rehab [facility] Level of Care: Medically Managed Detox Regimen/Protocol: Librium Breathalyzer - Breathalyzer Breathalyzer: 0 Urine Drug Screen - Test Device Lot number: [id number] Expiration date: 07/25/20 - Control Is test valid?: Yes - Results Drug screen NEGATIVE: No Urine drug screen results: PAOLO-Cocaine, BZO-Benzodiazepines Inpatient Rehab Admission - Rehab Decision to Admit Inpatient rehab admission?: No
[2018-12-27] MEDS ORDERED: MENTHOL/PHENOL 1 EACH UD MM PRN (19:44)
[2018-12-27] MEDS ORDERED: hydrOXYzine PAMOATE 25 MG CAPSULE (FP) PO PRN (19:44)
[2018-12-27] MEDS ORDERED: BISMUTH SUBSALICYLATE 524 MG/30 ML UD PO PRN (19:44)
[2018-12-27] MEDS ORDERED: ACETAMINOPHEN 325 MG TABLET (FP) PO PRN ×2 (19:44)
[2018-12-27] MEDS ORDERED: MAG HYDROX/AL HYDROX/SIMETH 30 ML UNIT-DOSE CUP PO PRN (19:44)
[2018-12-27] MEDS ORDERED: MAGNESIUM HYDROX 2400MG/30ML ORAL SUSPENSION 30 ML CUP PO PRN (19:44)
[2018-12-27] MEDS ORDERED: chlordiazePOXIDE HCL 10 MG CAPSULE PO PRN ×2 (19:44→21:08)
[2018-12-27] MEDS ORDERED: chlordiazePOXIDE HCL 25 MG CAPSULE PO SCH (19:44)
[2018-12-27] MEDS ORDERED: NICOTINE POLACRILEX 4 MG GUM BUC PRN (19:44)
[2018-12-27] MEDS ORDERED: IBUPROFEN 400 MG TABLET (FP) PO PRN (19:44)
[2018-12-27] MEDS ORDERED: MAGNESIUM CITRATE 300 ML BOTTLE PO PRN (19:44)
[2018-12-27] MEDS ORDERED: METHOCARBAMOL 500 MG TABLET PO PRN (19:44)
[2018-12-27] MEDS: amLODIPine BESYLATE 5 MG TABLET (FP) PO SCH (22:41)
[2018-12-27] MEDS: chlordiazePOXIDE HCL 25 MG CAPSULE PO SCH (22:41)
[2018-12-27] MEDS: MELATONIN 5 MG TABLETS PO PRN (22:42)
[2018-12-27] MEDS: NICOTINE 21 MG/24 HOURS TOPICAL PATCH TD SCH (23:02)
[2018-12-27] MEDS: THIAMINE HCL 100 MG TABLET (FP) PO SCH (23:03)
[2018-12-28] MEDS ORDERED: chlordiazePOXIDE 5 MG CAPSULE PO SCH (05:00)
[2018-12-28] MEDS: chlordiazePOXIDE HCL 25 MG CAPSULE PO SCH ×2 (05:50→12:19)
--- NOTE | 2018-12-28 06:20 | CONSULT ---
[facility] Psychiatric Consult - Data Date of interview: 12/28/18 Admission source: Self-referred Identifying data: Mr Hawk is a 62 years old single Black male, father of 6 childen, unemployed receiving SSI, homeless seeking detox treatment for alcohol and cocaine Substance Abuse History: Reports history of alcohol and cocaine use. Refer to addiction counselor's summary for furher information Medical History: Significant for hypertension, hepatitis C and a history of surgery for perforated peptic ulcer in 1991. 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 Reports history of Paranoid Schizophrenia diagnosed at age 21 when he was admitted to a hospital in [place] after his first psychotic break. Reports multiple psychiatric admissions to various facilities in [facility] including [facility], [facility], [facility], [facility] and most recent in February 2018 to [facility]. He was discharged on Apr 11, 2018 on Zyprexa 10 mg po HS and referred to this facility for inpatient rehab. He was discharged from this facility rehab on 09/22/18 on Zyprexa 20 mg po hS and Zoloft 50 mg po daily. Since discharge from this facility on 09/22/18, he has not been compliant with psychiatric after care but gets refills via ED. He was readmitted to detox /rehab in this facility from 11/01/18 to 12/02/18. He was discharged on Zyprexa 20 mg po HS and Zoloft 50 mg po daily. Told teletypewriter installer that he relapsed soon after discharge and did not pickling operator his psychotropic medications from the pharmacy. At present, denies experiencing psychotic, manic symptoms as well as S/H ideations at this time. However, reports feeling depressed and sleeping poorly Physical/Sexual Abuse/Trauma History: Denies history of verbal, physical or sexual abuse as well as DV relationship Additional Comment: Denies criminal history Mental Status Exam - Mental Status Exam Alert and Oriented to: Time, Place, Person Cognitive Function: Fair Patient Appearance: Disheveled Mood: Depressed Affect: Appropriate Patient Behavior: Cooperative Speech Pattern: Clear Voice Loudness: Normal Thought Process: Intact, Goal Oriented Hallucinations: Denies Suicidal Ideation: Denies Homicidal Ideation: Denies Insight/Judgement: Poor Sleep: Poorly Appetite: Good Muscle strength/Tone: Normal Gait/Station: Normal Psychiatric Findings - Problem List ([place] 1, 2,3) (1) Schizophrenia Current Visit: No Status: Chronic Qualifiers: Schizophrenia type: disorganized schizophrenia Qualified Code(s): F20.1 - Disorganized schizophrenia Comment: Self reports. (2) Alcohol-induced mood disorder Current Visit: Yes Status: Acute (3) Alcohol-induced sleep disorder Current Visit: Yes Status: Acute (4) Alcohol dependence with uncomplicated withdrawal Current Visit: No Status: Acute (5) Cocaine dependence Current Visit: No Status: Chronic Qualifiers: Substance use status: uncomplicated Qualified Code(s): F14.20 - Cocaine dependence, uncomplicated (6) Hepatitis C Current Visit: No Status: Chronic Qualifiers: Viral hepatitis chronicity: chronic Hepatic coma status: without hepatic coma Qualified Code(s): B18.2 - Chronic viral hepatitis C (7) Hypertension Current Visit: No Status: Chronic Qualifiers: Hypertension type: essential hypertension Qualified Code(s): I10 - Essential (primary) hypertension - Initial Treatment Plan Initial Treatment Plan: 1) Resume Zoloft 50 mg po daily and Zyprexa 20 mg po HS. 2) Continue inatient detoxification
[2018-12-28] MEDS: NICOTINE 21 MG/24 HOURS TOPICAL PATCH TD SCH (10:33)
[2018-12-28] MEDS: PRENATAL VITAMINS W/ FOLIC ACID TABLET (FP) PO SCH (10:33)
[2018-12-28] MEDS: amLODIPine BESYLATE 5 MG TABLET (FP) PO SCH (10:33)
[2018-12-28 10:59] LABS: HEMATOCRIT 33.8 % (35.4-49); HEMOGLOBIN 10.5 GM/dL (11.7-16.9); MCH 23.6 pg (25.7-33.7); MCHC 31.2 g/dl (32.0-35.9); MEAN CELL VOLUME 75.5 fl (80-96); MEAN PLT VOLUME 9.6 fl (7.5-11.1); PLATELET COUNT 156 K/MM3 (134-434); RBC 4.47 M/mm3 (4.00-5.60); RDW 15.2 % (11.9-15.9); WHITE BLOOD COUNT 4.1 K/mm3 (4.0-10.0)
--- NOTE | 2018-12-28 11:18 | PN ---
[facility] CIWA - CIWA Score Nausea/Vomitin-Mild Nausea/No Vomiting Muscle Tremors: 2 Anxiety: 2 Agitation: 2 Paroxysmal Sweats: 1-Minimal Palms Moist Orientation: 1-Uncertain about Date Tacttile Disturbances: 0-None Auditory Disturbances: 0-None Visual Disturbances: 0-None Headache: 0-None Present CIWA-Ar Total Score: 9 S Progress Note (SOAP) Subjective: feeling better today doing well with librium detox regimen tolerate food and fluid well Objective: 12/28/18 11:19 Vital Signs Temperature 97.4 F L 12/28/18 09:19 Pulse Rate 83 12/28/18 09:19 Respiratory Rate 18 12/28/18 09:19 Blood Pressure 123/70 12/28/18 09:19 O2 Sat by Pulse Oximetry (%) Laboratory Last Values WBC 4.1 K/mm3 (4.0-10.0) 12/28/18 07:50 RBC 4.47 M/mm3 (4.00-5.60) 12/28/18 07:50 Hgb 10.5 GM/dL (11.7-16.9) L 12/28/18 07:50 Hct 33.8 % (35.4-49) L D 12/28/18 07:50 MCV 75.5 fl (80-96) L 12/28/18 07:50 MCH 23.6 pg (25.7-33.7) L 12/28/18 07:50 MCHC 31.2 g/dl (32.0-35.9) L 12/28/18 07:50 RDW 15.2 % (11.9-15.9) 12/28/18 07:50 Plt Count 156 K/MM3 (134-434) 12/28/18 07:50 MPV 9.6 fl (7.5-11.1) 12/28/18 07:50 lab noted Assessment: 12/28/18 11:19 alcohol withdrawal sx Plan: continue detox
[2018-12-28 11:45] LABS: ALBUMIN 2.4 g/dl (3.4-5.0); ALK PHOS 113 U/L (45-117); ANION GAP 6 MMOL/L (8-16); BILIRUBIN,TOTAL 0.6 mg/dL (0.2-1); BLOOD UREA NITROGEN 7 mg/dL (7-18); CALCIUM 8.6 mg/dL (8.5-10.1); CHLORIDE 98 mmol/L (98-107); CO2 31 mmol/L (21-32); CREATININE 0.7 mg/dL (0.55-1.3); GLUCOSE,RANDOM 209 mg/dL (74-106); POTASSIUM 3.8 mmol/L (3.5-5.1); SGOT/AST 95 U/L (15-37); SGPT/ALT 97 U/L (13-61); SODIUM 135 mmol/L (136-145); TOT PROT 7.2 g/dl (6.4-8.2)
[2018-12-28] MEDS: MELATONIN 5 MG TABLETS PO PRN (22:12)
[2018-12-28] MEDS: THIAMINE HCL 100 MG TABLET (FP) PO SCH (22:12)
[2018-12-28] MEDS: chlordiazePOXIDE 5 MG CAPSULE PO SCH (22:13)
[2018-12-29] MEDS ORDERED: chlordiazePOXIDE HCL 10 MG CAPSULE PO PRN ×2 (05:00→21:00)
[2018-12-29] MEDS ORDERED: chlordiazePOXIDE HCL 10 MG CAPSULE PO SCH (05:00)
[2018-12-29] MEDS: chlordiazePOXIDE 5 MG CAPSULE PO SCH ×2 (05:29→13:42)
[2018-12-29] MEDS: amLODIPine BESYLATE 5 MG TABLET (FP) PO SCH (09:42)
[2018-12-29] MEDS: PRENATAL VITAMINS W/ FOLIC ACID TABLET (FP) PO SCH (09:42)
[2018-12-29] MEDS: NICOTINE 21 MG/24 HOURS TOPICAL PATCH TD SCH (09:43)
--- NOTE | 2018-12-29 11:04 | PN ---
[facility] CIWA - CIWA Score Nausea/Vomitin-No Nausea/No Vomiting Muscle Tremors: 1-None Visible, but [place] Anxiety: 1-Mildly Anxious Agitation: 1-Slight > Activity Paroxysmal Sweats: 1-Minimal Palms Moist Orientation: 0-Oriented Tacttile Disturbances: 0-None Auditory Disturbances: 0-None Visual Disturbances: 0-None Headache: 1-Very Mild CIWA-Ar Total Score: 5 S Progress Note (SOAP) Subjective: feeling better today discuss aftercare with staff Objective: 12/29/18 11:12 Vital Signs Temperature 96.3 F L 12/29/18 09:16 Pulse Rate 72 12/29/18 09:16 Respiratory Rate 18 12/29/18 09:16 Blood Pressure 123/79 12/29/18 09:16 O2 Sat by Pulse Oximetry (%) Laboratory Last Values WBC 4.1 K/mm3 (4.0-10.0) 12/28/18 07:50 RBC 4.47 M/mm3 (4.00-5.60) 12/28/18 07:50 Hgb 10.5 GM/dL (11.7-16.9) L 12/28/18 07:50 Hct 33.8 % (35.4-49) L D 12/28/18 07:50 MCV 75.5 fl (80-96) L 12/28/18 07:50 MCH 23.6 pg (25.7-33.7) L 12/28/18 07:50 MCHC 31.2 g/dl (32.0-35.9) L 12/28/18 07:50 RDW 15.2 % (11.9-15.9) 12/28/18 07:50 Plt Count 156 K/MM3 (134-434) 12/28/18 07:50 MPV 9.6 fl (7.5-11.1) 12/28/18 07:50 Sodium 135 mmol/L (136-145) L 12/28/18 07:50 Potassium 3.8 mmol/L (3.5-5.1) 12/28/18 07:50 Chloride 98 mmol/L (98-107) 12/28/18 07:50 Carbon Dioxide 31 mmol/L (21-32) 12/28/18 07:50 Anion Gap 6 MMOL/L (8-16) L 12/28/18 07:50 BUN 7 mg/dL (7-18) 12/28/18 07:50 Creatinine 0.7 mg/dL (0.55-1.3) 12/28/18 07:50 Creat Clearance w eGFR 114.27 (>60) 12/28/18 07:50 Random Glucose 209 mg/dL (74-106) H 12/28/18 07:50 Calcium 8.6 mg/dL (8.5-10.1) 12/28/18 07:50 Total Bilirubin 0.6 mg/dL (0.2-1) 12/28/18 07:50 AST 95 U/L (15-37) H 12/28/18 07:50 ALT 97 U/L (13-61) H 12/28/18 07:50 Alkaline Phosphatase 113 U/L (45-117) 12/28/18 07:50 Total Protein 7.2 g/dl (6.4-8.2) 12/28/18 07:50 Albumin 2.4 g/dl (3.4-5.0) L 12/28/18 07:50 RPR Titer Nonreactive (NONREACTIVE) 12/28/18 07:50 lab noted Assessment: 12/29/18 11:13 mild alcohol withdrawal sx Plan: continue detox
[2018-12-29] MEDS: SERTRALINE HCL 50 MG TABLET (FP) PO SCH (18:44)
[2018-12-29] MEDS: chlordiazePOXIDE HCL 10 MG CAPSULE PO SCH (21:49)
[2018-12-29] MEDS: THIAMINE HCL 100 MG TABLET (FP) PO SCH (21:49)
[2018-12-29] MEDS: MELATONIN 5 MG TABLETS PO PRN (21:50)
[2018-12-29] MEDS ORDERED: OLANZapine 10 MG TABLET PO SCH (22:00)
[2018-12-30] MEDS: chlordiazePOXIDE HCL 10 MG CAPSULE PO SCH (06:01)
--- NOTE | 2018-12-30 09:05 | DS ---
[facility] Detox Discharge Summary Admission Date: 12/27/18 Discharge Date: 12/30/18 - History Present History: Alcohol Dependence Additional Comments: 63 years old male admitted on 12/27/18 for alcohol withdrawal stabilization completed detox regimen aftercare [facility] Pertinent Past History: bring in medication list and lab report to aftercare appointment - Physical Exam Results Vital Signs: Vital Signs Temperature 96.9 F L 12/30/18 06:30 Pulse Rate 59 L 12/30/18 06:30 Respiratory Rate 18 12/30/18 06:30 Blood Pressure 108/66 12/30/18 06:30 O2 Sat by Pulse Oximetry (%) Pertinent Admission Physical Exam Findings: alcohol withdrawal sx Laboratory Last Values WBC 4.1 K/mm3 (4.0-10.0) 12/28/18 07:50 RBC 4.47 M/mm3 (4.00-5.60) 12/28/18 07:50 Hgb 10.5 GM/dL (11.7-16.9) L 12/28/18 07:50 Hct 33.8 % (35.4-49) L D 12/28/18 07:50 MCV 75.5 fl (80-96) L 12/28/18 07:50 MCH 23.6 pg (25.7-33.7) L 12/28/18 07:50 MCHC 31.2 g/dl (32.0-35.9) L 12/28/18 07:50 RDW 15.2 % (11.9-15.9) 12/28/18 07:50 Plt Count 156 K/MM3 (134-434) 12/28/18 07:50 MPV 9.6 fl (7.5-11.1) 12/28/18 07:50 Sodium 135 mmol/L (136-145) L 12/28/18 07:50 Potassium 3.8 mmol/L (3.5-5.1) 12/28/18 07:50 Chloride 98 mmol/L (98-107) 12/28/18 07:50 Carbon Dioxide 31 mmol/L (21-32) 12/28/18 07:50 Anion Gap 6 MMOL/L (8-16) L 12/28/18 07:50 BUN 7 mg/dL (7-18) 12/28/18 07:50 Creatinine 0.7 mg/dL (0.55-1.3) 12/28/18 07:50 Creat Clearance w eGFR 114.27 (>60) 12/28/18 07:50 Random Glucose 209 mg/dL (74-106) H 12/28/18 07:50 Calcium 8.6 mg/dL (8.5-10.1) 12/28/18 07:50 Total Bilirubin 0.6 mg/dL (0.2-1) 12/28/18 07:50 AST 95 U/L (15-37) H 12/28/18 07:50 ALT 97 U/L (13-61) H 12/28/18 07:50 Alkaline Phosphatase 113 U/L (45-117) 12/28/18 07:50 Total Protein 7.2 g/dl (6.4-8.2) 12/28/18 07:50 Albumin 2.4 g/dl (3.4-5.0) L 12/28/18 07:50 RPR Titer Nonreactive (NONREACTIVE) 12/28/18 07:50 lab noted - Treatment Hospital Course: Detox Protocol Followed, Detoxed Safely, Responded well, Discharged Condition Good, Rehab Referral Accepted Patient has Accepted a Rehab Referral to: [facility] - Medication Discharge Medications: Ambulatory Orders Olanzapine [Zyprexa] 20 mg PO HS #30 tablet 12/02/18 Sertraline HCl [Zoloft -] 50 mg PO DAILY #30 tablet 12/02/18 Amlodipine Besylate [Norvasc -] 5 mg PO DAILY #14 tablet 12/29/18 - Diagnosis (1) Alcohol dependence with uncomplicated withdrawal Status: Acute (2) Substance induced mood disorder Status: Suspected (3) Hepatitis C Status: Chronic Qualifiers: Viral hepatitis chronicity: chronic Hepatic coma status: without hepatic coma Qualified Code(s): B18.2 - Chronic viral hepatitis C (4) Hypertension Status: Chronic Qualifiers: Hypertension type: essential hypertension Qualified Code(s): I10 - Essential (primary) hypertension (5) Nicotine dependence Status: Acute Qualifiers: Nicotine product type: cigarettes Substance use status: in withdrawal Qualified Code(s): F17.213 - Nicotine dependence, cigarettes, with withdrawal - AMA Did Patient Leave Against Medical Advice: No
[2018-12-30 09:18] VITALS: BP 123/80; PULSE 67; TEMP 97.2
[2018-12-30] MEDS: PRENATAL VITAMINS W/ FOLIC ACID TABLET (FP) PO SCH (09:38)
[2018-12-30] MEDS: amLODIPine BESYLATE 5 MG TABLET (FP) PO SCH (09:38)
[2018-12-30] MEDS: SERTRALINE HCL 50 MG TABLET (FP) PO SCH (09:38)
[2018-12-30] MEDS: NICOTINE 21 MG/24 HOURS TOPICAL PATCH TD SCH (09:39)
== END 2018-12-30 12:18 | disposition home or self-care (01) | DRG 775 ==
LOC: YASAS 11:46 → Y3N 19:51
PROVIDERS: ADMIT Surgery; ATTEND Surgery
PROC: HZ2ZZZZ Detoxification Services for Substance Abuse Treatment (ICD-10-PCS; principal; 2018-12-27)
DX: F10.230 Alcohol dependence with withdrawal, uncomplicated (principal); F17.213 Nicotine dependence, cigarettes, with withdrawal; F19.24 Other psychoactive substance dependence with psychoactive substance-induced mood disorder; F10.24 Alcohol dependence with alcohol-induced mood disorder; F20.1 Disorganized schizophrenia; F10.282 Alcohol dependence with alcohol-induced sleep disorder; I10 Essential (primary) hypertension; B18.2 Chronic viral hepatitis C; K00.0 Anodontia; Z88.8 Allergy status to other drugs, medicaments and biological substances
CPT/HCPCS: 36415; 80053; 85027; 86593

== ENCOUNTER 2019-02-23 16:43 | Inpatient (IN) | payer OTHER ==
[2019-02-23 19:17] VITALS: BMI 22.8
--- NOTE | 2019-02-23 21:11 | HP ---
CIWA Score Nausea/Vomitin Muscle Tremors: 3 Anxiety: 3 Agitation: 3 Paroxysmal Sweats: 2 Orientation: 0-Oriented Tacttile Disturbances: 0-None Auditory Disturbances: 0-None Visual Disturbances: 0-None (voiting x 2) Headache: 3-Moderate CIWA-Ar Total Score: 17 - Admission Criteria OASAS Guidelines: Admission for Medically Managed Detox: Requires at least one of the followin. CIWA greater than 12 2. Seizures within the past 24 hours 3. Delirium tremens within the past 24 hours 4. Hallucinations within the past 24 hours 5. Acute intervention needed for co occurring medical disorder 6. Acute intervention needed for co occurring psychiatric disorder 7. Severe withdrawal that cannot be handled at a lower level of care (continued vomiting, continued diarrhea, abnormal vital signs) requiring intravenous medication and/or fluids 8. Admission ROS [facility] Chief Complaint: Alcohol withdrawal symptoms Allergies/Adverse Reactions: Allergies Allergy/AdvReac Type Severity Reaction Status Date / Time haloperidol [From Haldol] AdvReac Severe stiffness Verified 02/23/19 19:09 haloperidol lactate AdvReac Severe stiffness Verified 02/23/19 19:09 [From Haldol] risperidone [From Risperdal] AdvReac Severe stiffness Verified 02/23/19 19:09 History of Present Illness: 63 years old patient with a long history of alcohol dependence is seeking admission to detox. Patient has been in multiple detox and reports insignificant period of sobriety. He has medical history of hypertension, Hep C and depression. He denies suicidal ideation at this time. Patient's drug screen result was positive for opiates. Patient denies opiate use stating that his cocaine may have been contaminated. Exam Limitations: No Limitations - Ebola screening Have you traveled outside of the country in the last 21 days: No Have you had contact with anyone from an Ebola affected area: No Do you have a fever: No - Review of Systems Constitutional: Chills, Malaise, Changes in sleep, Weakness EENT: reports: No Symptoms Reported Respiratory: reports: No Symptoms reported Cardiac: reports: No Symptoms Reported GI: reports: Poor Appetite, Poor Fluid Intake, Vomiting, Abdominal cramping : reports: No Symptoms Reported Musculoskeletal: reports: Joint Pain, Muscle Pain Integumentary: reports: Dryness, Flushing Neuro: reports: Headache, Tremors Endocrine: reports: No Symptoms Reported Hematology: reports: No Symptoms Reported Psychiatric: reports: No Sypmtoms Reported, Orientated x3 Other Systems: Reviewed and Negative Patient History - Patient Medical History Hx Anemia: No Hx Asthma: No Hx Chronic Obstructive Pulmonary Disease (COPD): No Hx Cancer: No Hx Cardiac Disorders: No Hx Congestive Heart Failure: No Hx Hypertension: Yes (Norvasc ) Hx Hypercholesterolemia: No Hx Pacemaker: No HX Cerebrovascular Accident: No Hx Seizures: No Hx Dementia: No Hx Diabetes: No Hx Gastrointestinal Disorders: No Hx Liver Disease: No Hx Genitourinary Disorders: No Hx Sexually Transmitted Disorders: No Hx Renal Disease (ESRD): No Hx Thyroid Disease: No Hx Human Immunodeficiency Virus (HIV): No (Negative 2017) Hx Hepatitis C: Yes (Not treated) Hx Depression: Yes (Not on medication) Hx Suicide Attempt: No Hx Bipolar Disorder: No Hx Schizophrenia: Yes - Patient Surgical History Past Surgical History: Yes Hx Neurologic Surgery: No Hx Cataract Extraction: No Hx Cardiac Surgery: No Hx Lung Surgery: No Hx Breast Surgery: No Hx Breast Biopsy: No Hx Abdominal Surgery: Yes (abdomen perforated peptic ulcer in 1991) Hx Appendectomy: No Hx Cholecystectomy: No Hx Genitourinary Surgery: No Hx Section: No Hx Orthopedic Surgery: No Hx Hysterectomy: No Anesthesia Reaction: No - PPD History Previous Implant?: Yes Documented Results: Negative w/proof Implanted On Prior [facility] Admission?: Yes Date: 04/13/18 Results: 0mm PPD to be Administered?: No - Reproductive History Patient is a Female of Child Bearing Age (11 -55 yrs old): No (male) - Smoking Cessation Smoking history: Current every day smoker Have you smoked in the past 12 months: Yes Aproximately how many cigarettes per day: 20 Cigars Per Day: 0 Hx Chewing Tobacco Use: No Initiated information on smoking cessation: Yes 'Breaking Loose' booklet given: 02/23/19 - Substance & Tx. History Hx Alcohol Use: Yes Hx Substance Use: Yes Substance Use Type: Cocaine Hx Substance Use Treatment: Yes ([facility]) - Substances abused Alcohol Substance route: Oral Frequency: Daily Amount used: 1 PINT VODKA 4 BEERS Age of first use: 24 Date of last use: 02/23/19 Cocaine Other (specify): SNIFF Frequency: Daily Date of last use: 02/23/19 Family Disease History - Family Disease History Family Disease History: [place]: Father (), Mother (), Other: Father , Mother, Sister (no sister) Admission Physical Exam [facility] - Vital Signs Vital Signs: Vital Signs - 24 hr 02/23/19 19:08 Temperature 98.2 F Pulse Rate 82 Respiratory 18 Rate Blood Pressure 163/96 - Physical General Appearance: Yes: Disheveled, Moderate Distress, Tremorous, Anxious HEENTM: Yes: Nasal Congestion Respiratory: Yes: Lungs Clear, Normal Breath Sounds, No Respiratory Distress Neck: Yes: Supple Breast: Yes: Breast Exam Deferred Cardiology: Yes: Regular Rhythm, Regular Rate Abdominal: Yes: Normal Bowel Sounds, Decreased BS Back: Yes: Normal Inspection Musculoskeletal: Yes: Muscle Pain, Muscle weakness Extremities: Yes: Tremors Neurological: Yes: Alert, Normal Mood/Affect Integumentary: Yes: Warm Lymphatic: Yes: Within Normal Limits - Diagnostic (1) Depression Current Visit: Yes Status: Chronic Qualifiers: Depression Type: unspecified Qualified Code(s): F32.9 - Major depressive disorder, single episode, unspecified (2) Alcohol dependence with uncomplicated withdrawal Current Visit: Yes Status: Chronic (3) Nicotine dependence Current Visit: Yes Status: Chronic Qualifiers: Nicotine product type: cigarettes Substance use status: in withdrawal Qualified Code(s): F17.213 - Nicotine dependence, cigarettes, with withdrawal (4) Cocaine dependence Current Visit: Yes Status: Chronic Qualifiers: Substance use status: uncomplicated Qualified Code(s): F14.20 - Cocaine dependence, uncomplicated (5) Hepatitis C Current Visit: Yes Status: Chronic Qualifiers: Viral hepatitis chronicity: chronic Hepatic coma status: without hepatic coma Qualified Code(s): B18.2 - Chronic viral hepatitis C (6) Hypertension Current Visit: Yes Status: Chronic Qualifiers: Hypertension type: essential hypertension Qualified Code(s): I10 - Essential (primary) hypertension Cleared for Admission S - Detox or Rehab [facility] Level of Care: Medically Managed Detox Regimen/Protocol: Librium Breathalyzer - Breathalyzer Breathalyzer: 0 Urine Drug Screen - Test Device Lot number: [id number] Expiration date: 07/25/20 - Control Is test valid?: Yes - Results Drug screen NEGATIVE: No Urine drug screen results: PAOLO-Cocaine, BZO-Benzodiazepines Inpatient Rehab Admission - Rehab Decision to Admit Inpatient rehab admission?: No
[2019-02-23] MEDS ORDERED: MAGNESIUM CITRATE 300 ML BOTTLE PO PRN (21:31)
[2019-02-23] MEDS ORDERED: METHOCARBAMOL 500 MG TABLET PO PRN (21:31)
[2019-02-23] MEDS ORDERED: hydrOXYzine PAMOATE 25 MG CAPSULE (FP) PO PRN (21:31)
[2019-02-23] MEDS ORDERED: ACETAMINOPHEN 325 MG TABLET (FP) PO PRN ×2 (21:31)
[2019-02-23] MEDS ORDERED: MELATONIN 5 MG TABLETS PO PRN (21:31)
[2019-02-23] MEDS ORDERED: IBUPROFEN 400 MG TABLET (FP) PO PRN (21:31)
[2019-02-23] MEDS ORDERED: chlordiazePOXIDE HCL 25 MG CAPSULE PO PRN (21:31)
[2019-02-23] MEDS ORDERED: BISMUTH SUBSALICYLATE 524 MG/30 ML UD PO PRN (21:31)
[2019-02-23] MEDS ORDERED: NICOTINE POLACRILEX 2 MG GUM BUC PRN (21:31)
[2019-02-23] MEDS ORDERED: MENTHOL/PHENOL 1 EACH UD MM PRN (21:31)
[2019-02-23] MEDS ORDERED: MAGNESIUM HYDROX 2400MG/30ML ORAL SUSPENSION 30 ML CUP PO PRN (21:31)
[2019-02-23] MEDS ORDERED: MAG HYDROX/AL HYDROX/SIMETH 30 ML UNIT-DOSE CUP PO PRN (21:31)
[2019-02-23] MEDS: chlordiazePOXIDE HCL 25 MG CAPSULE PO SCH (22:33)
[2019-02-23] MEDS: THIAMINE HCL 100 MG TABLET (FP) PO SCH (22:33)
[2019-02-23] MEDS: amLODIPine BESYLATE 5 MG TABLET (FP) PO SCH (22:33)
[2019-02-24] MEDS: chlordiazePOXIDE HCL 25 MG CAPSULE PO SCH ×4 (05:26→22:36)
[2019-02-24 09:53] LABS: HEMATOCRIT 40.4 % (35.4-49); HEMOGLOBIN 12.5 GM/dL (11.7-16.9); MCH 24.9 pg (25.7-33.7); MCHC 30.9 g/dl (32.0-35.9); MEAN CELL VOLUME 80.7 fl (80-96); MEAN PLT VOLUME 9.5 fl (7.5-11.1); PLATELET COUNT 135 K/MM3 (134-434); RBC 5.01 M/mm3 (4.00-5.60); WHITE BLOOD COUNT 3.2 K/mm3 (4.0-10.0)
[2019-02-24 10:03] LABS: ALBUMIN 2.6 g/dl (3.4-5.0); BILIRUBIN,TOTAL 0.3 mg/dL (0.2-1); BLOOD UREA NITROGEN 10.1 mg/dL (7-18); CALCIUM 8.4 mg/dL (8.5-10.1); CREATININE 0.8 mg/dL (0.55-1.3); POTASSIUM 3.5 mmol/L (3.5-5.1); TOT PROT 7.2 g/dl (6.4-8.2)
--- NOTE | 2019-02-24 10:28 | PN ---
S CIWA - CIWA Score Nausea/Vomitin-Mild Nausea/No Vomiting Muscle Tremors: 2 Anxiety: 2 Agitation: 2 Paroxysmal Sweats: 1-Minimal Palms Moist Orientation: 0-Oriented Tacttile Disturbances: 0-None Auditory Disturbances: 0-None Visual Disturbances: 0-None Headache: 1-Very Mild CIWA-Ar Total Score: 9 BHS Progress Note (SOAP) Subjective: pt states he would like to go to long-term rehab. Also c/o foot pain for the last month- pt states he is homeless and walks a lot and sleeps on the streets O: Laboratory Tests 02/24/19 02/24/19 06:30 06:30 WBC 3.2 L RBC 5.01 Hgb 12.5 Hct 40.4 D MCV 80.7 MCH 24.9 L MCHC 30.9 L RDW 17.0 H Plt Count 135 MPV 9.5 Sodium 137 Potassium 3.5 Chloride 102 Carbon Dioxide 31 Anion Gap 4 L BUN 10.1 Creatinine 0.8 Est GFR (CKD-EPI)AfAm 110.96 Est GFR (CKD-EPI)NonAf 95.74 Random Glucose 167 H Calcium 8.4 L Total Bilirubin 0.3 AST 84 H ALT 114 H Alkaline Phosphatase 131 H Total Protein 7.2 Albumin 2.6 L increased LFT's high RDW foot with 3 small areas of tenderness,erythema, no skin breakage, no streaking, near first toe plantar aspect and dorsal aspect a/p: continue alcohol detox- increased liver enzymes cellulitis- will start keflex antibiotics and monitor
[2019-02-24] MEDS: PRENATAL VITAMINS W/ FOLIC ACID TABLET (FP) PO SCH (10:54)
[2019-02-24] MEDS: amLODIPine BESYLATE 5 MG TABLET (FP) PO SCH (10:54)
[2019-02-24] MEDS: NICOTINE 14 MG/24 HOURS TOPICAL PATCH TD SCH (10:54)
[2019-02-24] MEDS: CEPHALEXIN MONOHYDRATE 500 MG CAPSULE (UD) PO SCH ×2 (10:55→22:36)
--- NOTE | 2019-02-24 13:46 | EKG ---
Test Reason : Blood Pressure : / mmHG Vent. Rate : 060 BPM Atrial Rate : 060 BPM P-R Int : 120 ms QRS Dur : 104 ms QT Int : 444 ms P-R-T Axes : 060 057 063 degrees QTc Int : 444 ms NORMAL SINUS RHYTHM MODERATE VOLTAGE CRITERIA FOR LVH, MAY BE NORMAL VARIANT BORDERLINE ECG WHEN COMPARED WITH ECG OF 11-APR-2018 19:36, NO SIGNIFICANT CHANGE WAS FOUND Confirmed by MD YANCI, KLAUS ([id number]) on 02/24/2019 1:46:30 PM Referred By: Confirmed By:KLAUS PETE MD
--- NOTE | 2019-02-24 18:36 | CONSULT ---
[facility] Psychiatric Consult - Data Date of interview: 02/24/19 Admission source: [facility] Identifying data: Readmission to [facility] for this 63 y/o AA male self- referred for detoxification treatment (alcohol, cocaine). Examined at [address] [place] [address]. Patient is , a father of six, homeless, unemployed and supported on SSI benefits. Substance Abuse History: Discussed in this session. details in current [facility] report as follows : Smoking history: Current every day smoker. Have you smoked in the past 12 months: Yes. Aproximately how many cigarettes per day: 20. Cigars Per Day: 0. Hx Chewing Tobacco Use: No. Initiated information on smoking cessation: Yes. 'Breaking Loose' booklet given: 02/23/19. - Substance & Tx. History. Hx Alcohol Use: Yes. Hx Substance Use: Yes. Substance Use Type : Cocaine. Hx Substance Use Treatment: Yes ([facility]). - Substances abused. Alcohol. Substance route: Oral. Frequency: Daily. Amount used: 1 PINT VODKA 4 BEERS. Age of first use: 24. Date of last use: 02/23/19. Cocaine. Other (specify): SNIFF. Frequency: Daily. Date of last use: 02/23/19 Medical History: Remarkable for a history of surgery for perforated peptic ulcer , hepatitis C and hypertension. Psychiatric History: Patient admits to a history of multiple psychiatric hospitalizations ([facility], [facility], [facility], [facility]). Diagnosed with Paranoid Schizophrenia (onset at age 21). Mr Saini has been lost to psychiatric follow-up since his discharge from [facility] on 12/02/18. Patient relies on visits to [facility] settings for refills. maintenace medications : zoloft 50 mg/day + olanzapine 20 mg/hs. No reported history of suicide attempts. Physical/Sexual Abuse/Trauma History: Patient denies. Additional Comment: Urine drug screen results: PAOLO-Cocaine, BZO- Benzodiazepines. Noted. Mental Status Exam - Mental Status Exam Alert and Oriented to: Time, Place, Person Cognitive Function: Good Patient Appearance: Well Groomed (edentulous) Mood: Withdrawn Affect: Appropriate, Normal Range Patient Behavior: Fatigued, Cooperative Speech Pattern: Clear, Appropriate Voice Loudness: Normal Thought Process: Goal Oriented Thought Disorder: Not Present Hallucinations: Denies Suicidal Ideation: Denies Homicidal Ideation: Denies Insight/Judgement: Poor Sleep: Well Appetite: Good Muscle strength/Tone: Normal Gait/Station: Normal Psychiatric Findings - Problem List ([place] 1, 2,3) (1) Alcohol dependence with uncomplicated withdrawal Current Visit: Yes Status: Acute (2) Cocaine dependence Current Visit: Yes Status: Chronic Qualifiers: Substance use status: uncomplicated Qualified Code(s): F14.20 - Cocaine dependence, uncomplicated (3) Nicotine dependence Current Visit: Yes Status: Chronic Qualifiers: Nicotine product type: cigarettes Substance use status: in withdrawal Qualified Code(s): F17.213 - Nicotine dependence, cigarettes, with withdrawal (4) Schizophrenia Current Visit: Yes Status: Chronic Qualifiers: Schizophrenia type: disorganized schizophrenia Qualified Code(s): F20.1 - Disorganized schizophrenia (5) Non-compliance Current Visit: Yes Status: Chronic - Initial Treatment Plan Initial Treatment Plan: Psychoeducation. Records revisited ([facility]). Sleep hygiene. Detoxification. AA meetings. Relapse prevention (MAT) : discussed with patient. Medications : olanzapine 10 mg po hs + Zoloft 50 mg po daily. Side effects/benefits discussed in this session. Mr Parveen saha to this plan of care. Verbal consent given to MD. Saleh.
[2019-02-24] MEDS: OLANZapine 10 MG TABLET PO SCH (22:36)
[2019-02-24] MEDS: THIAMINE HCL 100 MG TABLET (FP) PO SCH (22:36)
[2019-02-25] MEDS: chlordiazePOXIDE HCL 25 MG CAPSULE PO SCH ×4 (05:14→22:14)
[2019-02-25] MEDS: amLODIPine BESYLATE 5 MG TABLET (FP) PO SCH (10:24)
[2019-02-25] MEDS: SERTRALINE HCL 50 MG TABLET (FP) PO SCH (10:24)
[2019-02-25] MEDS: PRENATAL VITAMINS W/ FOLIC ACID TABLET (FP) PO SCH (10:24)
[2019-02-25] MEDS: CEPHALEXIN MONOHYDRATE 500 MG CAPSULE (UD) PO SCH ×2 (10:24→22:14)
[2019-02-25] MEDS: NICOTINE 14 MG/24 HOURS TOPICAL PATCH TD SCH (10:25)
--- NOTE | 2019-02-25 15:22 | PN ---
[facility] CIWA - CIWA Score Nausea/Vomitin-No Nausea/No Vomiting Muscle Tremors: 3 Anxiety: 1-Mildly Anxious Agitation: 1-Slight > Activity Paroxysmal Sweats: 2 Orientation: 2-Disoriented Date<2 days Tacttile Disturbances: 1-Very Mild Itch/Numbness Auditory Disturbances: 0-None Visual Disturbances: 0-None Headache: 0-None Present CIWA-Ar Total Score: 10 S Progress Note (SOAP) Subjective: Anxious, Sweating, Tremors. Objective: PATIENT A & O X 2 (UNCERTAIN ABOUT CURRENT DAY / DATE). PATIENT OBSERVED AMBULATING ON UNIT UNASSISTED. IN NO ACUTE DISTRESS. 02/25/19 15:17 Vital Signs Temperature 96.6 F L 02/25/19 13:13 Pulse Rate 102 H 02/25/19 13:13 Respiratory Rate 18 02/25/19 13:13 Blood Pressure 120/80 02/25/19 13:13 O2 Sat by Pulse Oximetry (%) Laboratory Tests 02/24/19 02/24/19 02/24/19 06:30 06:30 06:30 WBC 3.2 L RBC 5.01 Hgb 12.5 Hct 40.4 D MCV 80.7 MCH 24.9 L MCHC 30.9 L RDW 17.0 H Plt Count 135 MPV 9.5 Sodium 137 Potassium 3.5 Chloride 102 Carbon Dioxide 31 Anion Gap 4 L BUN 10.1 Creatinine 0.8 Est GFR (CKD-EPI)AfAm 110.96 Est GFR (CKD-EPI)NonAf 95.74 Random Glucose 167 H Calcium 8.4 L Total Bilirubin 0.3 AST 84 H ALT 114 H Alkaline Phosphatase 131 H Total Protein 7.2 Albumin 2.6 L RPR Titer Nonreactive LABS NOTED. PATIENT HAS HAD LOW WBC, ELEVATED LIVER ENZYME LEVELS, AND ELEVATED RANDOM GLUCOSE LEVELS ON PREVIOUS ADMISSIONS. 02/25/19 15:19 Assessment: 02/25/19 15:21 WITHDRAWAL SYMPTOMS. ELEVATED LIVER ENZYMES (ALT, AST, ALKALINE PHOSPHATASE). HYPERGLYCEMIA. 02/25/19 15:22 Plan: CONTINUE DETOX. INCREASE DAILY PO WATER INTAKE. FASTING GLUCOSE LEVEL TOMORROW AM FOR ELEVATED ADMISSION RANDOM GLUCOSE LEVEL. HEPATIC FUNCTION PANEL TOMORROW AM FOR ELEVATED LIVER ENZYME LEVELS NOTE DON DETOX ADMISSION LABORATORY ASSESSMENT.
[2019-02-25] MEDS: OLANZapine 10 MG TABLET PO SCH (22:14)
[2019-02-25] MEDS: METHYL SALICYLATE/MENTHOL OINT 30 GM TUBE TP SCH (22:15)
[2019-02-25] MEDS: THIAMINE HCL 100 MG TABLET (FP) PO SCH (22:15)
[2019-02-26] MEDS ORDERED: chlordiazePOXIDE HCL 10 MG CAPSULE PO PRN
[2019-02-26] MEDS: chlordiazePOXIDE HCL 10 MG CAPSULE PO SCH ×4 (06:12→22:08)
[2019-02-26] MEDS: PRENATAL VITAMINS W/ FOLIC ACID TABLET (FP) PO SCH (10:18)
[2019-02-26] MEDS: SERTRALINE HCL 50 MG TABLET (FP) PO SCH (10:18)
[2019-02-26] MEDS: METHYL SALICYLATE/MENTHOL OINT 30 GM TUBE TP SCH ×2 (10:18→22:08)
[2019-02-26] MEDS: CEPHALEXIN MONOHYDRATE 500 MG CAPSULE (UD) PO SCH ×2 (10:18→22:07)
[2019-02-26] MEDS: amLODIPine BESYLATE 5 MG TABLET (FP) PO SCH (10:18)
[2019-02-26] MEDS: NICOTINE 14 MG/24 HOURS TOPICAL PATCH TD SCH (10:19)
[2019-02-26 13:38] LABS: ALBUMIN 2.7 g/dl (3.4-5.0); BILIRUBIN,DIRECT 0.2 mg/dL (0.0-0.2); BILIRUBIN,TOTAL 0.9 mg/dL (0.2-1); TOT PROT 7.3 g/dl (6.4-8.2)
--- NOTE | 2019-02-26 15:06 | PN ---
S CIWA - CIWA Score Nausea/Vomitin-No Nausea/No Vomiting Muscle Tremors: 2 Anxiety: 2 Agitation: 2 Paroxysmal Sweats: No Perspiration Orientation: 0-Oriented Tacttile Disturbances: 0-None Auditory Disturbances: 0-None Visual Disturbances: 0-None Headache: 0-None Present CIWA-Ar Total Score: 6 BHS Progress Note (SOAP) Subjective: feeling better today social with peers in day room discuss aftercare with staff that [facility] Objective: 02/26/19 15:04 Vital Signs Temperature 98.6 F 02/26/19 13:16 Pulse Rate 89 02/26/19 13:16 Respiratory Rate 18 02/26/19 13:16 Blood Pressure 105/75 02/26/19 13:16 O2 Sat by Pulse Oximetry (%) Laboratory Last Values WBC 3.2 K/mm3 (4.0-10.0) L 02/24/19 06:30 RBC 5.01 M/mm3 (4.00-5.60) 02/24/19 06:30 Hgb 12.5 GM/dL (11.7-16.9) 02/24/19 06:30 Hct 40.4 % (35.4-49) D 02/24/19 06:30 MCV 80.7 fl (80-96) 02/24/19 06:30 MCH 24.9 pg (25.7-33.7) L 02/24/19 06:30 MCHC 30.9 g/dl (32.0-35.9) L 02/24/19 06:30 RDW 17.0 % (11.9-15.9) H 02/24/19 06:30 Plt Count 135 K/MM3 (134-434) 02/24/19 06:30 MPV 9.5 fl (7.5-11.1) 02/24/19 06:30 Sodium 137 mmol/L (136-145) 02/24/19 06:30 Potassium 3.5 mmol/L (3.5-5.1) 02/24/19 06:30 Chloride 102 mmol/L (98-107) 02/24/19 06:30 Carbon Dioxide 31 mmol/L (21-32) 02/24/19 06:30 Anion Gap 4 MMOL/L (8-16) L 02/24/19 06:30 BUN 10.1 mg/dL (7-18) 02/24/19 06:30 Creatinine 0.8 mg/dL (0.55-1.3) 02/24/19 06:30 Est GFR (CKD-EPI)AfAm 110.96 02/24/19 06:30 Est GFR (CKD-EPI)NonAf 95.74 02/24/19 06:30 Random Glucose 167 mg/dL (74-106) H 02/24/19 06:30 Fasting Glucose 132 mg/dL (74-106) H 02/26/19 08:00 Calcium 8.4 mg/dL (8.5-10.1) L 02/24/19 06:30 Total Bilirubin 0.9 mg/dL (0.2-1) 02/26/19 08:00 Direct Bilirubin 0.2 mg/dL (0.0-0.2) 02/26/19 08:00 AST 133 U/L (15-37) H 02/26/19 08:00 ALT 133 U/L (13-61) H 02/26/19 08:00 Alkaline Phosphatase 117 U/L (45-117) 02/26/19 08:00 Total Protein 7.3 g/dl (6.4-8.2) 02/26/19 08:00 Albumin 2.7 g/dl (3.4-5.0) L 02/26/19 08:00 RPR Titer Nonreactive (NONREACTIVE) 02/24/19 06:30 lab noted repeat ast 02/26/19 15:06 Assessment: 02/26/19 15:06 alcohol withdrawal sx Plan: continue alcohol detox
[2019-02-26] MEDS: OLANZapine 10 MG TABLET PO SCH (22:08)
[2019-02-26] MEDS: THIAMINE HCL 100 MG TABLET (FP) PO SCH (22:08)
[2019-02-27] MEDS ORDERED: chlordiazePOXIDE HCL 10 MG CAPSULE PO SCH (05:00)
[2019-02-27 09:18] VITALS: BP 117/71; PULSE 83; TEMP 97.1
[2019-02-27] MEDS: CEPHALEXIN MONOHYDRATE 500 MG CAPSULE (UD) PO SCH (09:19)
[2019-02-27] MEDS: METHYL SALICYLATE/MENTHOL OINT 30 GM TUBE TP SCH (09:19)
[2019-02-27] MEDS: PRENATAL VITAMINS W/ FOLIC ACID TABLET (FP) PO SCH (09:19)
[2019-02-27] MEDS: SERTRALINE HCL 50 MG TABLET (FP) PO SCH (09:20)
[2019-02-27] MEDS: amLODIPine BESYLATE 5 MG TABLET (FP) PO SCH (09:20)
[2019-02-27] MEDS: NICOTINE 14 MG/24 HOURS TOPICAL PATCH TD SCH (09:21)
--- NOTE | 2019-02-27 17:55 | DS ---
[facility] Detox Discharge Summary Admission Date: 02/23/19 Discharge Date: 02/27/19 - History Present History: Alcohol Dependence, Cocaine Dependence Additional Comments: [facility]ING [facility] [place] FOR AFTERCARE. PATIENT ADVISED TO FOLLOW-UP WITH [facility] AFTER DISCHARGE FROM REHAB FOR GENERAL MEDICAL ASSESSMENT AND FOR ELEVATED GLUCOSE LEVELS, LOW WBC LEVEL, AND FOR ELEVATED LIVER ENZYME LEVELS NOTED ON DETOX ADMISSION LABORATORY ASSESSMENT. PATIENT VERBALIZED UNDERSTANDING OF RECOMMENDATION. COPIES OF RESULTS OF ALL LABS DRAWN WHILE ADMITTED FOR DETOX GIVEN TO PATIENT AT TIME OF DISCHARGE FROM DETOX UNIT. PATIENT WAS DISCHARGED FROM DETOX UNIT IN STABLE MEDICAL CONDITION. Pertinent Past History: HTN, Hep C, Depression, Schziophrenia, Nicotine Dependence, Hyperglycemia, Leukopenia, Elevated Liver Enzymes. - Physical Exam Results Vital Signs: Vital Signs Temperature 97.1 F L 02/27/19 09:17 Pulse Rate 83 02/27/19 09:17 Respiratory Rate 18 02/27/19 09:17 Blood Pressure 117/71 02/27/19 09:17 O2 Sat by Pulse Oximetry (%) Pertinent Admission Physical Exam Findings: WITHDRAWAL SYMPTOMS. Laboratory Tests 02/24/19 02/24/19 02/24/19 06:30 06:30 06:30 WBC 3.2 L RBC 5.01 Hgb 12.5 Hct 40.4 D MCV 80.7 MCH 24.9 L MCHC 30.9 L RDW 17.0 H Plt Count 135 MPV 9.5 Sodium 137 Potassium 3.5 Chloride 102 Carbon Dioxide 31 Anion Gap 4 L BUN 10.1 Creatinine 0.8 Est GFR (CKD-EPI)AfAm 110.96 Est GFR (CKD-EPI)NonAf 95.74 Random Glucose 167 H Fasting Glucose Calcium 8.4 L Total Bilirubin 0.3 Direct Bilirubin AST 84 H ALT 114 H Alkaline Phosphatase 131 H Total Protein 7.2 Albumin 2.6 L RPR Titer Nonreactive 02/26/19 02/27/19 08:00 07:50 WBC RBC Hgb Hct MCV MCH MCHC RDW Plt Count MPV Sodium Potassium Chloride Carbon Dioxide Anion Gap BUN Creatinine Est GFR (CKD-EPI)AfAm Est GFR (CKD-EPI)NonAf Random Glucose Fasting Glucose 132 H Calcium Total Bilirubin 0.9 Direct Bilirubin 0.2 AST 133 H 102 H ALT 133 H Alkaline Phosphatase 117 Total Protein 7.3 Albumin 2.7 L RPR Titer LABS NOTED. - Treatment Hospital Course: Detox Protocol Followed, Detoxed Safely, Responded well, Discharged Condition Good, Rehab Referral Accepted Patient has Accepted a Rehab Referral to: [facility] ([place], [place]). - Medication Discharge Medications: Ambulatory Orders Olanzapine [Zyprexa] 20 mg PO HS #30 tablet 12/02/18 Sertraline HCl [Zoloft -] 50 mg PO DAILY #30 tablet 12/02/18 Amlodipine Besylate [Norvasc -] 5 mg PO DAILY #14 tablet 12/29/18 - Diagnosis (1) Alcohol dependence with uncomplicated withdrawal Status: Acute (2) Elevated liver enzymes Status: Acute (3) Hyperglycemia Status: Acute (4) Leukopenia Status: Acute Qualifiers: Leukopenia type: unspecified Qualified Code(s): D72.819 - Decreased white blood cell count, unspecified (5) Cocaine dependence, uncomplicated Status: Chronic (6) Hepatitis C Status: Chronic Qualifiers: Viral hepatitis chronicity: chronic Hepatic coma status: without hepatic coma Qualified Code(s): B18.2 - Chronic viral hepatitis C (7) Hypertension Status: Chronic Qualifiers: Hypertension type: essential hypertension Qualified Code(s): I10 - Essential (primary) hypertension (8) Nicotine dependence Status: Chronic Qualifiers: Nicotine product type: cigarettes Substance use status: in withdrawal Qualified Code(s): F17.213 - Nicotine dependence, cigarettes, with withdrawal (9) Non-compliance Status: Chronic - AMA Did Patient Leave Against Medical Advice: No
[2019-02-28] MEDS ORDERED: chlordiazePOXIDE HCL 10 MG CAPSULE PO ONE (05:00)
== END 2019-02-27 11:53 | disposition home or self-care (01) | DRG 774 ==
LOC: YASAS 16:43 → Y3N 21:54
PROVIDERS: ADMIT Surgery; ATTEND Surgery
PROC: HZ2ZZZZ Detoxification Services for Substance Abuse Treatment (ICD-10-PCS; principal; 2019-02-23)
DX: F10.230 Alcohol dependence with withdrawal, uncomplicated (principal); F14.20 Cocaine dependence, uncomplicated; F17.210 Nicotine dependence, cigarettes, uncomplicated; F20.1 Disorganized schizophrenia; F32.9 Major depressive disorder, single episode, unspecified; I10 Essential (primary) hypertension; B18.2 Chronic viral hepatitis C; D72.819 Decreased white blood cell count, unspecified; L03.119 Cellulitis of unspecified part of limb; R73.9 Hyperglycemia, unspecified; R94.5 Abnormal results of liver function studies; Z59.0 Homelessness; Z91.19 Patient's noncompliance with other medical treatment and regimen
CPT/HCPCS: 36415; 80053; 80076; 82947; 84450; 85027; 86593; 93005; 93010

== ENCOUNTER 2020-08-27 15:09 | Inpatient (IN) | payer OTHER ==
[2020-08-27] MEDS ORDERED: IBUPROFEN 400 MG TABLET (FP) PO PRN (17:25)
[2020-08-27] MEDS ORDERED: BISMUTH SUBSALICYLATE 524 MG/30 ML UD PO PRN (17:25)
[2020-08-27] MEDS ORDERED: METHOCARBAMOL 500 MG TABLET PO PRN (17:25)
[2020-08-27] MEDS ORDERED: chlordiazePOXIDE HCL 25 MG CAPSULE PO PRN (17:25)
[2020-08-27] MEDS ORDERED: MAGNESIUM CITRATE 300 ML BOTTLE PO PRN (17:25)
[2020-08-27] MEDS ORDERED: MAG HYDROX/AL HYDROX/SIMETH 30 ML UNIT-DOSE CUP PO PRN (17:25)
[2020-08-27] MEDS ORDERED: MAGNESIUM HYDROX 2400MG/30ML ORAL SUSPENSION 30 ML CUP PO PRN (17:25)
[2020-08-27] MEDS ORDERED: ONDANSETRON *ODT* 4 MG TABLET SL PRN (17:25)
[2020-08-27] MEDS ORDERED: MENTHOL/PHENOL 1 EACH UD MM PRN (17:25)
[2020-08-27] MEDS ORDERED: ACETAMINOPHEN 325 MG TABLET (FP) PO PRN ×2 (17:25)
[2020-08-27] MEDS ORDERED: NICOTINE POLACRILEX 2 MG GUM BUC PRN (17:25)
[2020-08-27 18:03] VITALS: BMI 22.6
[2020-08-27] MEDS: MELATONIN 5 MG TABLETS PO SCH (22:19)
[2020-08-27] MEDS: THIAMINE HCL 100 MG TABLET (FP) PO SCH (22:19)
[2020-08-27] MEDS: chlordiazePOXIDE HCL 25 MG CAPSULE PO SCH (22:20)
[2020-08-28] MEDS: chlordiazePOXIDE HCL 25 MG CAPSULE PO SCH ×4 (05:27→22:21)
[2020-08-28] MEDS ORDERED: NICOTINE 14 MG/24 HOURS TOPICAL PATCH TD SCH (10:00)
[2020-08-28] MEDS ORDERED: PRENATAL VITAMINS W/ FOLIC ACID TABLET (FP) PO SCH (10:00)
[2020-08-28 11:08] LABS: HEMATOCRIT 39.9 % (35.4-49); HEMOGLOBIN 12.7 GM/dL (11.7-16.9); MCH 24.9 pg (25.7-33.7); MCHC 31.8 g/dl (32.0-35.9); MEAN CELL VOLUME 78.3 fl (80-96); MEAN PLT VOLUME 9.5 fl (7.5-11.1); PLATELET COUNT 172 K/MM3 (134-434); RBC 5.09 M/mm3 (4.00-5.60); RDW 14.3 % (11.9-15.9)
[2020-08-28 11:13] LABS: POTASSIUM 3.7 mmol/L (3.5-5.1)
[2020-08-28 11:17] LABS: ALBUMIN 3.5 g/dl (3.4-5.0); BLOOD UREA NITROGEN 17.9 mg/dL (7-18); CALCIUM 8.5 mg/dL (8.5-10.1)
[2020-08-28 11:21] LABS: CREATININE 0.9 mg/dL (0.55-1.3)
[2020-08-28 11:22] LABS: BILIRUBIN,TOTAL 0.4 mg/dL (0.2-1); TOT PROT 7.4 g/dl (6.4-8.2)
[2020-08-28] MEDS ORDERED: ARIPiprazole 5 MG TABLET PO SCH (22:00)
[2020-08-28] MEDS: MELATONIN 5 MG TABLETS PO SCH (22:21)
[2020-08-28] MEDS: THIAMINE HCL 100 MG TABLET (FP) PO SCH (22:22)
[2020-08-29] MEDS ORDERED: chlordiazePOXIDE HCL 25 MG CAPSULE PO SCH (05:00)
[2020-08-29 07:00] VITALS: BP 137/83; PULSE 62; TEMP 97.6
[2020-08-29] MEDS ORDERED: SERTRALINE HCL 50 MG TABLET (FP) PO SCH (10:00)
[2020-08-30] MEDS ORDERED: chlordiazePOXIDE HCL 10 MG CAPSULE PO PRN
[2020-08-30] MEDS ORDERED: chlordiazePOXIDE HCL 10 MG CAPSULE PO SCH (05:00)
[2020-08-31] MEDS ORDERED: chlordiazePOXIDE HCL 10 MG CAPSULE PO SCH (05:00)
[2020-09-01] MEDS ORDERED: chlordiazePOXIDE HCL 10 MG CAPSULE PO ONE (05:00)
== END 2020-08-29 09:07 | disposition left against medical advice (07) | DRG 770 ==
LOC: YASAS 15:09 → Y3N 17:48
PROVIDERS: ADMIT Allergy & Immunology; ATTEND Allergy & Immunology
PROC: HZ2ZZZZ Detoxification Services for Substance Abuse Treatment (ICD-10-PCS; principal; 2020-08-27)
DX: F10.230 Alcohol dependence with withdrawal, uncomplicated (principal); F14.20 Cocaine dependence, uncomplicated; F17.210 Nicotine dependence, cigarettes, uncomplicated; F10.282 Alcohol dependence with alcohol-induced sleep disorder; F10.24 Alcohol dependence with alcohol-induced mood disorder; F32.9 Major depressive disorder, single episode, unspecified; U07.1 COVID-19; E11.9 Type 2 diabetes mellitus without complications; I10 Essential (primary) hypertension; M16.12 Unilateral primary osteoarthritis, left hip; B18.2 Chronic viral hepatitis C; K00.0 Anodontia; H26.9 Unspecified cataract; R25.1 Tremor, unspecified; Z87.11 Personal history of peptic ulcer disease; Z56.0 Unemployment, unspecified; Z59.0 Homelessness; Z98.890 Other specified postprocedural states; Z88.8 Allergy status to other drugs, medicaments and biological substances
CPT/HCPCS: 36415; 80053; 82962; 85027; 86780; 93005; 93010; C9803; U0003

== ENCOUNTER 2021-03-08 13:13 | Inpatient (IN) | payer OTHER ==
[2021-03-08 16:04] VITALS: BMI 22.1
[2021-03-08] MEDS ORDERED: LOPERAMIDE HCL 2 MG CAPSULE PO PRN (21:35)
[2021-03-08] MEDS ORDERED: MAGNESIUM HYDROX 2400MG/30ML ORAL SUSPENSION 30 ML CUP PO PRN (21:35)
[2021-03-08] MEDS ORDERED: ACETAMINOPHEN 325 MG TABLET (FP) PO PRN (21:35)
[2021-03-08] MEDS ORDERED: P-EPHED 60MG/TRIPROLIDI 2.5MG TABLET PO PRN (21:35)
[2021-03-08] MEDS ORDERED: MAGNESIUM CITRATE 300 ML BOTTLE PO PRN (21:35)
[2021-03-08] MEDS ORDERED: guaiFENesin 200 MG/10 ML 10 ML UNIT-DOSE CUPS PO PRN (21:35)
[2021-03-08] MEDS ORDERED: MAG HYDROX/AL HYDROX/SIMETH 30 ML UNIT-DOSE CUP PO PRN (21:35)
[2021-03-08] MEDS ORDERED: NICOTINE POLACRILEX 2 MG GUM BC PRN (21:35)
[2021-03-08] MEDS ORDERED: TUBERCULIN PPD 5 TU/0.1ML VIAL ID ONE (23:35)
[2021-03-08] MEDS: MELATONIN 5 MG TABLETS PO SCH (23:39)
[2021-03-08] MEDS: THIAMINE HCL 100 MG TABLET (FP) PO SCH (23:39)
[2021-03-08] MEDS: hydrOXYzine PAMOATE 25 MG CAPSULE (FP) PO PRN (23:39)
[2021-03-09] MEDS: NICOTINE 14 MG/24 HOURS TOPICAL PATCH TD SCH (09:41)
[2021-03-09] MEDS: PRENATAL VITAMINS W/ FOLIC ACID TABLET (FP) PO SCH (09:41)
[2021-03-09] MEDS: amLODIPine BESYLATE 5 MG TABLET (FP) PO SCH (09:41)
[2021-03-09 13:29] LABS: HEMATOCRIT 39.6 % (35.4-49); HEMOGLOBIN 12.4 GM/dL (11.7-16.9); MCH 24.4 pg (25.7-33.7); MCHC 31.2 g/dl (32.0-35.9); MEAN CELL VOLUME 78.3 fl (80-96); MEAN PLT VOLUME 9.1 fl (7.5-11.1); PLATELET COUNT 181 10^3/uL (134-434); RBC 5.06 M/mm3 (4.00-5.60); RDW 15.2 % (11.9-15.9); WHITE BLOOD COUNT 5.2 K/mm3 (4.0-10.0)
[2021-03-09 13:36] LABS: BLOOD UREA NITROGEN 24.8 mg/dL (7-18)
[2021-03-09 13:38] LABS: CALCIUM 8.6 mg/dL (8.5-10.1)
[2021-03-09 13:39] LABS: ALBUMIN 3.3 g/dl (3.4-5.0)
[2021-03-09 13:43] LABS: BILIRUBIN,TOTAL 0.3 mg/dL (0.2-1)
[2021-03-09 13:54] LABS: URINE APPEARANCE Clear; URINE BILIRUBIN Negative (NEGATIVE); URINE COLOR Yellow; URINE GLUCOSE (UA) Negative (NEGATIVE); URINE KETONE Negative (NEGATIVE); URINE LEUK ESTERASE Negative (NEGATIVE); URINE NITRITE Negative (NEGATIVE); URINE PROTEIN Negative (NEGATIVE); URINE UROBILINOGEN 0.2 mg/dL (0.2-1.0)
[2021-03-09 14:31] LABS: HIV INTERPRETATION NEGATIVE (NEGATIVE)
[2021-03-09] MEDS: hydrOXYzine PAMOATE 25 MG CAPSULE (FP) PO PRN (21:09)
[2021-03-09] MEDS: MELATONIN 5 MG TABLETS PO SCH (21:09)
[2021-03-09] MEDS: THIAMINE HCL 100 MG TABLET (FP) PO SCH (21:09)
[2021-03-10] MEDS ORDERED: PT OWN MED DRAWER 7, Y5N ONE (08:15)
[2021-03-10] MEDS: ARIPiprazole 15 MG TABLET PO SCH (09:47)
[2021-03-10] MEDS: NICOTINE 14 MG/24 HOURS TOPICAL PATCH TD SCH (09:47)
[2021-03-10] MEDS: amLODIPine BESYLATE 5 MG TABLET (FP) PO SCH (09:48)
[2021-03-10] MEDS: PRENATAL VITAMINS W/ FOLIC ACID TABLET (FP) PO SCH (09:48)
[2021-03-10] MEDS: SERTRALINE HCL 50 MG TABLET (FP) PO SCH (09:48)
[2021-03-10] MEDS ORDERED: ARIPiprazole 10 MG TABLET PO SCH (10:00)
[2021-03-10] MEDS: hydrOXYzine PAMOATE 25 MG CAPSULE (FP) PO PRN (21:18)
[2021-03-10] MEDS: MELATONIN 5 MG TABLETS PO SCH (21:19)
[2021-03-10] MEDS: THIAMINE HCL 100 MG TABLET (FP) PO SCH (21:19)
[2021-03-11] MEDS ORDERED: PT OWN MED DRAWER 7, Y5N ONE (08:41)
[2021-03-11] MEDS: amLODIPine BESYLATE 5 MG TABLET (FP) PO SCH (09:30)
[2021-03-11] MEDS: SERTRALINE HCL 50 MG TABLET (FP) PO SCH (09:30)
[2021-03-11] MEDS: PRENATAL VITAMINS W/ FOLIC ACID TABLET (FP) PO SCH (09:31)
[2021-03-11] MEDS: ARIPiprazole 15 MG TABLET PO SCH (09:31)
[2021-03-11] MEDS: NICOTINE 14 MG/24 HOURS TOPICAL PATCH TD SCH (09:31)
[2021-03-11] MEDS: IBUPROFEN 400 MG TABLET (FP) PO PRN (16:48)
[2021-03-11] MEDS: THIAMINE HCL 100 MG TABLET (FP) PO SCH (21:07)
[2021-03-11] MEDS: hydrOXYzine PAMOATE 25 MG CAPSULE (FP) PO PRN (21:07)
[2021-03-11] MEDS: MELATONIN 5 MG TABLETS PO SCH (21:07)
[2021-03-12] MEDS ORDERED: PT OWN MED DRAWER 7, Y5N ONE (08:54)
[2021-03-12] MEDS: ARIPiprazole 15 MG TABLET PO SCH (09:32)
[2021-03-12] MEDS: PRENATAL VITAMINS W/ FOLIC ACID TABLET (FP) PO SCH (09:32)
[2021-03-12] MEDS: SERTRALINE HCL 50 MG TABLET (FP) PO SCH (09:32)
[2021-03-12] MEDS: amLODIPine BESYLATE 5 MG TABLET (FP) PO SCH (09:32)
[2021-03-12] MEDS: NICOTINE 14 MG/24 HOURS TOPICAL PATCH TD SCH (09:33)
[2021-03-12] MEDS: THIAMINE HCL 100 MG TABLET (FP) PO SCH (21:35)
[2021-03-12] MEDS: MELATONIN 5 MG TABLETS PO SCH (21:35)
[2021-03-12] MEDS: hydrOXYzine PAMOATE 25 MG CAPSULE (FP) PO PRN (21:35)
[2021-03-13] MEDS ORDERED: PT OWN MED DRAWER 7, Y5N ONE (08:32)
[2021-03-13] MEDS: ARIPiprazole 15 MG TABLET PO SCH (09:50)
[2021-03-13] MEDS: PRENATAL VITAMINS W/ FOLIC ACID TABLET (FP) PO SCH (09:50)
[2021-03-13] MEDS: NICOTINE 14 MG/24 HOURS TOPICAL PATCH TD SCH (09:50)
[2021-03-13] MEDS: amLODIPine BESYLATE 5 MG TABLET (FP) PO SCH (09:50)
[2021-03-13] MEDS: SERTRALINE HCL 50 MG TABLET (FP) PO SCH (09:50)
[2021-03-13] MEDS: MELATONIN 5 MG TABLETS PO SCH (21:15)
[2021-03-13] MEDS: THIAMINE HCL 100 MG TABLET (FP) PO SCH (21:16)
[2021-03-13] MEDS: hydrOXYzine PAMOATE 25 MG CAPSULE (FP) PO PRN (21:16)
[2021-03-14] MEDS ORDERED: PT OWN MED DRAWER 7, Y5N ONE (03:36)
[2021-03-14] MEDS: amLODIPine BESYLATE 5 MG TABLET (FP) PO SCH (09:48)
[2021-03-14] MEDS: PRENATAL VITAMINS W/ FOLIC ACID TABLET (FP) PO SCH (09:48)
[2021-03-14] MEDS: SERTRALINE HCL 50 MG TABLET (FP) PO SCH (09:48)
[2021-03-14] MEDS: ARIPiprazole 15 MG TABLET PO SCH (09:48)
[2021-03-14] MEDS: NICOTINE 14 MG/24 HOURS TOPICAL PATCH TD SCH (09:48)
[2021-03-14] MEDS: THIAMINE HCL 100 MG TABLET (FP) PO SCH (22:13)
[2021-03-14] MEDS: MELATONIN 5 MG TABLETS PO SCH (22:13)
[2021-03-15] MEDS: ARIPiprazole 15 MG TABLET PO SCH (09:42)
[2021-03-15] MEDS: NICOTINE 14 MG/24 HOURS TOPICAL PATCH TD SCH (09:42)
[2021-03-15] MEDS: PRENATAL VITAMINS W/ FOLIC ACID TABLET (FP) PO SCH (09:43)
[2021-03-15] MEDS: amLODIPine BESYLATE 5 MG TABLET (FP) PO SCH (09:43)
[2021-03-15] MEDS: SERTRALINE HCL 50 MG TABLET (FP) PO SCH (09:43)
[2021-03-15] MEDS: THIAMINE HCL 100 MG TABLET (FP) PO SCH (22:37)
[2021-03-15] MEDS: MELATONIN 5 MG TABLETS PO SCH (22:37)
[2021-03-16] MEDS: NICOTINE 14 MG/24 HOURS TOPICAL PATCH TD SCH (09:48)
[2021-03-16] MEDS: amLODIPine BESYLATE 5 MG TABLET (FP) PO SCH (09:48)
[2021-03-16] MEDS: ARIPiprazole 15 MG TABLET PO SCH (09:48)
[2021-03-16] MEDS: PRENATAL VITAMINS W/ FOLIC ACID TABLET (FP) PO SCH (09:49)
[2021-03-16] MEDS: SERTRALINE HCL 50 MG TABLET (FP) PO SCH (09:49)
[2021-03-16] MEDS: IBUPROFEN 400 MG TABLET (FP) PO PRN (13:39)
[2021-03-16] MEDS: MELATONIN 5 MG TABLETS PO SCH (21:32)
[2021-03-16] MEDS: THIAMINE HCL 100 MG TABLET (FP) PO SCH (21:32)
[2021-03-17] MEDS: SERTRALINE HCL 50 MG TABLET (FP) PO SCH (09:56)
[2021-03-17] MEDS: amLODIPine BESYLATE 5 MG TABLET (FP) PO SCH (09:56)
[2021-03-17] MEDS: ARIPiprazole 15 MG TABLET PO SCH (09:56)
[2021-03-17] MEDS: NICOTINE 14 MG/24 HOURS TOPICAL PATCH TD SCH (09:56)
[2021-03-17] MEDS: PRENATAL VITAMINS W/ FOLIC ACID TABLET (FP) PO SCH (09:56)
[2021-03-17] MEDS: hydrOXYzine PAMOATE 25 MG CAPSULE (FP) PO PRN (21:31)
[2021-03-17] MEDS: MELATONIN 5 MG TABLETS PO SCH (21:32)
[2021-03-17] MEDS: THIAMINE HCL 100 MG TABLET (FP) PO SCH (21:32)
[2021-03-18] MEDS: NICOTINE 14 MG/24 HOURS TOPICAL PATCH TD SCH (09:36)
[2021-03-18] MEDS: SERTRALINE HCL 50 MG TABLET (FP) PO SCH (09:36)
[2021-03-18] MEDS: ARIPiprazole 15 MG TABLET PO SCH (09:36)
[2021-03-18] MEDS: amLODIPine BESYLATE 5 MG TABLET (FP) PO SCH (09:36)
[2021-03-18] MEDS: PRENATAL VITAMINS W/ FOLIC ACID TABLET (FP) PO SCH (09:37)
[2021-03-18] MEDS: MELATONIN 5 MG TABLETS PO SCH (22:12)
[2021-03-18] MEDS: THIAMINE HCL 100 MG TABLET (FP) PO SCH (22:12)
[2021-03-19] MEDS ORDERED: PT OWN MED DRAWER 7, Y5N ONE (08:09)
[2021-03-19] MEDS: PRENATAL VITAMINS W/ FOLIC ACID TABLET (FP) PO SCH (10:03)
[2021-03-19] MEDS: ARIPiprazole 15 MG TABLET PO SCH (10:03)
[2021-03-19] MEDS: amLODIPine BESYLATE 5 MG TABLET (FP) PO SCH (10:03)
[2021-03-19] MEDS: NICOTINE 14 MG/24 HOURS TOPICAL PATCH TD SCH (10:03)
[2021-03-19] MEDS: SERTRALINE HCL 50 MG TABLET (FP) PO SCH (10:03)
[2021-03-19] MEDS: MELATONIN 5 MG TABLETS PO SCH (21:41)
[2021-03-19] MEDS: THIAMINE HCL 100 MG TABLET (FP) PO SCH (21:41)
[2021-03-20] MEDS ORDERED: PT OWN MED DRAWER 7, Y5N ONE ×2 (08:59→12:05)
[2021-03-20] MEDS: PRENATAL VITAMINS W/ FOLIC ACID TABLET (FP) PO SCH (09:41)
[2021-03-20] MEDS: NICOTINE 14 MG/24 HOURS TOPICAL PATCH TD SCH (09:41)
[2021-03-20] MEDS: ARIPiprazole 15 MG TABLET PO SCH (09:42)
[2021-03-20] MEDS: SERTRALINE HCL 50 MG TABLET (FP) PO SCH (09:42)
[2021-03-20] MEDS: amLODIPine BESYLATE 5 MG TABLET (FP) PO SCH (09:42)
[2021-03-20] MEDS: IBUPROFEN 400 MG TABLET (FP) PO PRN (13:59)
[2021-03-20] MEDS: MELATONIN 5 MG TABLETS PO SCH (21:26)
[2021-03-20] MEDS: THIAMINE HCL 100 MG TABLET (FP) PO SCH (21:26)
[2021-03-20] MEDS: hydrOXYzine PAMOATE 25 MG CAPSULE (FP) PO PRN (21:27)
[2021-03-21] MEDS: amLODIPine BESYLATE 5 MG TABLET (FP) PO SCH (09:52)
[2021-03-21] MEDS: SERTRALINE HCL 50 MG TABLET (FP) PO SCH (09:52)
[2021-03-21] MEDS: PRENATAL VITAMINS W/ FOLIC ACID TABLET (FP) PO SCH (09:52)
[2021-03-21] MEDS: ARIPiprazole 15 MG TABLET PO SCH (09:52)
[2021-03-21] MEDS: NICOTINE 14 MG/24 HOURS TOPICAL PATCH TD SCH (09:53)
[2021-03-21] MEDS: metFORMIN HCL 500 MG TABLET (FP) PO SCH (16:37)
[2021-03-21] MEDS ORDERED: PT OWN MED DRAWER 7, Y5N ONE (18:44)
[2021-03-21] MEDS: THIAMINE HCL 100 MG TABLET (FP) PO SCH (21:05)
[2021-03-21] MEDS: MELATONIN 5 MG TABLETS PO SCH (21:05)
[2021-03-22] MEDS: metFORMIN HCL 500 MG TABLET (FP) PO SCH (06:15)
[2021-03-22 06:40] VITALS: BP 130/86; PULSE 75; TEMP 96.9
== END 2021-03-22 08:32 | disposition home or self-care (01) | DRG 772 ==
LOC: YASAS 13:13 → Y3E 22:17
PROVIDERS: ADMIT Allergy & Immunology; ATTEND Allergy & Immunology
PROC: HZ42ZZZ Group Counseling for Substance Abuse Treatment, Cognitive-Behavioral (ICD-10-PCS; principal; 2021-03-08)
DX: F10.20 Alcohol dependence, uncomplicated (principal); F14.20 Cocaine dependence, uncomplicated; F17.210 Nicotine dependence, cigarettes, uncomplicated; F19.280 Other psychoactive substance dependence with psychoactive substance-induced anxiety disorder; F19.24 Other psychoactive substance dependence with psychoactive substance-induced mood disorder; F20.1 Disorganized schizophrenia; F20.0 Paranoid schizophrenia; F32.9 Major depressive disorder, single episode, unspecified; H26.9 Unspecified cataract; M25.569 Pain in unspecified knee; B18.2 Chronic viral hepatitis C; K00.0 Anodontia; Z99.89 Dependence on other enabling machines and devices; Z88.8 Allergy status to other drugs, medicaments and biological substances
CPT/HCPCS: 36415; 80053; 81003; 82962; 85027; 86780; 87389; 93005; 93010; C9803; U0003; U0005

== ENCOUNTER 2021-06-27 13:39 | Inpatient (IN) | payer OTHER ==
[2021-06-27] MEDS ORDERED: NICOTINE 10 MG CARTRIDGE (INHALER) IH PRN (14:03)
[2021-06-27] MEDS ORDERED: diazePAM 5 MG TABLET PO PRN (14:03)
[2021-06-27] MEDS ORDERED: MAG HYDROX/AL HYDROX/SIMETH 30 ML UNIT-DOSE CUP PO PRN (14:03)
[2021-06-27] MEDS ORDERED: MENTHOL/PHENOL 1 EACH UD MM PRN (14:03)
[2021-06-27] MEDS ORDERED: MAGNESIUM CITRATE 300 ML BOTTLE PO PRN (14:03)
[2021-06-27] MEDS ORDERED: MAGNESIUM HYDROX 2400MG/30ML ORAL SUSPENSION 30 ML CUP PO PRN (14:03)
[2021-06-27] MEDS ORDERED: ONDANSETRON *ODT* 4 MG TABLET SL PRN (14:03)
[2021-06-27] MEDS ORDERED: ACETAMINOPHEN 325 MG TABLET (FP) PO PRN ×2 (14:03)
[2021-06-27] MEDS ORDERED: BISMUTH SUBSALICYLATE 262 MG/15 ML BTL PO PRN (14:03)
[2021-06-27 14:08] VITALS: BMI 22.8
[2021-06-27] MEDS: amLODIPine BESYLATE 5 MG TABLET (FP) PO SCH (18:26)
[2021-06-27] MEDS: diazePAM 5 MG TABLET PO SCH ×2 (18:26→22:14)
[2021-06-27] MEDS: PRENATAL VITAMINS W/ FOLIC ACID TABLET (FP) PO SCH (18:27)
[2021-06-27] MEDS: hydrOXYzine PAMOATE 25 MG CAPSULE (FP) PO SCH ×2 (18:28→22:59)
[2021-06-27] MEDS: THIAMINE HCL 100 MG TABLET (FP) PO SCH (22:14)
[2021-06-27] MEDS: MELATONIN 5 MG TABLETS PO SCH (22:15)
[2021-06-28] MEDS: diazePAM 5 MG TABLET PO SCH ×4 (05:20→22:18)
[2021-06-28] MEDS: hydrOXYzine PAMOATE 25 MG CAPSULE (FP) PO SCH ×5 (05:20→22:18)
[2021-06-28 10:18] LABS: HEMATOCRIT 38.7 % (35.4-49); HEMOGLOBIN 12.6 GM/dL (11.7-16.9); MCHC 32.5 g/dl (32.0-35.9); MEAN CELL VOLUME 76.8 fl (80-96); PLATELET COUNT 188 10^3/uL (134-434); RBC 5.04 M/mm3 (4.00-5.60); RDW 14.1 % (11.9-15.9); WHITE BLOOD COUNT 3.8 K/mm3 (4.0-10.0)
[2021-06-28] MEDS: PRENATAL VITAMINS W/ FOLIC ACID TABLET (FP) PO SCH (10:24)
[2021-06-28] MEDS: METHOCARBAMOL 500 MG TABLET PO PRN (10:24)
[2021-06-28] MEDS: amLODIPine BESYLATE 5 MG TABLET (FP) PO SCH (10:24)
[2021-06-28 10:25] LABS: CALCIUM 8.3 mg/dL (8.5-10.1)
[2021-06-28 10:26] LABS: ALBUMIN 2.8 g/dl (3.4-5.0); BLOOD UREA NITROGEN 20.5 mg/dL (7-18)
[2021-06-28 10:30] LABS: BILIRUBIN,TOTAL 0.4 mg/dL (0.2-1)
[2021-06-28 10:31] LABS: TOT PROT 6.7 g/dl (6.4-8.2)
[2021-06-28] MEDS: SERTRALINE HCL 50 MG TABLET (FP) PO SCH (10:56)
[2021-06-28] MEDS: ARIPiprazole 10 MG TABLET PO SCH (22:18)
[2021-06-28] MEDS: MELATONIN 5 MG TABLETS PO SCH (22:18)
[2021-06-28] MEDS: THIAMINE HCL 100 MG TABLET (FP) PO SCH (22:18)
[2021-06-29] MEDS: hydrOXYzine PAMOATE 25 MG CAPSULE (FP) PO SCH ×5 (05:10→22:19)
[2021-06-29] MEDS: diazePAM 5 MG TABLET PO SCH ×3 (05:11→22:18)
[2021-06-29] MEDS: amLODIPine BESYLATE 5 MG TABLET (FP) PO SCH (09:57)
[2021-06-29] MEDS: PRENATAL VITAMINS W/ FOLIC ACID TABLET (FP) PO SCH (09:57)
[2021-06-29] MEDS: SERTRALINE HCL 50 MG TABLET (FP) PO SCH (09:57)
[2021-06-29] MEDS: METHOCARBAMOL 500 MG TABLET PO PRN (09:58)
[2021-06-29] MEDS: IBUPROFEN 400 MG TABLET (FP) PO PRN (09:58)
[2021-06-29] MEDS: ARIPiprazole 10 MG TABLET PO SCH (22:19)
[2021-06-29] MEDS: THIAMINE HCL 100 MG TABLET (FP) PO SCH (22:19)
[2021-06-29] MEDS: MELATONIN 5 MG TABLETS PO SCH (22:19)
[2021-06-30] MEDS: diazePAM 5 MG TABLET PO SCH ×2 (05:33→18:23)
[2021-06-30] MEDS: hydrOXYzine PAMOATE 25 MG CAPSULE (FP) PO SCH ×5 (05:33→22:16)
[2021-06-30] MEDS: amLODIPine BESYLATE 5 MG TABLET (FP) PO SCH (10:30)
[2021-06-30] MEDS: PRENATAL VITAMINS W/ FOLIC ACID TABLET (FP) PO SCH (10:30)
[2021-06-30] MEDS: SERTRALINE HCL 50 MG TABLET (FP) PO SCH (10:30)
[2021-06-30] MEDS: METHOCARBAMOL 500 MG TABLET PO PRN ×2 (10:30→18:22)
[2021-06-30] MEDS: IBUPROFEN 400 MG TABLET (FP) PO PRN (10:31)
[2021-06-30] MEDS: THIAMINE HCL 100 MG TABLET (FP) PO SCH (22:16)
[2021-06-30] MEDS: ARIPiprazole 10 MG TABLET PO SCH (22:16)
[2021-06-30] MEDS: MELATONIN 5 MG TABLETS PO SCH (22:17)
[2021-07-01] MEDS: hydrOXYzine PAMOATE 25 MG CAPSULE (FP) PO SCH ×3 (05:34→14:08)
[2021-07-01] MEDS: METHOCARBAMOL 500 MG TABLET PO PRN (05:35)
[2021-07-01] MEDS ORDERED: diazePAM 5 MG TABLET PO ONE (06:00)
[2021-07-01] MEDS: SERTRALINE HCL 50 MG TABLET (FP) PO SCH (10:53)
[2021-07-01] MEDS: PRENATAL VITAMINS W/ FOLIC ACID TABLET (FP) PO SCH (10:53)
[2021-07-01] MEDS: amLODIPine BESYLATE 5 MG TABLET (FP) PO SCH (10:53)
[2021-07-01 13:57] VITALS: BP 124/78; PULSE 83; TEMP 98
== END 2021-07-01 14:23 | disposition other institution (70) | DRG 774 ==
LOC: YASAS 13:39 → Y6N 17:05 → UNDOADMIN 17:05
PROVIDERS: ADMIT Allergy & Immunology; ATTEND Allergy & Immunology
PROC: HZ2ZZZZ Detoxification Services for Substance Abuse Treatment (ICD-10-PCS; principal; 2021-06-27)
DX: F10.230 Alcohol dependence with withdrawal, uncomplicated (principal); F14.20 Cocaine dependence, uncomplicated; F17.220 Nicotine dependence, chewing tobacco, uncomplicated; F19.280 Other psychoactive substance dependence with psychoactive substance-induced anxiety disorder; F19.282 Other psychoactive substance dependence with psychoactive substance-induced sleep disorder; F32.A Depression, unspecified; I10 Essential (primary) hypertension; E11.9 Type 2 diabetes mellitus without complications; H20.9 Unspecified iridocyclitis; M25.562 Pain in left knee; G89.29 Other chronic pain; Z87.11 Personal history of peptic ulcer disease; Z86.19 Personal history of other infectious and parasitic diseases; Z99.89 Dependence on other enabling machines and devices; Z88.8 Allergy status to other drugs, medicaments and biological substances; Z59.01 Sheltered homelessness
CPT/HCPCS: 36415; 80053; 82962; 85027; 86780; C9803; U0003; U0005

== ENCOUNTER 2021-07-01 14:27 | Inpatient (IN) | payer OTHER ==
[2021-07-01] MEDS ORDERED: MAGNESIUM CITRATE 300 ML BOTTLE PO PRN (15:11)
[2021-07-01] MEDS ORDERED: IBUPROFEN 400 MG TABLET (FP) PO PRN (15:11)
[2021-07-01] MEDS ORDERED: guaiFENesin 200 MG/10 ML 10 ML UNIT-DOSE CUPS PO PRN (15:11)
[2021-07-01] MEDS ORDERED: ACETAMINOPHEN 325 MG TABLET (FP) PO PRN (15:11)
[2021-07-01] MEDS ORDERED: NICOTINE 10 MG CARTRIDGE (INHALER) IH PRN (15:11)
[2021-07-01] MEDS ORDERED: P-EPHED 60MG/TRIPROLIDI 2.5MG TABLET PO PRN (15:11)
[2021-07-01] MEDS ORDERED: LOPERAMIDE HCL 2 MG CAPSULE PO PRN (15:11)
[2021-07-01] MEDS ORDERED: MAG HYDROX/AL HYDROX/SIMETH 30 ML UNIT-DOSE CUP PO PRN (15:11)
[2021-07-01] MEDS ORDERED: MAGNESIUM HYDROX 2400MG/30ML ORAL SUSPENSION 30 ML CUP PO PRN (15:11)
[2021-07-01] MEDS ORDERED: MENTHOL/PHENOL 1 EACH UD MM PRN (15:11)
[2021-07-01] MEDS: THIAMINE HCL 100 MG TABLET (FP) PO SCH (21:17)
[2021-07-01] MEDS: MELATONIN 5 MG TABLETS PO SCH (21:17)
[2021-07-02] MEDS: NICOTINE 7 MG/24 HOURS TOPICAL PATCH TD SCH (09:54)
[2021-07-02] MEDS: amLODIPine BESYLATE 10 MG TABLET (FP) PO SCH (09:54)
[2021-07-02] MEDS: PRENATAL VITAMINS W/ FOLIC ACID TABLET (FP) PO SCH (09:54)
[2021-07-02] MEDS: hydrOXYzine PAMOATE 25 MG CAPSULE (FP) PO PRN (09:54)
[2021-07-02] MEDS: THIAMINE HCL 100 MG TABLET (FP) PO SCH (21:31)
[2021-07-02] MEDS: MELATONIN 5 MG TABLETS PO SCH (21:32)
[2021-07-03] MEDS: hydrOXYzine PAMOATE 25 MG CAPSULE (FP) PO PRN (10:05)
[2021-07-03] MEDS: PRENATAL VITAMINS W/ FOLIC ACID TABLET (FP) PO SCH (10:05)
[2021-07-03] MEDS: amLODIPine BESYLATE 10 MG TABLET (FP) PO SCH (10:05)
[2021-07-03] MEDS: NICOTINE 7 MG/24 HOURS TOPICAL PATCH TD SCH (10:05)
[2021-07-03] MEDS ORDERED: IBUPROFEN 600 MG TABLET (FP) PO PRN (13:05)
[2021-07-03] MEDS: METHYL SALICYLATE/MENTHOL OINT 30 GM TUBE TP SCH ×2 (13:56→21:16)
[2021-07-03] MEDS: metFORMIN HCL 500 MG TABLET (FP) PO SCH (16:37)
[2021-07-03] MEDS: THIAMINE HCL 100 MG TABLET (FP) PO SCH (21:16)
[2021-07-03] MEDS: MELATONIN 5 MG TABLETS PO SCH (21:17)
[2021-07-04] MEDS: metFORMIN HCL 500 MG TABLET (FP) PO SCH (06:38)
[2021-07-04 07:00] VITALS: TEMP 98.2
[2021-07-04] MEDS: hydrOXYzine PAMOATE 25 MG CAPSULE (FP) PO PRN (10:02)
[2021-07-04] MEDS: amLODIPine BESYLATE 10 MG TABLET (FP) PO SCH (10:02)
[2021-07-04] MEDS: PRENATAL VITAMINS W/ FOLIC ACID TABLET (FP) PO SCH (10:02)
[2021-07-04] MEDS: METHYL SALICYLATE/MENTHOL OINT 30 GM TUBE TP SCH (10:03)
[2021-07-04] MEDS: NICOTINE 7 MG/24 HOURS TOPICAL PATCH TD SCH (10:03)
[2021-07-04 10:25] VITALS: BP 158/92; PULSE 84
== END 2021-07-04 12:35 | disposition left against medical advice (07) | DRG 770 ==
LOC: YASAS 14:27 → Y3W 14:29
PROVIDERS: ADMIT Allergy & Immunology; ATTEND Allergy & Immunology
PROC: HZ2ZZZZ Detoxification Services for Substance Abuse Treatment (ICD-10-PCS; principal; 2021-07-01)
DX: F10.20 Alcohol dependence, uncomplicated (principal); F14.20 Cocaine dependence, uncomplicated; F17.210 Nicotine dependence, cigarettes, uncomplicated; I10 Essential (primary) hypertension; E11.9 Type 2 diabetes mellitus without complications; Z79.84 Long term (current) use of oral hypoglycemic drugs; Z99.89 Dependence on other enabling machines and devices; Z88.8 Allergy status to other drugs, medicaments and biological substances
CPT/HCPCS: 82962

== ENCOUNTER 2021-07-13 12:32 | Inpatient (IN) | payer OTHER ==
[2021-07-13] MEDS ORDERED: MAGNESIUM CITRATE 300 ML BOTTLE PO PRN (13:32)
[2021-07-13] MEDS ORDERED: ACETAMINOPHEN 325 MG TABLET (FP) PO PRN (13:32)
[2021-07-13] MEDS ORDERED: MAGNESIUM HYDROX 2400MG/30ML ORAL SUSPENSION 30 ML CUP PO PRN (13:32)
[2021-07-13] MEDS ORDERED: MENTHOL/PHENOL 1 EACH UD MM PRN (13:32)
[2021-07-13] MEDS ORDERED: BISMUTH SUBSALICYLATE 262 MG/15 ML BTL PO PRN (13:32)
[2021-07-13] MEDS ORDERED: ONDANSETRON *ODT* 4 MG TABLET SL PRN (13:32)
[2021-07-13] MEDS ORDERED: NICOTINE 10 MG CARTRIDGE (INHALER) IH PRN (13:32)
[2021-07-13] MEDS ORDERED: MAG HYDROX/AL HYDROX/SIMETH 30 ML UNIT-DOSE CUP PO PRN (13:32)
[2021-07-13 13:44] VITALS: BMI 22.8
[2021-07-13] MEDS: hydrOXYzine PAMOATE 25 MG CAPSULE (FP) PO SCH ×3 (15:06→22:26)
[2021-07-13] MEDS: NICOTINE 21 MG/24 HOURS TOPICAL PATCH TD SCH (15:40)
[2021-07-13] MEDS: metFORMIN HCL 500 MG TABLET (FP) PO SCH (17:06)
[2021-07-13] MEDS: MELATONIN 5 MG TABLETS PO SCH (22:26)
[2021-07-13] MEDS: THIAMINE HCL 100 MG TABLET (FP) PO SCH (22:27)
[2021-07-14] MEDS: ACETAMINOPHEN 325 MG TABLET (FP) PO PRN (05:07)
[2021-07-14] MEDS: hydrOXYzine PAMOATE 25 MG CAPSULE (FP) PO SCH ×5 (05:07→22:51)
[2021-07-14] MEDS: metFORMIN HCL 500 MG TABLET (FP) PO SCH ×2 (07:24→16:43)
[2021-07-14] MEDS ORDERED: diazePAM 5 MG TABLET PO PRN (09:41)
[2021-07-14] MEDS: amLODIPine BESYLATE 10 MG TABLET (FP) PO SCH (11:09)
[2021-07-14] MEDS: PRENATAL VITAMINS W/ FOLIC ACID TABLET (FP) PO SCH (11:09)
[2021-07-14] MEDS: IBUPROFEN 400 MG TABLET (FP) PO PRN ×2 (11:11→22:53)
[2021-07-14] MEDS: NICOTINE 21 MG/24 HOURS TOPICAL PATCH TD SCH ×2 (11:13→14:07)
[2021-07-14] MEDS: diazePAM 5 MG TABLET PO SCH ×3 (11:14→22:52)
[2021-07-14 11:38] LABS: HEMATOCRIT 39.6 % (35.4-49); HEMOGLOBIN 12.7 GM/dL (11.7-16.9); MCH 24.9 pg (25.7-33.7); MEAN CELL VOLUME 77.8 fl (80-96); MEAN PLT VOLUME 8.8 fl (7.5-11.1); PLATELET COUNT 232 10^3/uL (134-434); RBC 5.09 M/mm3 (4.00-5.60); RDW 13.9 % (11.9-15.9); WHITE BLOOD COUNT 3.9 K/mm3 (4.0-10.0)
[2021-07-14 11:54] LABS: CALCIUM 8.8 mg/dL (8.5-10.1)
[2021-07-14 11:55] LABS: BILIRUBIN,TOTAL 0.2 mg/dL (0.2-1)
[2021-07-14 11:56] LABS: TOT PROT 6.7 g/dl (6.4-8.2)
[2021-07-14] MEDS: SERTRALINE HCL 50 MG TABLET (FP) PO SCH (14:11)
[2021-07-14] MEDS: ARIPiprazole 10 MG TABLET PO SCH (22:51)
[2021-07-14] MEDS: THIAMINE HCL 100 MG TABLET (FP) PO SCH (22:51)
[2021-07-14] MEDS: MELATONIN 5 MG TABLETS PO SCH (22:51)
[2021-07-15] MEDS: hydrOXYzine PAMOATE 25 MG CAPSULE (FP) PO SCH ×5 (05:20→23:05)
[2021-07-15] MEDS: diazePAM 5 MG TABLET PO SCH ×4 (05:21→22:36)
[2021-07-15] MEDS: ACETAMINOPHEN 325 MG TABLET (FP) PO PRN (05:23)
[2021-07-15] MEDS: metFORMIN HCL 500 MG TABLET (FP) PO SCH ×2 (06:59→17:57)
[2021-07-15] MEDS: amLODIPine BESYLATE 10 MG TABLET (FP) PO SCH (10:34)
[2021-07-15] MEDS: SERTRALINE HCL 50 MG TABLET (FP) PO SCH (10:35)
[2021-07-15] MEDS: NICOTINE 21 MG/24 HOURS TOPICAL PATCH TD SCH (10:35)
[2021-07-15] MEDS: PRENATAL VITAMINS W/ FOLIC ACID TABLET (FP) PO SCH (10:35)
[2021-07-15] MEDS: METHOCARBAMOL 500 MG TABLET PO PRN ×2 (10:35→22:38)
[2021-07-15] MEDS ORDERED: ARIPiprazole 5 MG TABLET ONE (21:59)
[2021-07-15] MEDS: THIAMINE HCL 100 MG TABLET (FP) PO SCH (22:35)
[2021-07-15] MEDS: ARIPiprazole 10 MG TABLET PO SCH (22:35)
[2021-07-15] MEDS: MELATONIN 5 MG TABLETS PO SCH (23:05)
[2021-07-16] MEDS: hydrOXYzine PAMOATE 25 MG CAPSULE (FP) PO SCH ×5 (05:49→23:16)
[2021-07-16] MEDS: diazePAM 5 MG TABLET PO SCH ×3 (05:49→22:31)
[2021-07-16] MEDS: metFORMIN HCL 500 MG TABLET (FP) PO SCH ×2 (07:36→17:44)
[2021-07-16] MEDS: amLODIPine BESYLATE 10 MG TABLET (FP) PO SCH (10:26)
[2021-07-16] MEDS: SERTRALINE HCL 50 MG TABLET (FP) PO SCH (10:26)
[2021-07-16] MEDS: NICOTINE 21 MG/24 HOURS TOPICAL PATCH TD SCH (10:27)
[2021-07-16] MEDS: PRENATAL VITAMINS W/ FOLIC ACID TABLET (FP) PO SCH (10:27)
[2021-07-16] MEDS: METHOCARBAMOL 500 MG TABLET PO PRN ×2 (10:27→17:44)
[2021-07-16] MEDS: THIAMINE HCL 100 MG TABLET (FP) PO SCH (22:31)
[2021-07-16] MEDS: MELATONIN 5 MG TABLETS PO SCH (23:15)
[2021-07-16] MEDS: ARIPiprazole 10 MG TABLET PO SCH (23:15)
[2021-07-17] MEDS: hydrOXYzine PAMOATE 25 MG CAPSULE (FP) PO SCH ×5 (05:48→22:21)
[2021-07-17] MEDS: METHOCARBAMOL 500 MG TABLET PO PRN ×2 (05:49→22:23)
[2021-07-17] MEDS: diazePAM 5 MG TABLET PO SCH ×2 (05:49→18:04)
[2021-07-17] MEDS: metFORMIN HCL 500 MG TABLET (FP) PO SCH ×2 (08:00→16:48)
[2021-07-17] MEDS: amLODIPine BESYLATE 10 MG TABLET (FP) PO SCH (10:27)
[2021-07-17] MEDS: SERTRALINE HCL 50 MG TABLET (FP) PO SCH (10:27)
[2021-07-17] MEDS: PRENATAL VITAMINS W/ FOLIC ACID TABLET (FP) PO SCH (10:27)
[2021-07-17] MEDS: NICOTINE 21 MG/24 HOURS TOPICAL PATCH TD SCH (10:28)
[2021-07-17] MEDS: IBUPROFEN 400 MG TABLET (FP) PO PRN (18:06)
[2021-07-17] MEDS: MELATONIN 5 MG TABLETS PO SCH (22:21)
[2021-07-17] MEDS: THIAMINE HCL 100 MG TABLET (FP) PO SCH (22:21)
[2021-07-17] MEDS: ARIPiprazole 10 MG TABLET PO SCH (22:21)
[2021-07-18] MEDS: hydrOXYzine PAMOATE 25 MG CAPSULE (FP) PO SCH ×2 (05:51→10:14)
[2021-07-18] MEDS ORDERED: diazePAM 5 MG TABLET PO ONE (06:00)
[2021-07-18] MEDS: metFORMIN HCL 500 MG TABLET (FP) PO SCH (06:07)
[2021-07-18 09:49] VITALS: BP 115/68; PULSE 80; TEMP 97.5
[2021-07-18] MEDS: NICOTINE 21 MG/24 HOURS TOPICAL PATCH TD SCH (10:14)
[2021-07-18] MEDS: PRENATAL VITAMINS W/ FOLIC ACID TABLET (FP) PO SCH (10:14)
[2021-07-18] MEDS: amLODIPine BESYLATE 10 MG TABLET (FP) PO SCH (10:14)
[2021-07-18] MEDS: SERTRALINE HCL 50 MG TABLET (FP) PO SCH (10:14)
[2021-07-18] MEDS: METHOCARBAMOL 500 MG TABLET PO PRN (10:15)
== END 2021-07-18 12:39 | disposition home or self-care (01) | DRG 774 ==
LOC: YASAS 12:32 → Y6N 14:13
PROVIDERS: ADMIT Allergy & Immunology; ATTEND Allergy & Immunology
PROC: HZ2ZZZZ Detoxification Services for Substance Abuse Treatment (ICD-10-PCS; principal; 2021-07-13)
DX: F10.230 Alcohol dependence with withdrawal, uncomplicated (principal); F14.20 Cocaine dependence, uncomplicated; F17.213 Nicotine dependence, cigarettes, with withdrawal; F20.1 Disorganized schizophrenia; F19.282 Other psychoactive substance dependence with psychoactive substance-induced sleep disorder; F19.24 Other psychoactive substance dependence with psychoactive substance-induced mood disorder; I10 Essential (primary) hypertension; E11.9 Type 2 diabetes mellitus without complications; Z79.84 Long term (current) use of oral hypoglycemic drugs; Z86.19 Personal history of other infectious and parasitic diseases; Z87.11 Personal history of peptic ulcer disease; Z99.89 Dependence on other enabling machines and devices; Z88.8 Allergy status to other drugs, medicaments and biological substances; Z56.0 Unemployment, unspecified; Z59.01 Sheltered homelessness
CPT/HCPCS: 36415; 73030-TC-RT-FY; 80053; 82962; 85027; 86780; C9803; U0003; U0005

== ENCOUNTER 2021-08-28 11:43 | Inpatient (IN) | payer OTHER ==
[2021-08-28 12:48] VITALS: BMI 22.3
[2021-08-28] MEDS ORDERED: BISMUTH SUBSALICYLATE 262 MG/15 ML BTL PO PRN (13:59)
[2021-08-28] MEDS ORDERED: METHOCARBAMOL 500 MG TABLET PO PRN (13:59)
[2021-08-28] MEDS ORDERED: MAGNESIUM CITRATE 300 ML BOTTLE PO PRN (13:59)
[2021-08-28] MEDS ORDERED: IBUPROFEN 400 MG TABLET (FP) PO PRN (13:59)
[2021-08-28] MEDS ORDERED: ACETAMINOPHEN 325 MG TABLET (FP) PO PRN ×2 (13:59)
[2021-08-28] MEDS ORDERED: NICOTINE 10 MG CARTRIDGE (INHALER) IH PRN (13:59)
[2021-08-28] MEDS ORDERED: MAGNESIUM HYDROX 2400MG/30ML ORAL SUSPENSION 30 ML CUP PO PRN (13:59)
[2021-08-28] MEDS ORDERED: chlordiazePOXIDE HCL 25 MG CAPSULE PO PRN (13:59)
[2021-08-28] MEDS ORDERED: ONDANSETRON *ODT* 4 MG TABLET SL PRN (13:59)
[2021-08-28] MEDS ORDERED: MAG HYDROX/AL HYDROX/SIMETH 30 ML UNIT-DOSE CUP PO PRN (13:59)
[2021-08-28] MEDS: hydrOXYzine PAMOATE 25 MG CAPSULE (FP) PO SCH ×3 (14:37→23:21)
[2021-08-28] MEDS: metFORMIN HCL 500 MG TABLET (FP) PO SCH (17:29)
[2021-08-28] MEDS: chlordiazePOXIDE HCL 25 MG CAPSULE PO SCH ×2 (17:29→23:17)
[2021-08-28 17:48] LABS: HIV INTERPRETATION NEGATIVE (NEGATIVE)
[2021-08-28] MEDS: THIAMINE HCL 100 MG TABLET (FP) PO SCH (23:17)
[2021-08-28] MEDS: MENTHOL/PHENOL 1 EACH UD MM PRN (23:19)
[2021-08-28] MEDS: MELATONIN 5 MG TABLETS PO SCH (23:20)
[2021-08-29] MEDS: hydrOXYzine PAMOATE 25 MG CAPSULE (FP) PO SCH ×5 (05:24→22:22)
[2021-08-29] MEDS: chlordiazePOXIDE HCL 25 MG CAPSULE PO SCH ×4 (05:25→22:22)
[2021-08-29] MEDS: MENTHOL/PHENOL 1 EACH UD MM PRN ×2 (05:28→22:24)
[2021-08-29] MEDS: metFORMIN HCL 500 MG TABLET (FP) PO SCH ×2 (07:57→17:57)
[2021-08-29] MEDS: SERTRALINE HCL 50 MG TABLET (FP) PO SCH (10:15)
[2021-08-29] MEDS: PRENATAL VITAMINS W/ FOLIC ACID TABLET (FP) PO SCH (10:15)
[2021-08-29] MEDS: amLODIPine BESYLATE 10 MG TABLET (FP) PO SCH (10:16)
[2021-08-29] MEDS: guaiFENesin 600 MG TABLET.ER (FP) PO SCH ×2 (11:29→22:21)
[2021-08-29 12:24] LABS: HEMATOCRIT 41.1 % (35.4-49); HEMOGLOBIN 12.5 GM/dL (11.7-16.9); MCH 23.8 pg (25.7-33.7); MCHC 30.4 g/dl (32.0-35.9); MEAN CELL VOLUME 78.3 fl (80-96); MEAN PLT VOLUME 9.6 fl (7.5-11.1); PLATELET COUNT 190 10^3/uL (134-434); RBC 5.25 M/mm3 (4.00-5.60); RDW 14.3 % (11.9-15.9); WHITE BLOOD COUNT 6.6 K/mm3 (4.0-10.0)
[2021-08-29 12:27] LABS: ALBUMIN 3.4 g/dl (3.4-5.0); BLOOD UREA NITROGEN 17.5 mg/dL (7-18); CALCIUM 8.9 mg/dL (8.5-10.1)
[2021-08-29 12:30] LABS: CREATININE 1.2 mg/dL (0.55-1.3)
[2021-08-29 12:31] LABS: TOT PROT 7.9 g/dl (6.4-8.2)
[2021-08-29 12:32] LABS: BILIRUBIN,TOTAL 0.4 mg/dL (0.2-1)
[2021-08-29] MEDS: ARIPiprazole 10 MG TABLET PO SCH (22:21)
[2021-08-29] MEDS: MELATONIN 5 MG TABLETS PO SCH (22:21)
[2021-08-29] MEDS: THIAMINE HCL 100 MG TABLET (FP) PO SCH (22:22)
[2021-08-30] MEDS: hydrOXYzine PAMOATE 25 MG CAPSULE (FP) PO SCH ×5 (05:35→22:18)
[2021-08-30] MEDS: chlordiazePOXIDE HCL 25 MG CAPSULE PO SCH ×4 (05:36→22:18)
[2021-08-30] MEDS: MENTHOL/PHENOL 1 EACH UD MM PRN ×2 (05:38→22:18)
[2021-08-30] MEDS: metFORMIN HCL 500 MG TABLET (FP) PO SCH ×2 (07:03→17:53)
[2021-08-30] MEDS: guaiFENesin 600 MG TABLET.ER (FP) PO SCH ×2 (10:02→22:17)
[2021-08-30] MEDS: amLODIPine BESYLATE 10 MG TABLET (FP) PO SCH (10:02)
[2021-08-30] MEDS: SERTRALINE HCL 50 MG TABLET (FP) PO SCH (10:02)
[2021-08-30] MEDS: PRENATAL VITAMINS W/ FOLIC ACID TABLET (FP) PO SCH (10:02)
[2021-08-30] MEDS: METHYL SALICYLATE/MENTHOL OINT 30 GM TUBE TP SCH (14:25)
[2021-08-30] MEDS: THIAMINE HCL 100 MG TABLET (FP) PO SCH (22:17)
[2021-08-30] MEDS: ARIPiprazole 10 MG TABLET PO SCH (22:18)
[2021-08-30] MEDS: MELATONIN 5 MG TABLETS PO SCH (22:18)
[2021-08-31] MEDS ORDERED: chlordiazePOXIDE HCL 10 MG CAPSULE PO PRN
[2021-08-31] MEDS: hydrOXYzine PAMOATE 25 MG CAPSULE (FP) PO SCH ×5 (05:43→23:44)
[2021-08-31] MEDS: chlordiazePOXIDE HCL 10 MG CAPSULE PO SCH ×4 (05:45→23:43)
[2021-08-31] MEDS: MENTHOL/PHENOL 1 EACH UD MM PRN ×2 (05:46→16:50)
[2021-08-31] MEDS: metFORMIN HCL 500 MG TABLET (FP) PO SCH ×2 (07:35→16:48)
[2021-08-31] MEDS: guaiFENesin 600 MG TABLET.ER (FP) PO SCH (10:13)
[2021-08-31] MEDS: PRENATAL VITAMINS W/ FOLIC ACID TABLET (FP) PO SCH (10:13)
[2021-08-31] MEDS: SERTRALINE HCL 50 MG TABLET (FP) PO SCH (10:13)
[2021-08-31] MEDS: METHYL SALICYLATE/MENTHOL OINT 30 GM TUBE TP SCH (10:13)
[2021-08-31] MEDS: amLODIPine BESYLATE 10 MG TABLET (FP) PO SCH (10:13)
[2021-08-31] MEDS: THIAMINE HCL 100 MG TABLET (FP) PO SCH (22:28)
[2021-08-31] MEDS: ARIPiprazole 10 MG TABLET PO SCH (22:28)
[2021-08-31] MEDS: MELATONIN 5 MG TABLETS PO SCH (23:43)
[2021-09-01] MEDS: chlordiazePOXIDE HCL 10 MG CAPSULE PO SCH ×2 (05:36→17:33)
[2021-09-01] MEDS: hydrOXYzine PAMOATE 25 MG CAPSULE (FP) PO SCH ×5 (05:36→22:39)
[2021-09-01] MEDS: MENTHOL/PHENOL 1 EACH UD MM PRN ×3 (05:38→22:40)
[2021-09-01] MEDS: metFORMIN HCL 500 MG TABLET (FP) PO SCH ×2 (07:25→17:33)
[2021-09-01] MEDS: PRENATAL VITAMINS W/ FOLIC ACID TABLET (FP) PO SCH (10:04)
[2021-09-01] MEDS: amLODIPine BESYLATE 10 MG TABLET (FP) PO SCH (10:04)
[2021-09-01] MEDS: METHYL SALICYLATE/MENTHOL OINT 30 GM TUBE TP SCH (10:04)
[2021-09-01] MEDS: SERTRALINE HCL 50 MG TABLET (FP) PO SCH (22:39)
[2021-09-01] MEDS: MELATONIN 5 MG TABLETS PO SCH (22:39)
[2021-09-01] MEDS: ARIPiprazole 10 MG TABLET PO SCH (22:39)
[2021-09-01] MEDS: THIAMINE HCL 100 MG TABLET (FP) PO SCH (22:39)
[2021-09-02] MEDS ORDERED: chlordiazePOXIDE HCL 10 MG CAPSULE PO ONE (05:00)
[2021-09-02] MEDS: hydrOXYzine PAMOATE 25 MG CAPSULE (FP) PO SCH ×2 (05:44→10:12)
[2021-09-02] MEDS: MENTHOL/PHENOL 1 EACH UD MM PRN ×2 (05:48→10:12)
[2021-09-02] MEDS: metFORMIN HCL 500 MG TABLET (FP) PO SCH (07:42)
[2021-09-02] MEDS: SERTRALINE HCL 50 MG TABLET (FP) PO SCH (10:10)
[2021-09-02] MEDS: PRENATAL VITAMINS W/ FOLIC ACID TABLET (FP) PO SCH (10:10)
[2021-09-02] MEDS: METHYL SALICYLATE/MENTHOL OINT 30 GM TUBE TP SCH (10:12)
[2021-09-02] MEDS: amLODIPine BESYLATE 10 MG TABLET (FP) PO SCH (10:12)
[2021-09-02 11:16] VITALS: BP 122/61; PULSE 69; TEMP 97.3
== END 2021-09-02 10:40 | disposition other institution (70) | DRG 774 ==
LOC: YASAS 11:43 → Y6N 13:44
PROVIDERS: ADMIT Allergy & Immunology; ATTEND Allergy & Immunology
PROC: HZ2ZZZZ Detoxification Services for Substance Abuse Treatment (ICD-10-PCS; principal; 2021-08-28)
DX: F10.230 Alcohol dependence with withdrawal, uncomplicated (principal); F14.20 Cocaine dependence, uncomplicated; F17.210 Nicotine dependence, cigarettes, uncomplicated; F19.282 Other psychoactive substance dependence with psychoactive substance-induced sleep disorder; F20.9 Schizophrenia, unspecified; I10 Essential (primary) hypertension; I83.93 Asymptomatic varicose veins of bilateral lower extremities; E11.9 Type 2 diabetes mellitus without complications; Z79.84 Long term (current) use of oral hypoglycemic drugs; Z99.89 Dependence on other enabling machines and devices; Z88.8 Allergy status to other drugs, medicaments and biological substances; Z59.01 Sheltered homelessness; Z86.19 Personal history of other infectious and parasitic diseases
CPT/HCPCS: 36415; 80053; 82962; 83036; 85027; 86780; 87389; C9803; U0003; U0005

== ENCOUNTER 2021-12-27 12:44 | Inpatient (IN) | payer MEDICARE, OTHER ==
[2021-12-27] MEDS ORDERED: LOPERAMIDE HCL 2 MG CAPSULE PO PRN (14:24)
[2021-12-27] MEDS ORDERED: chlordiazePOXIDE HCL 25 MG CAPSULE PO PRN (14:24)
[2021-12-27] MEDS ORDERED: MAG HYDROX/AL HYDROX/SIMETH 30 ML UNIT-DOSE CUP PO PRN (14:24)
[2021-12-27] MEDS ORDERED: NICOTINE POLACRILEX 4 MG GUM BUC PRN (14:24)
[2021-12-27] MEDS ORDERED: BENZOCAINE/MENTHOL (CHLORASEPTIC ) LOZENGE MM PRN (14:24)
[2021-12-27] MEDS ORDERED: MAGNESIUM HYDROX 2400MG/30ML ORAL SUSPENSION 30 ML CUP PO PRN (14:24)
[2021-12-27] MEDS ORDERED: DICYCLOMINE HCL 10 MG CAPSULE PO PRN (14:24)
[2021-12-27] MEDS ORDERED: MAGNESIUM CITRATE 300 ML BOTTLE PO PRN (14:24)
[2021-12-27] MEDS ORDERED: ONDANSETRON *ODT* 4 MG TABLET SL PRN (14:24)
[2021-12-27] MEDS ORDERED: ACETAMINOPHEN 325 MG TABLET (FP) PO PRN (14:24)
[2021-12-27] MEDS ORDERED: BISMUTH SUBSALICYLATE 262 MG/15 ML BTL PO PRN (14:24)
[2021-12-27 15:25] VITALS: BMI 22.8
[2021-12-27] MEDS: NICOTINE 21 MG/24 HOURS TOPICAL PATCH TD SCH (17:13)
[2021-12-27] MEDS: PRENATAL VITAMINS W/ FOLIC ACID TABLET (FP) PO SCH (17:14)
[2021-12-27] MEDS ORDERED: hydrOXYzine PAMOATE 25 MG CAPSULE (FP) PO PRN (18:00)
[2021-12-27] MEDS: METHYL SALICYLATE/MENTHOL OINT 30 GM TUBE TP SCH (18:35)
[2021-12-27] MEDS: THIAMINE HCL 100 MG TABLET (FP) PO SCH (22:48)
[2021-12-27] MEDS: MELATONIN 5 MG TABLETS PO SCH (22:48)
[2021-12-27] MEDS: chlordiazePOXIDE HCL 25 MG CAPSULE PO SCH (22:49)
[2021-12-28] MEDS: chlordiazePOXIDE HCL 25 MG CAPSULE PO SCH ×4 (05:20→22:11)
[2021-12-28] MEDS: PRENATAL VITAMINS W/ FOLIC ACID TABLET (FP) PO SCH (10:28)
[2021-12-28] MEDS: NICOTINE 21 MG/24 HOURS TOPICAL PATCH TD SCH (10:28)
[2021-12-28] MEDS: METHYL SALICYLATE/MENTHOL OINT 30 GM TUBE TP SCH (10:29)
[2021-12-28 11:11] LABS: HEMATOCRIT 38.7 % (35.4-49); HEMOGLOBIN 12.1 GM/dL (11.7-16.9); MCH 24.1 pg (25.7-33.7); MCHC 31.3 g/dl (32.0-35.9); MEAN CELL VOLUME 77.2 fl (80-96); PLATELET COUNT 166 10^3/uL (134-434); RBC 5.01 M/mm3 (4.00-5.60); RDW 14.5 % (11.9-15.9); WHITE BLOOD COUNT 3.5 K/mm3 (4.0-10.0)
[2021-12-28 12:26] LABS: ALBUMIN 3.5 g/dl (3.4-5.0)
[2021-12-28 12:30] LABS: CALCIUM 8.9 mg/dL (8.5-10.1)
[2021-12-28 12:35] LABS: CREATININE 0.9 mg/dL (0.55-1.3)
[2021-12-28 12:36] LABS: BILIRUBIN,TOTAL 0.2 mg/dL (0.2-1)
[2021-12-28] MEDS: METHOCARBAMOL 500 MG TABLET PO PRN (17:44)
[2021-12-28] MEDS: THIAMINE HCL 100 MG TABLET (FP) PO SCH (22:11)
[2021-12-28] MEDS: MELATONIN 5 MG TABLETS PO SCH (22:11)
[2021-12-29] MEDS: METHOCARBAMOL 500 MG TABLET PO PRN ×2 (05:32→18:42)
[2021-12-29] MEDS: chlordiazePOXIDE HCL 25 MG CAPSULE PO SCH ×4 (05:32→22:23)
[2021-12-29] MEDS: metFORMIN HCL 500 MG TABLET (FP) PO SCH ×2 (07:05→18:42)
[2021-12-29] MEDS: PRENATAL VITAMINS W/ FOLIC ACID TABLET (FP) PO SCH (10:03)
[2021-12-29] MEDS: NICOTINE 21 MG/24 HOURS TOPICAL PATCH TD SCH (10:04)
[2021-12-29] MEDS: METHYL SALICYLATE/MENTHOL OINT 30 GM TUBE TP SCH ×2 (10:04→22:23)
[2021-12-29 10:09] LABS: SARS-CoV-2 NAA Not Detected (Not Detected)
[2021-12-29] MEDS: IBUPROFEN 400 MG TABLET (FP) PO PRN (18:42)
[2021-12-29] MEDS: MELATONIN 5 MG TABLETS PO SCH (22:24)
[2021-12-29] MEDS: LIDOCAINE PATCH REMOVAL MC SCH (22:24)
[2021-12-29] MEDS: THIAMINE HCL 100 MG TABLET (FP) PO SCH (23:55)
[2021-12-30] MEDS ORDERED: chlordiazePOXIDE HCL 10 MG CAPSULE PO PRN
[2021-12-30] MEDS: chlordiazePOXIDE HCL 10 MG CAPSULE PO SCH ×4 (05:57→22:37)
[2021-12-30] MEDS: METHOCARBAMOL 500 MG TABLET PO PRN ×2 (06:01→22:39)
[2021-12-30] MEDS: metFORMIN HCL 500 MG TABLET (FP) PO SCH ×2 (06:01→18:00)
[2021-12-30] MEDS: LIDOCAINE 5% TOPICAL PATCH TP SCH (10:27)
[2021-12-30] MEDS: PRENATAL VITAMINS W/ FOLIC ACID TABLET (FP) PO SCH (10:27)
[2021-12-30] MEDS: METHYL SALICYLATE/MENTHOL OINT 30 GM TUBE TP SCH ×3 (10:28→22:34)
[2021-12-30] MEDS: NICOTINE 21 MG/24 HOURS TOPICAL PATCH TD SCH (10:28)
[2021-12-30] MEDS: IBUPROFEN 400 MG TABLET (FP) PO PRN ×2 (13:02→22:39)
[2021-12-30] MEDS: THIAMINE HCL 100 MG TABLET (FP) PO SCH (22:34)
[2021-12-30] MEDS: LIDOCAINE PATCH REMOVAL MC SCH (22:35)
[2021-12-30] MEDS: MELATONIN 5 MG TABLETS PO SCH (22:37)
[2021-12-31] MEDS: metFORMIN HCL 500 MG TABLET (FP) PO SCH ×2 (06:13→16:58)
[2021-12-31] MEDS: chlordiazePOXIDE HCL 10 MG CAPSULE PO SCH ×2 (06:13→16:58)
[2021-12-31] MEDS: LIDOCAINE 5% TOPICAL PATCH TP SCH (10:09)
[2021-12-31] MEDS: PRENATAL VITAMINS W/ FOLIC ACID TABLET (FP) PO SCH (10:09)
[2021-12-31] MEDS: IBUPROFEN 400 MG TABLET (FP) PO PRN (10:09)
[2021-12-31] MEDS: METHYL SALICYLATE/MENTHOL OINT 30 GM TUBE TP SCH ×3 (10:09→22:16)
[2021-12-31] MEDS: NICOTINE 21 MG/24 HOURS TOPICAL PATCH TD SCH (10:11)
[2021-12-31] MEDS: ACETAMINOPHEN 325 MG TABLET (FP) PO PRN (15:14)
[2021-12-31] MEDS: THIAMINE HCL 100 MG TABLET (FP) PO SCH (22:16)
[2021-12-31] MEDS: MELATONIN 5 MG TABLETS PO SCH (22:16)
[2021-12-31] MEDS: LIDOCAINE PATCH REMOVAL MC SCH (22:16)
[2021-12-31] MEDS: METHOCARBAMOL 500 MG TABLET PO PRN (22:17)
[2022-01-01] MEDS: IBUPROFEN 400 MG TABLET (FP) PO PRN (02:24)
[2022-01-01] MEDS ORDERED: chlordiazePOXIDE HCL 10 MG CAPSULE PO ONE (05:00)
[2022-01-01] MEDS: METHOCARBAMOL 500 MG TABLET PO PRN (05:37)
[2022-01-01] MEDS: ACETAMINOPHEN 325 MG TABLET (FP) PO PRN (05:39)
[2022-01-01] MEDS: metFORMIN HCL 500 MG TABLET (FP) PO SCH (06:18)
[2022-01-01 09:24] VITALS: BP 154/86; PULSE 91; TEMP 97.8
== END 2022-01-01 09:16 | disposition home or self-care (01) | DRG 897 ==
LOC: YASAS 12:44 → Y3N 16:08
PROVIDERS: ADMIT Allergy & Immunology; ATTEND Allergy & Immunology
PROC: HZ2ZZZZ Detoxification Services for Substance Abuse Treatment (ICD-10-PCS; principal; 2021-12-27)
DX: F10.230 Alcohol dependence with withdrawal, uncomplicated (principal); F14.20 Cocaine dependence, uncomplicated; F19.280 Other psychoactive substance dependence with psychoactive substance-induced anxiety disorder; F19.282 Other psychoactive substance dependence with psychoactive substance-induced sleep disorder; F17.210 Nicotine dependence, cigarettes, uncomplicated; F20.9 Schizophrenia, unspecified; F32.A Depression, unspecified; E78.5 Hyperlipidemia, unspecified; E78.00 Pure hypercholesterolemia, unspecified; E11.65 Type 2 diabetes mellitus with hyperglycemia; Z79.84 Long term (current) use of oral hypoglycemic drugs; I10 Essential (primary) hypertension; M17.0 Bilateral primary osteoarthritis of knee; Z86.19 Personal history of other infectious and parasitic diseases; Z99.89 Dependence on other enabling machines and devices; Z88.8 Allergy status to other drugs, medicaments and biological substances
CPT/HCPCS: 36415; 80053; 82962; 85027; 86780; C9803-CS; U0003; U0005

== ENCOUNTER 2024-11-10 10:51 | Inpatient (IN) | payer OTHER ==
[2024-11-10 11:24] VITALS: BMI 21.9
[2024-11-10] MEDS ORDERED: NALOXONE (NARCAN) HCL 4 MG/0.1 ML SPRAY NS PRN (11:40)
[2024-11-10] MEDS ORDERED: BENZOCAINE/MENTHOL (CHLORASEPTIC ) LOZENGE MM PRN (11:40)
[2024-11-10] MEDS ORDERED: LOPERAMIDE HCL 2 MG CAPSULE PO PRN (11:40)
[2024-11-10] MEDS ORDERED: MAG HYDROX/AL HYDROX/SIMETH 30 ML UNIT-DOSE CUP PO PRN (11:40)
[2024-11-10] MEDS ORDERED: ACETAMINOPHEN 325 MG TABLET (FP) PO PRN (11:40)
[2024-11-10] MEDS ORDERED: IBUPROFEN 400 MG TABLET (FP) PO PRN (11:40)
[2024-11-10] MEDS ORDERED: MAGNESIUM HYDROX 2400MG/30ML ORAL SUSPENSION 30 ML CUP PO PRN (11:40)
[2024-11-10] MEDS ORDERED: guaiFENesin 600 MG TABLET.ER (FP) PO PRN (11:40)
[2024-11-10] MEDS ORDERED: POLYETHYLENE GLYCOL (HEALTHYLAX) 3350 17 GM PACKET PO PRN (11:40)
[2024-11-10] MEDS ORDERED: BENZONATATE 200 MG CAPSULE PO PRN (11:40)
[2024-11-10] MEDS: MELATONIN 5 MG TABLETS PO SCH (22:50)
[2024-11-10] MEDS: THIAMINE 100 MG TABLET PO SCH (22:50)
[2024-11-11] MEDS: PRENATAL VITAMINS W/ FOLIC ACID TABLET (FP) PO SCH (09:27)
[2024-11-11 10:58] LABS: HEMATOCRIT 38.5 % (40.1-51.0); HEMOGLOBIN 11.8 g/dL (13.7-17.5); MCHC 30.6 g/dl (32.3-36.5); MEAN CELL VOLUME 78.1 fl (79.0-92.2); MEAN PLT VOLUME 11.6 fl (9.4-12.4); PLATELET COUNT 146 x10^3/uL (163-337); RDW 14.2 % (12.2-16.4)
[2024-11-11 11:02] LABS: POTASSIUM 3.7 mmol/L (3.5-5.1)
[2024-11-11 11:08] LABS: ALBUMIN 3.3 g/dl (3.4-5.0); BLOOD UREA NITROGEN 16.4 mg/dL (7-18)
[2024-11-11 11:09] LABS: CALCIUM 8.6 mg/dL (8.5-10.1)
[2024-11-11 11:13] LABS: BILIRUBIN,TOTAL 0.4 mg/dL (0.2-1); TOT PROT 6.7 g/dl (6.4-8.2)
[2024-11-11 17:34] LABS: EPI CELLS 4 /uL (0-25.1); HYALINE CASTS 0 /uL (0-3.1); URINE APPEARANCE CLEAR; URINE BACTERIA 193 /uL (0-1359); URINE BILIRUBIN NEGATIVE (NEGATIVE); URINE COLOR YELLOW; URINE GLUCOSE (UA) NEGATIVE (NEGATIVE); URINE KETONE NEGATIVE (NEGATIVE); URINE LEUK ESTERASE 1+ (NEGATIVE); URINE NITRITE NEGATIVE (NEGATIVE); URINE PROTEIN NEGATIVE (NEGATIVE); URINE RBC 2 /uL (0-23.9); URINE UROBILINOGEN 0.2 mg/dL (0.2-1.0); URINE WBC 23 /uL (0-25.8)
[2024-11-11] MEDS: OLANZapine 5 MG TABLET PO SCH (21:11)
[2024-11-20] MEDS: IBUPROFEN 600 MG TABLET (FP) PO PRN (18:15)
[2024-11-21] MEDS: amLODIPine BESYLATE 5 MG TABLET (FP) PO SCH (09:39)
[2024-11-23 12:52] LABS: HIV INTERPRETATION NEGATIVE (NEGATIVE)
[2024-11-25 06:55] VITALS: RESP 18
[2024-11-25] MEDS: CARBAMIDE PEROXIDE 6.5% OTIC 15 ML BOTTLE AU SCH (14:33)
[2024-12-01 06:31] VITALS: PULSE 87
[2024-12-01 11:36] VITALS: BP 134/72; TEMP 97.8
== END 2024-12-01 09:42 | disposition home or self-care (01) | DRG 895 ==
LOC: YASAS 10:51 → Y3NR 13:10 → Y5N 11-11 11:01
PROVIDERS: ADMIT Psychiatry & Neurology Pain Medicine; ATTEND Psychiatry & Neurology Pain Medicine
PROC: HZ42ZZZ Group Counseling for Substance Abuse Treatment, Cognitive-Behavioral (ICD-10-PCS; principal; 2024-11-10)
DX: F10.20 Alcohol dependence, uncomplicated (principal); F14.20 Cocaine dependence, uncomplicated; F17.210 Nicotine dependence, cigarettes, uncomplicated; F25.9 Schizoaffective disorder, unspecified; D72.819 Decreased white blood cell count, unspecified; D64.9 Anemia, unspecified; E78.5 Hyperlipidemia, unspecified; I10 Essential (primary) hypertension; M17.12 Unilateral primary osteoarthritis, left knee; E11.9 Type 2 diabetes mellitus without complications; Z79.84 Long term (current) use of oral hypoglycemic drugs; Z88.8 Allergy status to other drugs, medicaments and biological substances
CPT/HCPCS: 36415; 80053; 80305; 80307; 81003; 82962; 85027; 86780; 87389; 87811

== ENCOUNTER 2025-03-29 17:59 | Inpatient (IN) | payer OTHER ==
[2025-03-29 18:28] VITALS: BMI 22.5
[2025-03-29] MEDS ORDERED: LOPERAMIDE HCL 2 MG CAPSULE PO PRN (21:09)
[2025-03-29] MEDS ORDERED: MAG HYDROX/AL HYDROX/SIMETH 30 ML UNIT-DOSE CUP PO PRN (21:09)
[2025-03-29] MEDS ORDERED: BENZOCAINE/MENTHOL (CHLORASEPTIC ) LOZENGE MM PRN (21:09)
[2025-03-29] MEDS ORDERED: guaiFENesin 600 MG TABLET.ER (FP) PO PRN (21:09)
[2025-03-29] MEDS ORDERED: NALOXONE (NARCAN) HCL 4 MG/0.1 ML SPRAY NS PRN (21:09)
[2025-03-29] MEDS ORDERED: BENZONATATE 200 MG CAPSULE PO PRN (21:09)
[2025-03-29] MEDS ORDERED: MAGNESIUM HYDROX 2400MG/30ML ORAL SUSPENSION 30 ML CUP PO PRN (21:09)
[2025-03-29] MEDS ORDERED: IBUPROFEN 400 MG TABLET (FP) PO PRN (21:09)
[2025-03-29] MEDS ORDERED: POLYETHYLENE GLYCOL (HEALTHYLAX) 3350 17 GM PACKET PO PRN (21:09)
[2025-03-29] MEDS: MELATONIN 5 MG TABLETS PO SCH (22:35)
[2025-03-29] MEDS: THIAMINE 100 MG TABLET PO SCH (22:35)
[2025-03-30] MEDS: PRENATAL VITAMINS W/ FOLIC ACID TABLET (FP) PO SCH (09:34)
[2025-03-30 11:28] LABS: MCHC 30.6 g/dl (32.3-36.5); MEAN CELL VOLUME 78.0 fl (79.0-92.2); MEAN PLT VOLUME 11.3 fl (9.4-12.4); RDW 14.3 % (12.2-16.4)
[2025-03-30 11:49] LABS: EPI CELLS 4 /uL (0-25.1); HYALINE CASTS 0 /uL (0-3.1); URINE APPEARANCE CLOUDY; URINE BACTERIA >9,000 /uL (0-1359); URINE BILIRUBIN NEGATIVE (NEGATIVE); URINE COLOR YELLOW; URINE GLUCOSE (UA) NEGATIVE (NEGATIVE); URINE KETONE NEGATIVE (NEGATIVE); URINE LEUK ESTERASE NEGATIVE (NEGATIVE); URINE NITRITE POSITIVE (NEGATIVE); URINE PROTEIN TRACE (NEGATIVE); URINE RBC 11 /uL (0-23.9); URINE UROBILINOGEN 1.0 mg/dL (0.2-1.0); URINE WBC 18 /uL (0-25.8)
[2025-03-30 12:01] LABS: CO2 27 mmol/L (21-32); GLUCOSE,RANDOM 96 mg/dL (74-106)
[2025-03-30 12:04] LABS: CREATININE 0.8 mg/dL (0.55-1.3); SGOT/AST 13 U/L (15-37); SGPT/ALT 16 U/L (13-61)
[2025-03-30 12:06] LABS: TOT PROT 6.9 g/dl (6.4-8.2)
[2025-03-30 12:07] LABS: ALK PHOS 102 U/L (45-117)
[2025-03-30] MEDS: hydrOXYzine PAMOATE 25 MG CAPSULE (FP) PO PRN (14:43)
[2025-03-30] MEDS: amLODIPine BESYLATE 5 MG TABLET (FP) PO SCH (16:31)
[2025-03-30 16:53] LABS: EPI CELLS 35 /uL (0-25.1); HYALINE CASTS 10 /uL (0-3.1); URINE APPEARANCE CLEAR; URINE BACTERIA 4052 /uL (0-1359); URINE BILIRUBIN NEGATIVE (NEGATIVE); URINE COLOR YELLOW; URINE GLUCOSE (UA) NEGATIVE (NEGATIVE); URINE KETONE NEGATIVE (NEGATIVE); URINE LEUK ESTERASE 1+ (NEGATIVE); URINE NITRITE NEGATIVE (NEGATIVE); URINE PROTEIN NEGATIVE (NEGATIVE); URINE RBC 4 /uL (0-23.9); URINE UROBILINOGEN 1.0 mg/dL (0.2-1.0); URINE WBC 24 /uL (0-25.8)
[2025-04-01] MEDS: metFORMIN HCL 500 MG TABLET (FP) PO SCH (09:57)
[2025-04-09] MEDS: ACETAMINOPHEN 325 MG TABLET (FP) PO PRN (10:18)
[2025-04-10] MEDS: IBUPROFEN 600 MG TABLET (FP) PO PRN (16:59)
[2025-04-19 06:30] VITALS: RESP 16
[2025-04-20 06:57] VITALS: TEMP 97.4
[2025-04-20 10:40] VITALS: BP 146/96; PULSE 98
== END 2025-04-20 10:08 | disposition home or self-care (01) | DRG 895 ==
LOC: YASAS 17:59 → Y3NR 21:20 → Y5N 03-30 12:21
PROVIDERS: ADMIT Neuromusculoskeletal Medicine & OMM; ATTEND Psychiatry & Neurology Pain Medicine
PROC: HZ42ZZZ Group Counseling for Substance Abuse Treatment, Cognitive-Behavioral (ICD-10-PCS; principal; 2025-03-29)
DX: F14.20 Cocaine dependence, uncomplicated (principal); F10.20 Alcohol dependence, uncomplicated; F12.20 Cannabis dependence, uncomplicated; F17.210 Nicotine dependence, cigarettes, uncomplicated; F25.9 Schizoaffective disorder, unspecified; D64.9 Anemia, unspecified; I10 Essential (primary) hypertension; E11.9 Type 2 diabetes mellitus without complications; Z79.84 Long term (current) use of oral hypoglycemic drugs; M17.0 Bilateral primary osteoarthritis of knee; B18.2 Chronic viral hepatitis C; Z87.11 Personal history of peptic ulcer disease; Z88.8 Allergy status to other drugs, medicaments and biological substances
CPT/HCPCS: 36415; 80053; 80305; 80307; 81003; 82962; 85027; 86780; 87811; 93005; 93010